=== PATIENT | male | born 1940 | race Caucasian/White ===

== ENCOUNTER 2016-11-21 14:34 | Inpatient (IN) | payer MEDICARE, BC ==
[~2016-11-21] VITALS: Ht 175.3 cm; Wt 77.1 kg
[~2016-11-21 14:34] MED LIST: ADVIL200 MG PO; ASPIRIN 81 MG E81 MG PO; BAYER CHEWABLE81 MG PO; BENADRYL25 MG PO; CYCLOBENZAPRINE10 MG PO; DEMEROL100 MG PO; DESERYL100 MG PO; DURAGESIC1 PATCH .1 TD; FLEXERIL10 MG PO; FOLATE0.4 MG PO; LEVOXYL50 MCG PO; MUCINEX600 MG PO; NASONEX NASAL S17 GM NS; OMEGA-3100 MG PO; OMNICEF300 MG PO; OXY IR30 MG PO; PEPCID20 MG PO; PLAVIX75 MG PO; SINGULAIR10 MG PO; VITAMIN B-12500 MC1 PO; VOLTAREN75 MG PO
[2016-11-21 15:04] LABS: BASOPHILS 0.2 % (0.0-2.0); EOSINOPHILS 3.3 % (0-7); HEMATOCRIT 40.7 % (42.0-54.0); HEMOGLOBIN 13.5 g/dL (13.5-17.5); IMMATURE GRANULOCYTES 0.3 % (0-5); LYMPHOCYTES 20.1 % (15-50); MCH 31.8 pg (26.0-34.0); MCHC 33.2 g/dL (31.0-37.0); MEAN PLATELET VOLUME 8.7 fL (7.4-10.4); MONOCYTES 9.4 % (2-11); NEUTROPHILS 66.7 % (40-80); RBC 4.24 10x6/uL (4.20-6.10); RDW 13.3 % (11.5-14.5); WBC 10.8 10x3/uL (4.8-10.8)
[2016-11-21 15:08] LABS: PLATELET COUNT 275 10x3/uL (130-400)
[2016-11-21 15:19] LABS: ALBUMIN 3.3 g/dL (3.4-5.0); ANION GAP 12.5 mmol/L (8-16); BILIRUBIN - TOTAL 0.53 mg/dL (0.2-1.3); CALCIUM 8.8 mg/dL (8.5-10.1); CREATININE - SERUM 1.5 mg/dL (0.6-1.3); POTASSIUM - SERUM 4.5 mmol/L (3.5-5.1)
[2016-11-21 16:47] LABS: APPEARANCE CLEAR (CLEAR); BILIRUBIN NEGATIVE (NEGATIVE); COLOR YELLOW (YELLOW); GLUCOSE NEGATIVE (NEGATIVE); KETONE NEGATIVE (NEGATIVE); LEUKOCYTE ESTERASE NEGATIVE (NEGATIVE); NITRITE NEGATIVE (NEGATIVE); PROTEIN NEGATIVE (NEGATIVE); SPECIFIC GRAVITY 1.015 (1.005-1.020); UROBILINOGEN NORMAL (NORMAL)
[2016-11-21 17:57] LABS: INR 1.04 (0.85-1.17); PROTIME 13.5 SECONDS (11.6-15.0)
[2016-11-21 18:05] LABS: AMYLASE - SERUM 46 U/L (25-115); LIPASE 71 U/L (73-393)
--- NOTE | 2016-11-21 22:03 | NUR ---
REC'D PER STRETCHER TO ROOM 2233 FROM ER DEPT A 76 Y/O W/M PER SERVICES DR. BOOGIE WITH DX. DIVERTICULITIS AND ABDOMINAL PAIN. ALLERGY=TALWIN. SALINE LOCK TO RT HAND AND LEAKING. IV REMOVED AND NEW IV STARTED TO RT ARM PER Yoly BARRY RN. PLUCK SEPARATOR OF DILAUDID SET UP.WITH SETTINGS AT 0.2MG Q10MIN /4MG Q4HL D5NS INFUSING AT 100CC'S/HR.ASSESSMENT PER ADMIT PACKET.
[2016-11-21 22:15] VITALS: BP 138/63; BMI 25.1
[2016-11-21] MEDS ORDERED: MUCINEX600 MG PO (22:30)
[2016-11-21] MEDS ORDERED: ADVAIR 250/501 DISK INH (22:32)
[2016-11-21] MEDS ORDERED: CLARITIN 10 MG10 MG PO (22:32)
--- NOTE | 2016-11-21 22:45 | NUR ---
VOIDS IN URINAL.
[2016-11-22] VITALS: BP 138/63
--- NOTE | 2016-11-22 | NUR ---
EYES CLOSED RESPIRATIONS WITH EASE AND UNLABORED.
--- NOTE | 2016-11-22 03:00 | NUR ---
VOIDS IN URINAL DENIES NEEDS.
[2016-11-22 04:00] VITALS: BP 119/57
--- NOTE | 2016-11-22 04:39 | NUR ---
EYES CLOSED RESPIRATIONS WITH EASE AND UNLABORED.
--- NOTE | 2016-11-22 07:54 | NUR ---
RECIEVED PATIENT DURING WALKING ROUNDS. PATIENT LYING IN BED WITH EVEN RESPIRATIONS. NO SIGNS OF DISTRESS NOTED. BED DOES NOT LOWER ALL THE WAY TO GROUND, WILL LOOK FOR NEW BED. UNDERSTANDS NPO DIET; NO QUESTIONS OR CONCERNS. ASSESSMENT DONE PER FLOW SHEET. CALL LIGHT WITHIN REACH. WILL CONTINUE TO MONITOR.
[2016-11-22 08:26] VITALS: BP 136/62
[2016-11-22 11:52] VITALS: BP 131/46
[2016-11-22 14:33] VITALS: BP 130/56
--- NOTE | 2016-11-22 14:42 | NUR ---
PATIENT AWAKE, ALERT AND ORIENTED X'S 4. RESPIRATIONS ARE EVEN AND UNLABORED ON ROOM AIR. NO SIGNS OF DISTRESS NOTED. FAMILY AT BEDSIDE.
[2016-11-22 16:49] VITALS: Ht 175.3 cm; Wt 77.1 kg
--- NOTE | 2016-11-22 20:00 | NUR ---
ASSESSMENT AK FLOWSHEET.IV TO RT FOREARM OF D5NS AT 75CC'S/HR. SR UP X2 CALL LIGHT WITHIN REACH.
--- NOTE | 2016-11-22 20:30 | NUR ---
C/O PAIN BACK/HEAD AND STOMACH. RATES PAIN LEVEL #5-6. BUPRENEX 0.3MG IVP GIVEN FOR PAIN CONTROL.
--- NOTE | 2016-11-22 21:00 | NUR ---
MEDS GIVEN PER MAR.
--- NOTE | 2016-11-22 22:00 | NUR ---
IV SWELLING AT SITE PAINFUL AND RED. IV REMOVED AND RESITED TO LEFT FOREARM #22G ANGIOCATH USED X1 ATTEMPT RESUMED IV FLUIDS.
[2016-11-22 22:11] VITALS: BP 140/74
--- NOTE | 2016-11-23 | NUR ---
RESTING QUIETLY AT THIS TIME.
--- NOTE | 2016-11-23 02:30 | NUR ---
REQUESTING PAIN MED FOR PAIN IN BACK AND HEAD RATES PAIN LEVEL #7-8. ACHING AND CRAMPING. BUPRENEX 0.3MG IVP GIVEN FOR PAIN CONTROL.
[2016-11-23 02:59] VITALS: BP 122/59
--- NOTE | 2016-11-23 04:57 | NUR ---
RESTING QUIETLY DENIES NEEDS.
--- NOTE | 2016-11-23 06:13 | NUR ---
C/O HEAD AND BACK PAIN BUPRENEX 0.3MG IVP GIVEN FOR PAIN CONTROL RATES PAIN LEVEL #6
--- NOTE | 2016-11-23 08:01 | NUR ---
PATIENT VERBALIZED NAUSEA, NOW RETCHING. PAGED . NO ORDERS FOR NAUSEA MEDICATION. ALSO PATIENT VERBALIZED A HEADACHE AND SERVERE CHRONIC PAIN.
[2016-11-23 08:42] VITALS: BP 171/83
--- NOTE | 2016-11-23 08:57 | NUR ---
REPORTS NAUSEA IS GONE
[2016-11-23 11:41] LABS: BASOPHILS 0.1 % (0.0-2.0); EOSINOPHILS 1.2 % (0-7); HEMATOCRIT 33.7 % (42.0-54.0); HEMOGLOBIN 11.1 g/dL (13.5-17.5); IMMATURE GRANULOCYTES 0.3 % (0-5); MCH 31.1 pg (26.0-34.0); MCHC 32.9 g/dL (31.0-37.0); MCV 94.4 fL (80.0-100.0); MEAN PLATELET VOLUME 8.5 fL (7.4-10.4); MONOCYTES 10.3 % (2-11); NEUTROPHILS 72.1 % (40-80); PLATELET COUNT 230 10x3/uL (130-400); RBC 3.57 10x6/uL (4.20-6.10); RDW 13.1 % (11.5-14.5)
[2016-11-23 11:42] LABS: WBC 7.8 10x3/uL (4.8-10.8)
[2016-11-23 11:55] LABS: ALBUMIN 2.6 g/dL (3.4-5.0); ANION GAP 9.7 mmol/L (8-16); BILIRUBIN - TOTAL 0.18 mg/dL (0.2-1.3); CALCIUM 7.8 mg/dL (8.5-10.1); CARBON DIOXIDE 28.6 mmol/L (21.0-32.0); CREATININE - SERUM 1.2 mg/dL (0.6-1.3); PROTEIN - SERUM 5.7 g/dL (6.4-8.2)
[2016-11-23 11:57] LABS: POTASSIUM - SERUM 3.3 mmol/L (3.5-5.1)
[2016-11-23 11:58] VITALS: BP 122/72
[2016-11-23 15:11] VITALS: BP 136/62
--- NOTE | 2016-11-23 19:30 | NUR ---
ASSESSMENT COMPLETED, NO ACUTE DISTRESS NOTED, C/O CHRONIC NECK AND BACK PAIN, WILL TREAT WHEN MEDICATION TIME LIMITS HAVE PASSED, DENIES OTHER NEEDS, SR'S UP, CL IN REACH, WILL MONITOR
[2016-11-23 20:30] VITALS: BP 134/69
--- NOTE | 2016-11-23 21:00 | NUR ---
MEDS GIVEN PER MAR, NO DISTRESS OR NEEDS, NOTED, SR'S UP , CL IN REACH
--- NOTE | 2016-11-23 21:57 | NUR ---
IV AB'S AND FLUIDS HUNG PER DEC, ARMBOARD PROVIDED TO ASSIST WITH NOT BENDING R ARM, PRESTON WELL, CL IN REACH
--- NOTE | 2016-11-23 22:29 | NUR ---
PRN PAIN MED GIVEN FOR C/O NECK AND BACK PAIN 05/04, PRESTON WELL, CL IN REACH
--- NOTE | 2016-11-24 03:37 | NUR ---
PRN PAIN MED GIVEN FOR C/O NECK/BACK PAIN 04/04 ALONG WITH SCHEDULED REGLAN, PRESTON WELL, CL IN REACH
[2016-11-24 05:30] VITALS: BP 111/60
--- NOTE | 2016-11-24 05:35 | NUR ---
MEDS GIVEN PER MAR, PRESTON WELL, DENIES NEEDS, CL IN REACH
--- NOTE | 2016-11-24 08:00 | NUR ---
ASSESSMENT PER FLOW SHEET.PT WITHOUT DISTRESS.CALL LIGHT IN REACH
[2016-11-24 08:39] VITALS: BP 169/79
[2016-11-24 09:32] LABS: BASOPHILS 0.3 % (0.0-2.0); EOSINOPHILS 2.3 % (0-7); HEMATOCRIT 33.6 % (42.0-54.0); HEMOGLOBIN 11.1 g/dL (13.5-17.5); IMMATURE GRANULOCYTES 0.2 % (0-5); LYMPHOCYTES 21.2 % (15-50); MCV 93.9 fL (80.0-100.0); MEAN PLATELET VOLUME 8.5 fL (7.4-10.4); MONOCYTES 9.5 % (2-11); NEUTROPHILS 66.5 % (40-80); PLATELET COUNT 219 10x3/uL (130-400); RBC 3.58 10x6/uL (4.20-6.10); RDW 13.2 % (11.5-14.5)
[2016-11-24] MEDS ORDERED: LEVAQUIN750 MG PO (09:47)
[2016-11-24] MEDS ORDERED: FLAGYL500 MG PO (09:48)
--- NOTE | 2016-11-24 09:50 | NUR ---
Patient Name: TRACY WEST Admission Status: ER Accout number: [id number] Admission Date: 11-21-2016 : 1940 Admission Diagnosis: Attending: ALEX Current LOS: 3 Anticipated DC Date: 11-24-2016 Planned Disposition: Home Primary Insurance: MEDICARE A & B Discharge Planning Comments: CM MET WITH PATIENT REGARDING D/C NEEDS AND PLANS. PATIENT STATED HE LIVES WITH HIS (STAN) AND SHE WILL PICK HIM UP TODAY AT DISCHARGE. PATIENT STATED THERE ARE 2 STEPS W/RAILS TO ENTER HOME AND 1 FLIGHT W/RAILS DOWNSTAIRS. PATIENT STATED HE IS INDEPENDENT WITH HIS CARE AND HAS A CANE, WHEELCHAIR, AND SHOWER CHAIR AT HOME IF NEEDED. PATIENTS PCP IS DR. ONTIVEROS AND PHARMACY IS [facility]. PATIENT DENIES NEEDS FOR HOME HEALTH. CM WILL CONTINUE TO FOLLOW PATIENT WITH D/C NEEDS AND PLANS. PCP DR. [facility]- [phone] STAN (SPOUSE) [phone] Radiation Oncology Therapist: Julisa Molina Is the patient Alert and Oriented? Yes 0 * How many steps to enter\exit or inside your home? 2 W/RAILS 0 * PCP DR ONTIVEROS 0 * Pharmacy [facility] 0 * Preadmission Environment Home with Family 0 * ADLs Independent 0 * Equipment Cane Shower Chair Wheelchair 0 * List name and contact numbers for known caregivers / representatives who currently or will assist patient after discharge: STAN (SPOUSE) [phone] 0 * Community resources currently utilized None 0 * Additional services required to return to the preadmission environment? Yes 0 * Can the patient safely return to the preadmission environment? Yes 0 * Has this patient been hospitalized within the prior 30 days at any hospital? No 0 Grand Total: 0
[2016-11-24 09:59] LABS: ALBUMIN 2.6 g/dL (3.4-5.0); ANION GAP 8.1 mmol/L (8-16); BILIRUBIN - TOTAL 0.3 mg/dL (0.2-1.3); CALCIUM 7.8 mg/dL (8.5-10.1); CARBON DIOXIDE 29.2 mmol/L (21.0-32.0); CREATININE - SERUM 1.3 mg/dL (0.6-1.3); POTASSIUM - SERUM 3.3 mmol/L (3.5-5.1); PROTEIN - SERUM 5.6 g/dL (6.4-8.2)
--- NOTE | 2016-11-24 10:45 | NUR ---
LEFT FLOOR VIA WHEELCHAIR FOR TRANSPORT HOME
== END 2016-11-24 10:45 | disposition home or self-care (01) | DRG 392 ==
LOC: D.ER 14:34 → D.MS 20:14
PROVIDERS: Emergency Medicine; Family Medicine Adult Medicine; ADMIT Family Medicine
DX: K57.92 Diverticulitis of intestine, part unspecified, without perforation or abscess without bleeding (principal); J44.9 Chronic obstructive pulmonary disease, unspecified; I25.10 Atherosclerotic heart disease of native coronary artery without angina pectoris; K21.9 Gastro-esophageal reflux disease without esophagitis; E03.9 Hypothyroidism, unspecified; K76.0 Fatty (change of) liver, not elsewhere classified; Z87.891 Personal history of nicotine dependence

== ENCOUNTER 2016-12-12 06:49 | Outpatient (CLI) | payer MEDICARE, BC ==
[~2016-12-12] VITALS: Ht 175.3 cm; Wt 76.4 kg
--- NOTE | ~2016-12-12 | HEMODYNAMI ---
PATIENT:TRACY WEST MEDICAL RECORD: [id number] : 42 LOCATION:DPanCAT ADMISSION DATE: 12/12/16 Generatedon:12/12/201610:31 Patient name: TRACY WEST Patient #: [id number] SSN: [id number] : 1940 Date of study: 12/12/2016 Page: Of Hemodynamic Procedure Report Patient Data Patient Demographics Procedure consent was obtained First Name: TRACY Gender: Male Last Name: JENNA : 1940 [facility] Initial: R Age: 76 year(s) Patient #: [id number] Race: Ethnicity: or SSN: [id number] Additional ID: [id number] Contact details Address: [address] [place] [address] [place] [employer] State: [place] City: [place] Zip code: [address] Past Medical History Allergies Allergen Reaction Date Comments Reported Other allergy 11/27/2015 GATITO Other allergy 12/12/2016 MARTI MEDEROS Admission Admission Data Admission Date: 12/12/2016 Admission Time: 6:49 Arrival Date: 12/12/2016 Arrival Time: 9:00 Admit Source: Other Insurance Payor: Medicare Height (in.): 69 BSA: 1.92 (m2) Height (cm.): 175.26 BMI: 24.81 (kg/m2) Weight (lbs.): 168 Weight (kg.): 76.2 Lab Results Lab Result Date: 12/12/2016 Lab Result Time: 0:00 Biochemistry Name Units Result Min Max BUN mg/dl 12 --(-*--)-- 7 18 Creatinine mg/dl 1.3 --(---*)-- 0.6 1.3 CBC Name Units Result Min Max Hemoglobin g/dl 12.2 *-(----)-- 13.5 17.5 Procedure Procedure Types Cath Procedure Diagnostic Procedure LHC LHC w/Coronaries w/Grafts PCI Procedure Coronary Stent Initial Miscellaneous Procedures Moderate Sedation up to 30 minutes Procedure Description Procedure Date Procedure Date: 12/12/2016 Procedure Start Time: 10:12 Procedure End Time: 10:29 Procedure Staff Name Function Magno Roque MD Performing Physician Kelle Lund RT Scrub Joseph Galvez RN Nurse Denae Stephenson RT Monitor Caleb Palma RT Board Certified Orthodontist Procedure Data Cath Procedure Fluoroscopy Diagnostic fluoroscopy Total fluoroscopy Time: 3.7 time: 3.7 min min Diagnostic fluoroscopy Total fluoroscopy dose: 265 dose: 265 mGy mGy Contrast Material Contrast Material Type Amount (ml) Isovue 370 86 Entry Location Entry Primary Successful Side Size Upsize Upsize Entry Closure Succes sful Closure Location (Fr) 1 (Fr) 2 (Fr) Remarks Device Remarks Femoral Right 5 Fr 6 Fr Exoseal artery Short Estimated blood loss: 5 ml Diagnostic catheters Device Type Used For End Catheter Placement Cordis 5Fr Pigtail LV Angiography Catheter (MP) Cordis 5Fr JL 4.0 Left Coronary Catheter (MP) Angiography Cordis 5Fr 3DRC Catheter Right Coronary (MP) Angiography Diagnostic Infinity 5Fr SVG Angiography AR 2 MOD catheter Procedure Complications No complications Procedure Medications Medication Administration Route Dosage Oxygen NC 2 l/min Lidocaine 2% added to field 20 Heparin Flush Bag added to field 2 bags (1000units/500ml NS) 0.9% NaCl I.V. ml/hr Versed I.V. 1 mg Fentanyl I.V. 50 mcg Versed I.V. 1 mg Fentanyl I.V. 50 mcg Versed I.V. 1 mg Heparin Bolus I.V. 4000 units Versed I.V. 1 mg Plavix P.O. 75 mg Hemodynamics Rest BSA: 1.92 (m2) HGB: 12.2 (g/dl) O2 Consumption: Estimated: 237.27 (ml/min) O2 Co nsumption indexed: Estimated:123.58 (ml/min/m) Heart Rate: 93 (bpm) Pressure Samples Time Site Value (mmHg) Purpose Heart Use Rate(bpm) 10:13 LV -2/-3,-7 Snapshot 85 Snapshots Pre Cath Intra NCS Post Cath Vital Signs Time Heart Resp SPO2 etCO2 [id number] NIBP (mmHg) Rhythm Pain Sedation Rate (ipm) (%) (mmHg) (mmHg) Status Level (bpm) 9:48:14 89 17 96 0 0 156/81(122) NSR 0 (11) 10(A) , No pain 9:52:30 92 25 100 0 0 154/84(130) NSR 0 (11) 10(A) , No pain 9:56:52 83 18 99 0 0 138/69(120) NSR 0 (11) 10(A) , No pain 10:01:10 85 18 99 0 0 137/66(105) NSR 0 (11) 10(A) , No pain 10:05:22 83 17 98 0 0 130/71(96) NSR 0 (11) 10(A) , No pain 10:09:36 83 16 98 0 0 126/69(91) NSR 0 (11) 10(A) , No pain 10:13:52 96 19 98 0 0 126/60(98) NSR 0 (11) 9(A) , No pain 10:18:04 88 16 98 0 0 132/70(111) NSR 0 (11) 9(A) , No pain 10:22:22 83 16 98 0 0 130/59(97) NSR 0 (11) 9(A) , No pain 10:26:32 86 16 98 0 0 123/65(94) NSR 0 (11) 10(A) , No pain Medications Time Medication Route Dose Verified Delivered Reason Notes Effectiveness by by 10:00:35 Oxygen NC 2 Magno Buffie used for l/min Jude Galvez RN procedure 10:00:43 Lidocaine 2% added 20ml Magno Magno for local to vial Jude Roque MD anesthetic field 10:00:50 Heparin Flush added 2 Magno Magno used for Bag to bags Jude Roque MD procedure (1000units/500ml field NS) 10:01:00 0.9% NaCl I.V. ml/hr Magno Buffie Per physician Jude Galvez RN 10:10:15 Versed I.V. 1 mg Magno Buffie for sedation Jude Galvez RN 10:10:21 Fentanyl I.V. 50 Magno Buffie for sedation mcg Jude Galvez RN 10:14:50 Versed I.V. 1 mg Magno Buffie for sedation Jude Galvez RN 10:14:54 Fentanyl I.V. 50 Magno Buffie for sedation mcg Jude Galvez RN 10:18:14 Versed I.V. 1 mg Magno Ruiz for sedation Jude Galvez RN 10:21:27 Heparin Bolus I.V. 4000 Magno Ruiz for verifi ed units Jude Galvez RN anticoagulation with dr roque 10:24:33 Versed I.V. 1 mg Magno Ruiz for sedation Jude Galvez RN 10:30:09 Plavix P.O. 75 mg Magno Ruiz for Jude Galvez RN antiplatelet therapy Procedure Log Time Note 9:32:31 Procedure type changed to Cath procedure, Diagnostic procedure, LHC, LHC w/Coronaries w/Grafts, PCI procedure, Coronary Stent Initial, Miscellaneous Procedures, Moderate Sedation up to 30 minutes 9:33:19 Caleb Palma RT(R) sent for patient. Start room use. 9:33:20 Time tracking: Regular hours 9:33:25 Plan of Care:Hemodynamics will remain stable., Cardiac rhythm will remain stable., Comfort level will be maintained., Respiratory function will remain adequate., Patient/ family verbilizes understanding of procedure., Procedure tolerated without complication., Recovers from procedure without complications.. 9:40:30 Lab Result : Creatinine 1.3 mg/dl 9:40:30 Lab Result : BUN 12 mg/dl 9:40:30 Lab Result : Hemoglobin 12.2 g/dl 9:42:25 Patient received from Outpatients to [facility] 1 Alert and oriented. Tansferred to table in Supine position. 9:42:26 Warm blankets applied, and brad hugger turned on for patient comfort. 9:42:27 Correct patient and procedure confirmed by team. 9:42:28 Signed procedure consent form obtained from patient. 9:42:29 ECG and BP/O2 sat monitors applied to patient. 9:47:09 Baseline sample Acquired. 9:47:09 Vital chart was started 9:47:14 Rhythm: sinus rhythm 9:47:16 Full Disclosure recording started 9:47:36 H&P Date Dictated: 12/10/2016 Within 30 days and on chart., H&P Addendum completed by physician on day of procedure. (MUST COMPLETE FOR ALL OUTPATIENTS). 9:47:38 Pre-procedure instructions explained to patient. 9:47:39 Pre-op teaching completed and patient verbalized understanding. 9:50:11 Family in waiting room. 9:50:13 Patient NPO since Midnight. 9:50:46 Patient allergic to Other allergyTALWIN, ARITHERMYCIN 9:50:48 Is the patient allergic to Iodine/contrast media? No. 9:50:56 Is patient on blood thinner?Yes 9:50:59 ACC The patient was administered the following blood thiners within the last 24 hours: ACCPlavix 9:51:01 Patient diabetic? No. 9:51:03 ----Pre-sedation anethsthesia assessment.---- 9:51:06 Previous problem with sedation/anesthesia? No ? 9:51:08 Snore? Yes 9:51:10 Sleep apnea? No 9:51:12 Deviated septum? No 9:51:13 Opens mouth fully? Yes 9:51:15 Sticks out tongue? Yes 9:51:27 Airway obstruction? Yes RIGHT LUNG FIBROSIS 9:51:36 Dentures? Yes OUT, UPPERS 9:51:39 Pre procedure: right dorsailis pedis pulse 1+ Palpable, but thready & weak; easily obliterated 9:51:43 Patient pain scale 0/10 ?. 9:51:51 IV patent on arrival in left wrist with 0.9% NaCl at 10ml/hr. 9:51:54 Lab results completed and on chart. 9:51:57 Right groin area was prepped with chlora-prep and draped in sterile fashion 9:51:58 Alarms reviewed by R. N. 9:51:58 Sharps counted by scrub and verified by R.N. 9:52:04 Use device set Femoral Dx 9:52:05 Acist Syringe opened to sterile field. 9:52:06 Bag Decanter opened to sterile field. 9:52:06 Medline Cath Pack opened to sterile field. 9:52:07 Terumo 5Fr [place] Sheath opened to sterile field. 9:52:08 St Suraj 260cm J .035 wire opened to sterile field. 9:52:09 Acist Hand Control opened to sterile field. 9:52:09 Acist Manifold opened to sterile field. 9:52:10 Diagnostic Infinity 5Fr Multipack catheter opened to sterile field. 9:52:10 Tegaderm 4 x 4 opened to sterile field. 9:53:47 Admit Source: Other 9:53:49 Patient Height : 69 inches 9:54:01 Patient Weight : 168 lbs 9:54:04 Arrival Date: 12/12/2016 9:00:00 AM 9:54:12 Insurance Payor : Medicare 9:58:38 Zero performed for pressure channel P1 10:00:35 Oxygen 2 l/min NC was given by Joseph Galvez RN; used for procedure; 10:00:43 Lidocaine 2% 20ml vial added to field was given by Magno Roque MD; for local anesthetic; 10:00:50 Heparin Flush Bag (1000units/500ml NS) 2 bags added to field was given by Magno Roque MD; used for procedure; 10:01:00 0.9% NaCl ml/hr I.V. was given by Joseph Galvez RN; Per physician; 10:09:50 Physician arrived 10::50 --------ALL STOP TIME OUT------ 10:09:51 Final Timeout: patient, procedure, and site verified with staff and physician. All members of the team are in agreement. 10:09:53 Right groin site verified by team. 10:09:56 Physical assessment completed. ASA score P 2 - A patient with mild systemic disease as per Magno Roque MD. 10:10:00 Sedation plan: IV Moderate Sedation Versed, Fentanyl 10:10:15 Versed 1 mg I.V. was given by Joseph Galvez RN; for sedation; 10:10:21 Fentanyl 50 mcg I.V. was given by Joseph Galvez RN; for sedation; 10:12:44 Procedure started. 10:12:47 Local anesthetic to right femoral artery with Lidocaine 2% by Magno Roque MD.INITIAL ACCESS ONLY 10:12:56 A 5 Fr sheath was inserted into the Right Femoral artery 10:13:36 A Cordis 5Fr Pigtail Catheter (MP) was advanced over the wire and used for LV Angiography. 10:13:56 LV hemodynamics recorded. 10:14:03 LV gram done using IBRAHIM 10:14:09 EF : 50 % 10:14:17 Catheter removed. 10:14:23 A Cordis 5Fr JL 4.0 Catheter (MP) was advanced over the wire and used for Left Coronary Angiography. 10:14:50 Versed 1 mg I.V. was given by Buffie Galvez RN; for sedation; 10:14:54 Fentanyl 50 mcg I.V. was given by Joseph Galvez RN; for sedation; 10:15:20 LCA angiography performed. 10:15:24 Injector settings: Ml/sec: 3, Volume: 6, 10:15:37 Catheter removed. 10:15:42 A Cordis 5Fr 3DRC Catheter () was advanced over the wire and used for Right Coronary Angiography. 10:15:57 RCA angiography performed. 10:16:34 Injector settings: Ml/sec: 3, Volume: 6, 10:16:50 HARTLEY angiography performed. 10:16:54 Catheter removed. 10:17:41 FlowMedicaisper J 300cm 0.014 guide wire opened to sterile field. 10:17:41 KallikixCompaMountain Alarm Inflation Kit opened to sterile field. 10:17:42 Terumo 6Fr [place] Sheath opened to sterile field. 10:18:03 A Diagnostic Infinity 5Fr AR 2 MOD catheter was advanced over the wire and used for SVG Angiography. 10:18:14 Versed 1 mg I.V. was given by Joseph Galvez RN; for sedation; 10:18:15 SVG to Circ angiography performed. 10:21:22 Catheter removed. 10:21:24 Proceeding to intervention. 10:21:27 Heparin Bolus 4000 units I.V. was given by Joseph Galvez RN; for anticoagulation; verified with dr roque 10:21:31 Sheath upsized to a 6 Fr Short. 10:21:43 Cordis 6FR XBLAD 3.5 guide catheter opened to sterile field. 10:21:54 6 Fr XBLAD 3.5 guide catheter was inserted over the wire 10:22:47 ER wire advanced. 10:24:33 Versed 1 mg I.V. was given by Joseph Galvez RN; for sedation; 10:25:40 Inflation Number: 1 A Medtronic Resolute 2.25 X 12 stent was prepped and advanced across the Mid LAD. The stent was deployed at 15 SANDRA for 0:10 (min:sec). 10:25:57 Inflation number: 2 The stent balloon was then re-inflated across the Mid LAD to 17 SANDRA for 0:10 (min:sec). 10:26:23 Stent catheter was removed intact over wire. 10:26:24 Wire removed. 10:26:25 Guide catheter removed. 10:26:49 Cordis 6Fr Exoseal opened to sterile field. 10:28:00 Sheath removed intact; hemostasis achieved with Exoseal to the Right Femoral artery. 10:28:03 Procedure ended.(Physican Out) 10::30 Fluoroscopy time 03.70 minutes. 10::35 Flurop Dose total: 265 10::35 Fluoroscopy dose: 265 mGy 10::44 Contrast amount:Isovue 370 86ml. 10::46 Sharps counted by scrub and verified by R.N. 10::55 Insertion/operative site no bleeding no hematoma. 10::57 Post-op/insertion site Right Femoral artery dressed using a 4 x 4 and Tegaderm. 10:29:00 Post right femoral artery:stable 10:29:02 Post Procedure Pulses reassessed and unchanged 10:29:04 Post procedure rhythm: unchanged. 10:29:07 Estimated blood loss: 5 ml 10:29:09 Post procedure instruction explained to patient.Patient verbalizes understanding. 10:29:09 Patient needs reinforcement of post procedure teaching. 10:29:11 Procedure and supply charges have been captured, reviewed, submitted and are correct. 10:29:17 Procedure Complication : No complications 10:29:18 Vital chart was stopped 10:29:19 See physician's report for complete and final results. 10:29:21 Report given to Pre/Post Procedure Room. 10:29:24 Patient transfered to Pre/Post Procedure Room with Stretcher. 10:29:26 Procedure ended. 10:29:26 Full Disclosure recording stopped 10:29:37 ACC-PCI Only Patient was given prescriptions, or instructed by Magno Roque MD to start/continue the following medications upon discharge: Plavix 10::39 End room use (Document Last) 10:30:09 Plavix 75 mg P.O. was given by Joseph Galvez RN; for antiplatelet therapy; Intervention Summary Intervention Notes Time ActionType Lesion and Equipment Action# Pressure Duration Attributes Used 10:25:40 Place stent Mid LAD Medtronic 1 15 00:10 Resolute 2.25 X 12 stent 10:25:57 Reinflate Mid LAD Medtronic 2 17 00:10 stent Resolute balloon 2.25 X 12 stent Device Usage Item Name Manufacture Quantity Catalog Hospital Part Current Minimal Lot# / Number Charge Number Stock Stock Serial# Code Acist Acist 1 30419 128039 365002 064583 20 Syringe Medical Systems Inc Bag Microtek 1 2002S 436376 93832 275873 5 Wheelz Medical Inc. Medline Cardinal 1 [id number] 561270 72738 380518 5 Cath Pack Health Terumo 5Fr Terumo 1 [id number] 410479 121233 467472 [address] Suraj 1 584103 693810 018564 612326 30 260cm J .035 wire Acist Hand Acist 1 14406 851043 094360 439487 5 Control Medical Systems Inc Acist Acist 1 13159 640095 368405 273253 5 Manifold Medical Systems Inc Diagnostic Cardinal 1 [id number] 493327 90929 526242 30 AirInSpace Health 5Fr Multipack catheter Tegaderm 4 3M 1 1626W 195505 720056 603793 5 x 4 Cordis 5Fr Cardinal 1 566380 5 Pigtail Health Catheter (MP) Cordis 5Fr Cardinal 1 886003 5 JL 4.0 Health Catheter (MP) Cordis 5Fr Cardinal 1 106883 5 3DRC Health Catheter (MP) Jimenez Jimenez 1 [id number] 230109 610231 249788 5 Whisper J Vascular 300cm 0.014 guide wire Merit Merit 1 [id number] 495560 916330 843397 15 Meetmeals Medical Inflation Kit Terumo 6Fr Terumo 1 [id number] 441463 624416 085529 40 [place] Sheath Diagnostic Cardinal 1 [id number] 131358 597749 081258 20 AirInSpace Health 5Fr AR 2 MOD catheter Cordis 6FR Cardinal 1 [id number] 407229 309992 886923 10 XBLAD 3.5 Health guide catheter Medtronic Medtronic 1 [id number] 031144 356176 5 [id number] Resolute 2.25 X 12 stent Cordis 6Fr Cardinal 1 EX600 919962 636281 625606 10 AcEmpire Signature Audit [place] Stage Time Signature Unsigned Intra-Procedure 12/12/2016 Denae Stephenson 10:31:11 AM RT(R) Signatures Monitor : Denae Stephenson RT Signature : Date : Time : [place] [address] [place] [address]
[~2016-12-12 06:49] MED LIST changes: +ADVAIR 250/501 DISK INH; +CLARITIN 10 MG10 MG PO; +FLAGYL500 MG PO; +LEVAQUIN750 MG PO
[2016-12-12] MEDS ORDERED: PLAVIX75 MG PO (07:20)
[2016-12-12 07:30] VITALS: BP 144/69; Ht 175.3 cm; Wt 76.4 kg
[2016-12-12] MEDS ORDERED: LEVOTHYROXINE75 MCG PO (07:34)
[2016-12-12 07:45] LABS: ANION GAP 7.9 mmol/L (8-16); CALCIUM 8.7 mg/dL (8.5-10.1); CARBON DIOXIDE 31.4 mmol/L (21.0-32.0); CREATININE - SERUM 1.3 mg/dL (0.6-1.3); POTASSIUM - SERUM 4.3 mmol/L (3.5-5.1)
[2016-12-12 08:00] LABS: BASOPHILS 0.4 % (0.0-2.0); HEMATOCRIT 36.9 % (42.0-54.0); HEMOGLOBIN 12.2 g/dL (13.5-17.5); IMMATURE GRANULOCYTES 0.5 % (0-5); MCH 31.1 pg (26.0-34.0); MCHC 33.1 g/dL (31.0-37.0); MCV 94.1 fL (80.0-100.0); MEAN PLATELET VOLUME 8.6 fL (7.4-10.4); MONOCYTES 10.1 % (2-11); PLATELET COUNT 264 10x3/uL (130-400); RBC 3.92 10x6/uL (4.20-6.10); RDW 13.3 % (11.5-14.5); WBC 7.7 10x3/uL (4.8-10.8)
[2016-12-12 08:05] LABS: INR 1.02 (0.85-1.17); PROTIME 13.2 SECONDS (11.6-15.0)
--- NOTE | 2016-12-12 11:19 | NUR ---
1100-RIGHT GROIN- CDI, NO HEMATOMA NOTED, SOFT TO TOUCH
--- NOTE | 2016-12-12 12:24 | NUR ---
1130-RIGHT GROIN CDI, NO CHANGES NOTED
--- NOTE | 2016-12-19 08:46 | OP ---
PATIENT NAME: TRACY WEST MEDICAL RECORD: [id number] :41 LOCATION:D.CAT ADMISSION DATE: SURGEON: LIZZY WILSON MD DATE OF OPERATION: 12/12/2016 PROCEDURES: 1. PTCA stent LAD. 2. Left heart catheterization. 3. Selective coronary angiography. 4. Vein graft angiography. 5. HARTLEY angiography. INDICATION: Angina and coronary artery disease. PROCEDURE IN DETAIL: After informed consent was obtained and after a detailed explanation of the risks, benefits as well as alternative therapies, the patient elected to proceed with angiogram and angioplasty. The right femoral area was prepped and draped in normal sterile fashion. Right femoral artery was cannulated via modified Seldinger technique with placement of 6-Azeri sheath. All catheters exchanged through this sheath. FINDINGS: The left ventriculogram was performed in standard 30-degree IBRAHIM view reveals preserved cardiac wall motion, ejection fraction 50%. SELECTIVE CORONARY ANGIOGRAPHY: 1. Left main is with no significant angiographic disease. 2. Left anterior descending in the proximal aspect leads into a large septal system. This is 90% stenosed. The circumflex is closed. This is a change from previous angiography. 3. The right coronary has moderate irregularities, but no flow-limiting stenosis. Previously placed stent is widely patent. 4. HARTLEY to the distal LAD is widely patent. Vein graft to the circumflex first obtuse marginal was widely patent. PTCA STENT OF THE PROXIMAL LAD LEADING INTO A LARGE SEPTAL SYSTEM: The stent used was a 2.25 x 12 mm Resolute. Result was 0% residual stenosis. OVERALL IMPRESSION: Successful percutaneous transluminal coronary angioplasty stent of the proximal LAD prior to the total occlusion of the LAD leading into a large septal system going from 90% initial stenosis to 0% residual. TRANSINT:[id number] Voice Confirmation ID: [id number] DOCUMENT ID: [id number] LIZZY WILSON MD at 0846 CC: [id number] DICTATION DATE: 12/12/16 1030 EMERGENCY MEDICAL DISPATCHER: 12/12/16 1811 DEP CLI 12/12/16 [place] [address]
== END 2016-12-12 14:30 | disposition home or self-care (01) ==
LOC: D.CATH 06:49
PROVIDERS: Internal Medicine Interventional Cardiology
DX: I25.119 Atherosclerotic heart disease of native coronary artery with unspecified angina pectoris (principal); Z95.5 Presence of coronary angioplasty implant and graft; Z95.1 Presence of aortocoronary bypass graft
CPT/HCPCS: 93459; C9600

== ENCOUNTER → 2017-04-17 09:15 | Outpatient (CLI) | payer MEDICARE, BC ==
[2016-12-12 07:30] VITALS: BMI 24.8
[~2017-04-17 09:15] MED LIST changes: +LEVOTHYROXINE75 MCG PO
== END | disposition home or self-care (01) ==
LOC: D.RT 09:15
DX: J45.909 Unspecified asthma, uncomplicated (principal)

== ENCOUNTER → 2017-04-22 14:41 | Outpatient (CLI) | payer MEDICARE, BC ==
[2016-12-12 07:30] VITALS: BMI 24.8
== END | disposition home or self-care (01) ==
LOC: D.CN 14:41 → D.CT 17:00
DX: S09.90XA Unspecified injury of head, initial encounter (principal); R94.31 Abnormal electrocardiogram [ECG] [EKG]; I44.7 Left bundle-branch block, unspecified; W19.XXXA Unspecified fall, initial encounter

== ENCOUNTER 2017-05-24 15:22 | Emergency (ER) | payer MEDICARE, BC ==
[2016-12-12 07:30] VITALS: BMI 24.8
[2017-05-24 16:09] LABS: BASOPHILS 0.4 % (0-2); EOSINOPHILS 1.8 % (0-7); HEMATOCRIT 40.4 % (42.0-54.0); HEMOGLOBIN 13.8 g/dL (13.5-17.5); IMMATURE GRANULOCYTES 0.4 % (0-5); LYMPHOCYTES 21.7 % (15-50); MCH 32.2 pg (26.0-34.0); MCHC 34.2 g/dL (31.0-37.0); MCV 94.2 fL (80.0-100.0); MONOCYTES 9.6 % (2-11); NEUTROPHILS 66.1 % (40-80); PLATELET COUNT 254 10x3/uL (130-400); RBC 4.29 10x6/uL (4.20-6.10); WBC 9.5 10x3/uL (4.8-10.8)
[2017-05-24 16:51] LABS: ALBUMIN 3.5 g/dL (3.4-5.0); ALKALINE PHOSPHATASE 78 U/L (46-116); ALT (SGPT) 28 U/L (10-68); BILIRUBIN - TOTAL 0.45 mg/dL (0.2-1.3); CALC OSMOLALITY 285 mosm/kg (275-300); CALCIUM 8.6 mg/dL (8.5-10.1); CARBON DIOXIDE 26.8 mmol/L (21.0-32.0); CHLORIDE - SERUM 102 mmol/L (98-107); CREATININE - SERUM 1.9 mg/dL (0.6-1.3); GLUCOSE 169 mg/dL (74-106); POTASSIUM - SERUM 4.2 mmol/L (3.5-5.1); PROTEIN - SERUM 6.9 g/dL (6.4-8.2); SODIUM 140 mmol/L (136-145); UREA NITROGEN 22 mg/dL (7-18); eGFR NON AFRICAN AMERICAN 37 mL/min (90-120)
[2017-05-24 17:01] LABS: CHOL - HDL RATIO 8.3 ratio (2.3-4.9); CHOLESTEROL, TOTAL 289 mg/dL (0-200); CKMB 2.2 U/L (0.0-3.6); CREATINE KINASE 179 UL (21-232); HDL CHOLESTEROL 35 mg/dL (32-96); LDL CHOLESTEROL 202 mg/dL (0-100); LDL-HDL RATIO 5.8 ratio (1.5-3.5); PRO BNP 464 pg/mL (0-450); TRIGLYCERIDE 260 mg/dL (30-200); TROPONIN-I < 0.017 ng/mL (0.000-0.060)
[2017-05-24 17:58] LABS: CREATINE KINASE 160 UL (21-232)
[2017-05-24 18:00] LABS: TROPONIN-I < 0.017 ng/mL (0.000-0.060)
== END 2017-05-24 21:19 | disposition home or self-care (01) ==
LOC: D.ER 15:22
PROVIDERS: Family Medicine; Physician Assistant Medical
DX: R07.9 Chest pain, unspecified (principal); R06.00 Dyspnea, unspecified; R06.2 Wheezing; F41.9 Anxiety disorder, unspecified; R00.0 Tachycardia, unspecified

== ENCOUNTER 2017-05-29 07:06 | Outpatient (CLI) | payer MEDICARE, BC ==
[~2017-05-29] VITALS: Ht 172.7 cm; Wt 77.3 kg
--- NOTE | ~2017-05-29 | OP ---
PATIENT NAME: TRACY WEST MEDICAL RECORD: [id number] :41 LOCATION:D.CAT ADMISSION DATE: SURGEON: LIZZY WILSON MD DATE OF OPERATION: 05/29/2017 PROCEDURES: 1. PTCA stent RCA. 2. Intravascular ultrasound. 3. Left heart catheterization. 4. Selective coronary angiography. 5. Left ventriculogram. 6. Vein graft angiography. 7. HARTLEY angiography. INDICATION: Angina and coronary artery disease. PROCEDURE IN DETAIL: After informed consent was obtained after detailed explanation of risks, benefits as well as alternative therapies, the patient elected to proceed with angiogram and angioplasty. The right femoral area was prepped and draped in normal sterile fashion. The right femoral artery was cannulated via modified Seldinger technique with placement of 6-Indonesian sheath. All catheters exchanged through this sheath. FINDINGS: The left ventriculogram was performed in standard 30-degree IBRAHIM view, reveals good cardiac wall motion throughout all segments. Overall ejection fraction estimated at 50%. SELECTIVE CORONARY ANGIOGRAPHY: 1. Left main has a previously placed stent with 70% in-stent restenosis. This leads only into a septal stock order lister. 2. The left anterior descending is totally occluded. 3. Left circumflex is totally occluded. 4. Vein graft to the circumflex is widely patent. 5. Vein graft to the diagonal is widely patent. 6. HARTLEY to the LAD is widely patent; however, after this, there is 90% stenosis of the LAD itself. 7. The right coronary has previously placed stents. There are multiple areas of 80% in-stent restenosis. PTCA STENT OF THE RIGHT CORONARY: The stent used was a 3.0 x 15 mm Resolute stent Ballooning was undertaken throughout the entirety of the RCA with a 3-0 balloon taken to 17 atmospheres. Result was 0% residual stenosis. OVERALL IMPRESSION: Successful percutaneous transluminal coronary angioplasty stent of the right coronary artery going from 80% initial stenosis to 0% residual stenosis. PLAN: PTCA stent of the LAD through the HARTLEY graft in the near future. TRANSINT:[id number] Voice Confirmation ID: [id number] DOCUMENT ID: [id number] OPERATIVE REPORT [id number] TRACY WEST LIZZY WILSON MD CC: [id number] DICTATION DATE: 05/29/17 1033 SUPERVISOR PAPER MACHINE: 05/29/17 1219 [facility] [address] [place] [address]
--- NOTE | ~2017-05-29 | HEMODYNAMI ---
PATIENT:TRACY WEST MEDICAL RECORD: [id number] : 42 LOCATION:D.CAT ADMISSION DATE: 05/29/17 Generatedon:05/29/201710:35 Patient name: TRACY WEST Patient #: [id number] SSN: [id number] : 1940 Date of study: 05/29/2017 Page: Of Hemodynamic Procedure Report Patient Data Patient Demographics Procedure consent was obtained First Name: TRACY Gender: Male Last Name: JENNA : 1940 [facility] Initial: R Age: 77 year(s) Patient #: [id number] Race: SSN: [id number] Additional ID: [id number] Contact details [address]: [address] [place] [address] [employer] State: [place] City: [place] Zip code: [address] Past Medical History History of disease Date Diagnosis Comments CAD Allergies Allergen Reaction Date Comments Reported Other allergy 11/27/2015 TALWIN Other allergy 12/12/2016 GATITO, ARITHERMYCIN Other allergy 05/29/2017 Gatito Admission Admission Data Admission Date: 05/29/2017 Admission Time: 7:06 Admit Source: Other Height (in.): 68 BSA: 1.91 (m2) Height (cm.): 172.72 BMI: 25.85 (kg/m2) Weight (lbs.): 170 Weight (kg.): 77.11 Lab Results Lab Result Date: 05/29/2017 Lab Result Time: 0:00 Biochemistry Name Units Result Min Max BUN mg/dl 15 --(--*-)-- 7 18 Creatinine mg/dl 1.8 --(----)-* 0.6 1.3 CBC Name Units Result Min Max Hemoglobin g/dl 12.9 -*(----)-- 13.5 17.5 Procedure Procedure Types Cath Procedure Diagnostic Procedure [facility] w/Coronaries FFR/IVUS Intra-Coronary IVUS Initial PCI Procedure Coronary Stent Initial Miscellaneous Procedures Moderate Sedation up to 15 minutes Moderate Sedation up to 45 minutes Procedure Description Procedure Date Procedure Date: 05/29/2017 Procedure Start Time: 9:57 Procedure End Time: 10:32 Procedure Staff Name Function Silvio Oh RT Monitor Magno Roque MD Performing Physician Sharon Riley RN Nurse Ioana Ashby RT Scrub Procedure Data Cath Procedure Fluoroscopy Diagnostic fluoroscopy Total fluoroscopy Time: 8 time: 8 min min Diagnostic fluoroscopy Total fluoroscopy dose: 907 dose: 907 mGy mGy Contrast Material Contrast Material Type Amount (ml) Isovue 300 103 Entry Location Entry Primary Successful Side Size Upsize Upsize Entry Closure Succes sful Closure Location (Fr) 1 (Fr) 2 (Fr) Remarks Device Remarks Femoral Right 5 Fr 6 Fr Exoseal artery Short Estimated blood loss: 10 ml Diagnostic catheters Device Type Used For End Catheter Placement Cordis 5Fr Pigtail Procedure Catheter (MP) Cordis 5Fr JL 4.0 Procedure Catheter (MP) Cordis 5Fr 3DRC Catheter Procedure (MP) Procedure Medications Medication Administration Route Dosage Oxygen NC 2 l/min Heparin Flush Bag added to field 2 bags (1000units/500ml NS) Lidocaine 2% added to field 20 Versed I.V. 1 mg Fentanyl I.V. 50 mcg Fentanyl I.V. 25 mcg Versed I.V. 1 mg Fentanyl I.V. 25 mcg Versed I.V. 0.5 mg Fentanyl I.V. 25 mcg Heparin Bolus I.V. 4000 units Versed I.V. 0.5 mg Fentanyl I.V. 25 mcg Hemodynamics Rest BSA: 1.91 (m2) HGB: 12.9 (g/dl) O2 Consumption: Estimated: 231.15 (ml/min) O2 Co nsumption indexed: Estimated:121.02 (ml/min/m) Heart Rate: 86 (bpm) Pressure Samples Time Site Value (mmHg) Purpose Heart Use Rate(bpm) 10:07 LV 113/8,11 Snapshot 84 Snapshots Pre Cath Intra NCS Post Cath Vital Signs Time Heart Resp SPO2 NIBP (mmHg) Rhythm Pain Status Sedation Rate (ipm) (%) Level (bpm) 9:20:51 84 16 98 158/84(123) NSR 5 (11) , 10(A) Very distressing 9:25:05 84 10 100 157/87(128) NSR 4 (11) , 10(A) Distressing 9:29:21 87 18 100 153/81(122) NSR 1 (11) , 10(A) Very mild 9:33:41 84 15 100 148/75(120) NSR 0 (11) , No 10(A) pain 9:37:55 86 16 100 145/76(115) NSR 0 (11) , No 10(A) pain 9:42:11 81 19 99 134/72(101) NSR 0 (11) , No 10(A) pain 9:46:27 80 18 98 130/66(108) NSR 0 (11) , No 9(A) pain 9:50:39 81 16 97 126/71(93) NSR 0 (11) , No 9(A) pain 9:54:47 85 16 96 124/69(106) NSR 0 (11) , No 9(A) pain 9:59:01 82 19 97 117/65(82) NSR 0 (11) , No 9(A) pain 10:03:13 84 18 96 120/64(90) NSR 0 (11) , No 9(A) pain 10:07:21 84 16 97 125/64(89) NSR 0 (11) , No 9(A) pain 10:11:32 88 19 98 137/70(96) NSR 0 (11) , No 9(A) pain 10:15:49 91 16 97 132/71(98) NSR 0 (11) , No 9(A) pain 10:19:58 89 16 98 134/66(94) NSR 0 (11) , No 9(A) pain 10:24:16 90 16 98 138/62(109) NSR 0 (11) , No 9(A) pain 10:28:32 94 16 98 146/76(110) NSR 0 (11) , No 9(A) pain 10:32:49 90 9 96 143/69(106) NSR 0 (11) , No 9(A) pain Medications Time Medication Route Dose Verified Delivered Reason Notes Effectiveness by by 9:21:11 Oxygen NC 2 Magno Sharon Per physician l/min Jude Riley RN 9:21:20 Heparin Flush added 2 Magno Kiran used for Bag to bags Jude Roque MD procedure (1000units/500ml field NS) 9:21:28 Lidocaine 2% added 20ml Magno Kiran used for to vial Jude Roque MD procedure field 9:22:30 Fentanyl I.V. 50 Magno Sharon for back pain mcg Jude Riley RN 9:35:16 Versed I.V. 1 mg Magno Sharon for sedation Jude Riley RN 9:36:57 Fentanyl I.V. 25 Magno Sharon for sedation mcg Jude Riley RN 9:38:36 Versed I.V. 1 mg Magno Sharon for sedation Jude Riley RN 9:38:44 Fentanyl I.V. 25 Magno Sharon for sedation mcg Jude Riley RN 9:42:14 Versed I.V. 0.5 Magno Sharon for sedation mg Jude Riley RN 9:42:22 Fentanyl I.V. 25 Magno Sharon for sedation mcg Jude Riley RN 10:06:14 Versed I.V. 0.5 Magno Sharon for sedation mg Jude Riley RN 10:06:32 Fentanyl I.V. 25 Magno Sharon for sedation mcg Jude Riley RN 10:13:47 Heparin Bolus I.V. 4000 Magno Sharon for dose units Jude Riley RN anticoagulation verified with dr roque Procedure Log Time Note 8:50:47 Informed consent obtained and on chart 8:51:00 Diagnostic Cath Status : Elective 8:58:16 Lab Result : Hemoglobin 12.9 g/dl 8:58:16 Lab Result : Creatinine 1.8 mg/dl 8:58:16 Lab Result : BUN 15 mg/dl 9:06:46 Silvio Oh RT(R) (CV) sent for patient. Start room use. 9:06:48 Time tracking: Regular hours 9:06:53 Plan of Care:Hemodynamics will remain stable., Cardiac rhythm will remain stable., Comfort level will be maintained., Respiratory function will remain adequate., Patient/ family verbilizes understanding of procedure., Procedure tolerated without complication., Recovers from procedure without complications.. 9:19:36 Patient received from Pre/Post Procedure Room to CCL 2 Alert and oriented. Tansferred to table in Supine position. 9:19:37 Warm blankets applied, and brad hugger turned on for patient comfort. 9:19:38 Correct patient and procedure confirmed by team. 9:19:39 ECG and BP/O2 sat monitors applied to patient. 9:19:40 Vital chart was started 9:19:40 Baseline sample Acquired. 9:20:24 Rhythm: sinus rhythm 9:20:26 Full Disclosure recording started 9:21:11 Oxygen 2 l/min NC was administered by Sharon Riley RN; Per physician; 9:21:20 Heparin Flush Bag (1000units/500ml NS) 2 bags added to field was administered by Magno Roque MD; used for procedure; 9:21:28 Lidocaine 2% 20ml vial added to field was administered by Magno Roque MD; used for procedure; 9:22:08 H&P Date Dictated: 05/25/2017 Within 30 days and on chart., H&P Addendum completed by physician on day of procedure. (MUST COMPLETE FOR ALL OUTPATIENTS). 9:22:10 Pre-procedure instructions explained to patient. 9:22:11 Pre-op teaching completed and patient verbalized understanding. 9:22:15 Family in patients room. 9:22:18 Patient NPO since Midnight. 9:22:30 Fentanyl 50 mcg I.V. was administered by Sharon Riley RN; for back pain; 9:22:45 Patient allergic to Other allergy Gatito 9:22:48 Is the patient allergic to Iodine/contrast media? No. 9:23:18 Is patient on blood thinner?Yes 9:23:24 Patient diabetic? No. 9:23:28 ----Pre-sedation anethsthesia assessment.---- 9:24:06 Previous problem with sedation/anesthesia? No ? 9:24:08 Snore? Yes 9:24:10 Sleep apnea? No 9:24:11 Deviated septum? No 9:24:12 Opens mouth fully? Yes 9:24:14 Sticks out tongue? Yes 9:25:45 Airway obstruction? Yes PULMONARY FIBROSIS 9:26:02 Dentures? Yes OUT 9:26:07 Pre procedure: right dorsailis pedis pulse 1+ Palpable, but thready & weak; easily obliterated 9:26:25 Patient pain scale 4/10 BACK PAIN. 9:26:58 IV patent on arrival in left antecubital with 0.9% NaCl at [facility]. 9:27:09 Lab results completed and on chart. 9:27:15 Right groin area was prepped with chlora-prep and draped in sterile fashion 9:27:16 Alarms reviewed by R. N. 9:27:17 Sharps counted by scrub and verified by R.N. 9:27:22 Use device set Femoral Dx 9:27:24 Bag Decanter opened to sterile field. 9:27:24 Acist Syringe opened to sterile field. 9:27:25 Terumo 5Fr [place] Sheath opened to sterile field. 9:27:25 Medline Cath Pack opened to sterile field. 9:27:26 St Suraj 260cm J .035 wire opened to sterile field. 9:27:27 Acist Hand Control opened to sterile field. 9:27:28 Acist Manifold opened to sterile field. 9:27:30 Diagnostic Infinity 5Fr Multipack catheter opened to sterile field. 9:27:31 Tegaderm 4 x 4 opened to sterile field. 9::58 Admit Source: Other 9:28:21 Patient Height : 172.72 cm 9:28:26 Patient Weight : 77.11 kg 9:34:18 Physician arrived 9:34:19 --------ALL STOP TIME OUT------ 9:34:23 Final Timeout: patient, procedure, and site verified with staff and physician. All members of the team are in agreement. 9:34:26 Right groin site verified by team. 9:34:29 Physical assessment completed. ASA score P 2 - A patient with mild systemic disease as per Magno Roque MD. 9:34:34 Sedation plan: IV Moderate Sedation Versed, Fentanyl 9:35:16 Versed 1 mg I.V. was administered by Sharon Riley RN; for sedation; 9:36:40 Zero performed for pressure channel P1 9:36:57 Fentanyl 25 mcg I.V. was administered by Sharon Riley RN; for sedation; 9:38:36 Versed 1 mg I.V. was administered by Sharon Riley RN; for sedation; 9:38:44 Fentanyl 25 mcg I.V. was administered by Sharon Riley RN; for sedation; 9:42:14 Versed 0.5 mg I.V. was administered by Sharon Riley RN; for sedation; 9:42:22 Fentanyl 25 mcg I.V. was administered by Sharon Riley RN; for sedation; 9:52:46 Baseline sample Acquired. 9:57:41 Procedure started. 9:57:45 Local anesthetic to right femoral artery with Lidocaine 2% by Magno Roque MD.INITIAL ACCESS ONLY 10:06:14 Versed 0.5 mg I.V. was administered by Sharon Riley RN; for sedation; 10:06:25 A 5 Fr sheath was inserted into the Right Femoral artery 10:06:32 Fentanyl 25 mcg I.V. was administered by Sharon Riley RN; for sedation; 10:06:39 A Cordis 5Fr Pigtail Catheter (MP) was advanced over the wire and used for Procedure. 10:07:15 LV hemodynamics recorded. 10:07:17 LV gram done using IBRAHIM 10:07:37 EF : 50 % 10:07:40 Catheter removed. 10:07:55 A Cordis 5Fr JL 4.0 Catheter (MP) was advanced over the wire and used for Procedure. 10:08:30 LCA angiography performed. 10:09:05 Catheter removed. 10:09:23 A Cordis 5Fr 3DRC Catheter (MP) was advanced over the wire and used for Procedure. 10:09:41 HARTLEY to LAD angiography performed. 10:10:03 RCA angiography performed. 10:10:54 Catheter removed. 10:10:56 Medtronic Launcher 5Fr AR 1.0 guide catheter opened to sterile field. 10:12:20 SVG to OM angiography performed. 10:12:25 Catheter removed. 10:13:16 Terumo 6Fr [place]staff Sheath opened to sterile field. 10:13:17 Medtronic Launcher 6Fr AR 1.0 SH guide catheter opened to sterile field. 10:13:18 Jimenez Whisper J 300cm 0.014 guide wire opened to sterile field. 10:13:20 TISSUELAB BasixCompak Inflation Kit opened to sterile field. 10:13:23 Proceeding to intervention. 10:13:37 Sheath upsized to a 6 Fr Short. 10:13:47 Heparin Bolus 4000 units I.V. was administered by Sharon [place] RN; for anticoagulation; dose verified with dr roque 10:14:05 Procedure type changed to Cath procedure, Diagnostic procedure, LHC, [facility] w/Coronaries, FFR/IVUS, Intra-Coronary IVUS Initial, PCI procedure, Coronary Stent Initial, Miscellaneous Procedures, Moderate Sedation up to 15 minutes, Moderate Sedation up to 45 minutes 10:14:19 [place] Yocha Dehe Eagleye IVUS Catheter opened to sterile field. 10:14:46 6 Fr AR 1 guide catheter was inserted over the wire 10:14:53 WHISPER wire advanced. 10:15:02 FFR/IVUS 10:17:51 IVUS catheter advanced over wire. 10:17:54 IVUS pass to RCA lesion performed. 10:17:56 IVUS catheter removed over wire. 10:18:06 80% 10:22:15 Inflation number: 1 A Mozec Rx 3.0 x 41 balloon was prepped and advanced across the Dist RCA, then inflated to 13 SANDRA for 0:10 (min:sec). 10:22:29 Balloon removed over the wire. 10:24:35 Inflation Number: 2 A Moncho OTW 3.0 x 15 stent was prepped and advanced across the Dist RCA. The stent was deployed at 13 SANDRA for 0:10 (min:sec). 10:25:39 Stent catheter was removed intact over wire. 10:25:40 Wire removed. 10:25:41 Guide catheter removed. 10:25:49 Cordis 6Fr Exoseal opened to sterile field. 10:26:01 Sheath removed intact; hemostasis achieved with Exoseal to the Right Femoral artery. 10:26:05 Procedure ended.(Physican Out) 10:26:20 Fluoroscopy time 08.00 minutes. 10:26:29 Fluoroscopy dose: 907 mGy 10:26:29 Flurop Dose total: 907 10:26:36 Contrast amount:Isovue 300 103ml. 10:26:39 Sharps counted by scrub and verified by R.N. 10:31:22 Insertion/operative site no bleeding no hematoma. 10:31:25 Post-op/insertion site Right Femoral artery dressed using a 4 x 4 and Tegaderm. 10:31:31 Post right femoral artery:stable 10:31:35 Post Procedure Pulses reassessed and unchanged 10:31:38 Post-procedure physical assessment completed. ASA score P 2 - A patient with mild systemic disease as per Magno Roque MD. 10:31:42 Post procedure rhythm: unchanged. 10:31:45 Estimated blood loss: 10 ml 10:31:46 Post procedure instruction explained to patient.Patient verbalizes understanding. 10:31:49 Patient needs reinforcement of post procedure teaching. 10:32:19 Procedure and supply charges have been captured, reviewed, submitted and are correct. 10:32:21 See physician's report for complete and final results. 10:32:21 Vital chart was stopped 10:32:24 Report given to Pre/Post Procedure Room. 10:32:30 Patient transfered to Pre/Post Procedure Room with Stretcher. 10:32:33 Full Disclosure recording stopped 10:32:33 Procedure ended. 10:32:47 End room use (Document Last) Intervention Summary Intervention Notes Time ActionType Lesion and Equipment Action# Pressure Duration Attributes Used 10:22:15 Inflate Dist RCA Mozec Rx 1 13 00:10 balloon 3.0 x 41 balloon 10:24:35 Place stent Dist RCA Kayenta OTW 2 13 00:10 3.0 x 15 stent Device Usage Item Name Manufacture Quantity Catalog Hospital Part Current Minimal Lot# / Number Charge Number Stock Stock Serial# Code Acist Acist 1 [id number] 678127 494226 429743 20 Syringe Medical Systems Inc Bag Microtek 1 2002S 976917 71782 392332 5 DecInquirly Medical Inc. Medline Cardinal 1 [id number] 374287 66362 020322 5 Cath Pack Health Terumo 5Fr Terumo 1 [id number] 705311 852262 097088 [address] St Suraj 1 377145 169828 052243 210164 30 260cm J .035 wire Acist Hand Acist 1 83027 484483 565975 813084 5 Control Medical Systems Inc Acist Acist 1 92761 605547 307698 774710 5 Manifold Medical Systems Inc Diagnostic Cardinal 1 CT2565 904659 11397 963869 30 Seven Generations Energyity Sonru.com 5Fr Multipack catheter Tegaderm 4 3M 1 1626W 191667 536236 821486 5 x 4 Cordis 5Fr Cardinal 1 526981 5 Pigtail Health Catheter (MP) Cordis 5Fr Cardinal 1 757231 5 JL 4.0 Health Catheter (MP) Cordis 5Fr Cardinal 1 078250 5 3DRC Health Catheter (MP) Medtronic Medtronic 1 [id number] 993173 239673 593329 1 Launcher 5Fr AR 1.0 guide catheter Terumo 6Fr Terumo 1 MEH934 478877 589738 858273 40 Flagstaff Sheath Medtronic Medtronic 1 [id number] 109958 86605 306684 1 Launcher 6Fr AR 1.0 SH guide catheter Jimenez Jimenez 1 [id number] 480213 180986 241579 5 Whisper J Vascular 300cm 0.014 guide wire [facility] 1 TV4583 731466 039059 642746 15 Taggs Medical Inflation Kit [place] 1 27933M 103140 565253 982665 8 Yocha Dehe Eagleye IVUS Catheter Mozec Rx Cardinal 1 [id number] 181246 22491 998726 5 3.0 x 41 Health balloon Moncho OTW Medtronic 1 [id number] 358377 799278 730969 5 [id number] 3.0 x 15 stent Cordis 6Fr Cardinal 1 EX600 582657 571686 970973 10 [facility] Health Signature Audit [place] Stage Time Signature Unsigned Intra-Procedure 05/29/2017 Silvio Oh 10:35:38 AM RT(R) (CV) Signatures Monitor : Silvio Oh RT Signature : Date : Time : [place] [id number] [place] [address]
[2017-05-29] MEDS ORDERED: PROAIR HFA8.5 GM INH (07:33)
[2017-05-29 07:37] VITALS: BP 151/79; Ht 172.7 cm; Wt 77.3 kg
[2017-05-29 07:50] LABS: BASOPHILS 0.6 % (0-2); EOSINOPHILS 3.8 % (0-7); HEMATOCRIT 38.4 % (42.0-54.0); HEMOGLOBIN 12.9 g/dL (13.5-17.5); IMMATURE GRANULOCYTES 0.6 % (0-5); LYMPHOCYTES 36.2 % (15-50); MCHC 33.6 g/dL (31.0-37.0); MCV 95.3 fL (80.0-100.0); MEAN PLATELET VOLUME 8.9 fL (7.4-10.4); MONOCYTES 10.9 % (2-11); NEUTROPHILS 47.9 % (40-80); PLATELET COUNT 263 10x3/uL (130-400); RBC 4.03 10x6/uL (4.20-6.10); RDW 13.9 % (11.5-14.5); WBC 7.8 10x3/uL (4.8-10.8)
[2017-05-29 07:57] LABS: ANION GAP 10.9 mmol/L (8-16); CALCIUM 8.4 mg/dL (8.5-10.1); CARBON DIOXIDE 28.5 mmol/L (21.0-32.0); CREATININE - SERUM 1.8 mg/dL (0.6-1.3); POTASSIUM - SERUM 4.4 mmol/L (3.5-5.1)
--- NOTE | 2017-05-29 10:50 | NUR ---
1045 RECEIVED PT TO ROOM FROM [employer] [facility], SEE ADMIT NOTE. PT IS DROWSY, DENIES ANY C/O. RR EVEN AND UNLABORED ON O2 AT 2 LPM VIA NC. GROIN SITE IS CDI, AREA IS SOFT AND NONTENDER. PEDAL PULSES PALPABLE. FAMILY AT BEDSIDE, CALL LIGHT IS IN REACH.
--- NOTE | 2017-05-29 11:09 | NUR ---
1100 RIGHT GROIN IS STABLE WITH NO BLEEING OR HEMATOMA NOTED. PEDAL PULSES PALPABLE. AT BEDSIDE. PO FLUIDS SERVED. PT DENIES ANY C/O.
--- NOTE | 2017-05-29 11:25 | NUR ---
1125 PT RESTING WITH EYES CLOSED, RR EVEN AND UNLABORED. RIGHT GROIN DRESSING IS CDI, AREA SOFT AND NONTENDER, PEDAL PULSES PALPABLE. AT BEDSIDE.
--- NOTE | 2017-05-29 11:42 | NUR ---
1140 PT DENIES ANY C/O. DRESSING CDI, PEDAL PULSES PALPABLE. VSS. RR EVEN AND UNLABORED, AT BEDSIDE.
--- NOTE | 2017-05-29 12:00 | NUR ---
1200 PT DENIES ANY C/O. PRESTON PO FLUIDS, DRESSING CDI, AT BEDSIDE. VSS.
--- NOTE | 2017-05-29 13:04 | NUR ---
1300 PT PRESTON SANDWICH WITH NO C/O NAUSEA. HAS VOIDED QS USING URINAL. DRESSING RIGHT GROIN IS CDI, AREA SOFT AND NONTENDER. PEDAL PULSES PALPABLE. AT BEDSIDE. DENIES NEEDS AT THIS TIME.
--- NOTE | 2017-05-29 14:02 | NUR ---
1400 DRESSING RIGHT GROIN REMAINS CDI, AREA SOFT AND NONTENDER. HOB ELEVATED 45 DEGREES. PT DENIES ANY C/O AT THIS TIME. AT BEDSIDE.
--- NOTE | 2017-05-29 14:22 | NUR ---
1420 IV DC'D WITH CATH INTACT. REVIEWED DC INSTRUCTIONS WITH PT AND WHO VERBALIZE UNDERSTANDING. PLAVIX PRESCRIPTION, STENT CARD, EXOSEAL CARD AND BOOKLET TO PT. PT INSTRUCTED TO TAKE NORMAL PLAVIX DOSE TONIGHT AND RESUME ALL MEDS AND VERBALIZES UNDERSTANDING. PT DRESSING FOR DC TO HOME. AT BEDSIDE.
--- NOTE | 2017-05-29 14:37 | NUR ---
1430 PT HAS DRESSED FOR DC TO HOME. GROIN DRESSING REMAINS STABLE. PT DENIES ANY C/O. PT ESCORTED TO PRIVATE AUTO VIA WC BY NURSE WITH DRIVING HIM HOME.
== END 2017-05-29 14:30 | disposition home or self-care (01) ==
LOC: D.CATH 07:06
PROVIDERS: Internal Medicine Interventional Cardiology
DX: I25.119 Atherosclerotic heart disease of native coronary artery with unspecified angina pectoris (principal); I10 Essential (primary) hypertension; K21.9 Gastro-esophageal reflux disease without esophagitis; Z95.1 Presence of aortocoronary bypass graft; Z01.812 Encounter for preprocedural laboratory examination
CPT/HCPCS: 93459; 92978; C9600

== ENCOUNTER 2017-06-02 07:24 | Outpatient (CLI) | payer MEDICARE, BC ==
[~2017-06-02] VITALS: Ht 172.7 cm; Wt 77.3 kg
--- NOTE | ~2017-06-02 | OP ---
PATIENT NAME: TRACY WEST MEDICAL RECORD: [id number] :42 LOCATION:D.CAT ADMISSION DATE: SURGEON: LIZZY WILSON MD DATE OF OPERATION: 06/02/2017 PROCEDURES: 1. PTCA stent LAD through the patent HARTLEY graft. 2. Selective coronary and HARTLEY angiography. DESCRIPTION OF PROCEDURE: After informed consent was obtained and after detailed explanation of risks, benefits as well as alternative therapies, the patient elected to proceed with angiogram and angioplasty. The right femoral area was prepped and draped in normal sterile fashion. The right femoral artery was cannulated via modified Seldinger technique with placement of 6-Persian sheath. All catheters were exchanged through this sheath. FINDINGS: The left anterior descending has a 90% stenosis after the HARTLEY graft. This was addressed with a 2.25 x 8 and a 2.25 x 15, both Moncho stents. The result was 0% residual stenosis. OVERALL IMPRESSION: Successful percutaneous transluminal coronary angioplasty stent of the left anterior descending going from 90% initial stenosis to 0% residual stenosis. TRANSINT:[id number] Voice Confirmation ID: [id number] DOCUMENT ID: [id number] LIZZY WILSON MD CC: [id number] DICTATION DATE: 06/02/17 1046 SUPPORT WORKER: 06/02/17 2019 [facility] CLI 06/02/[address] [address]
--- NOTE | ~2017-06-02 | HEMODYNAMI ---
PATIENT:TRACY WEST MEDICAL RECORD: [id number] : 42 LOCATION:D.CAT ADMISSION DATE: 06/02/17 Generatedon:06/02/201710:53 Patient name: TRACY WEST Patient #: [id number] SSN: [id number] : 1940 Date of study: 06/02/2017 Page: Of Hemodynamic Procedure Report Patient Data Patient Demographics Procedure consent was obtained First Name: TRACY Gender: Male Last Name: JENNA : 1940 [facility] Initial: R Age: 77 year(s) Patient #: [id number] Race: SSN: [id number] Additional ID: [id number] Contact details [address]: [address] [place] [address] [employer] State: [place] City: [place] Zip code: [address] Past Medical History History of disease Date Diagnosis Comments CAD Allergies Allergen Reaction Date Comments Reported Other allergy 11/27/2015 TALWIN Other allergy 12/12/2016 TALKOKO, ARITHERMYCIN Other allergy 05/29/2017 Gatito Other allergy 06/02/2017 GATITO Admission Admission Data Admission Date: 06/02/2017 Admission Time: 7:24 Lab Results Lab Result Date: 06/02/2017 Lab Result Time: 0:00 Biochemistry Name Units Result Min Max BUN mg/dl 17 --(---*)-- 7 18 Creatinine mg/dl 1.7 --(----)-* 0.6 1.3 CBC Name Units Result Min Max Hemoglobin g/dl 13.2 -*(----)-- 13.5 17.5 Procedure Procedure Types Cath Procedure PCI Procedure SVG-BMS/KIM Initial Procedure Description Procedure Date Procedure Date: 06/02/2017 Procedure Start Time: 10:32 Procedure End Time: 10:46 Procedure Staff Name Function Magno Roque MD Performing Physician Gabriel Lujan RT Scrub Sharon Riley RN Nurse Caleb Palma RT Monitor Kishore Kaminski RN Global Logistics Manager Procedure Data Cath Procedure Fluoroscopy Diagnostic fluoroscopy Total fluoroscopy Time: 5.5 time: 5.5 min min Diagnostic fluoroscopy Total fluoroscopy dose: 240 dose: 240 mGy mGy Contrast Material Contrast Material Type Amount (ml) Isovue 300 76 Entry Location Entry Primary Successful Side Size Upsize Upsize Entry Closure Succes sful Closure Location (Fr) 1 (Fr) 2 (Fr) Remarks Device Remarks Femoral Left 6 Fr Exoseal artery Short Procedure Complications No complications Procedure Medications Medication Administration Route Dosage Oxygen NRB 2 l/min Heparin Flush Bag added to field 2 bags (1000units/500ml NS) Lidocaine 2% added to field 20 Versed I.V. 1 mg Fentanyl I.V. 50 mcg Versed I.V. 1 mg Fentanyl I.V. 50 mcg Versed I.V. 0.5 mg Fentanyl I.V. 50 mcg Heparin Bolus I.V. 4000 units Hemodynamics Rest HGB: 13.2 (g/dl) Heart Rate: 87 (bpm) Snapshots Pre Cath Intra NCS Post Cath Vital Signs Time Heart Resp SPO2 NIBP (mmHg) Rhythm Pain Sedation Rate (ipm) (%) Status Level (bpm) 10:09:27 87 14 98 156/82(120) NSR 0 (11) 10(A) , No pain 10:13:39 85 18 100 155/88(122) NSR 0 (11) 10(A) , No pain 10:17:57 85 16 100 154/84(116) NSR 0 (11) 10(A) , No pain 10:22:15 83 16 100 139/76(115) NSR 0 (11) 10(A) , No pain 10:26:29 85 16 99 129/76(102) NSR 0 (11) 10(A) , No pain 10:30:35 84 16 96 126/75(113) NSR 0 (11) 10(A) , No pain 10:34:45 89 16 98 120/69(100) NSR 0 (11) 9(A) , No pain 10:38:53 92 16 98 127/70(97) NSR 0 (11) 9(A) , No pain 10:42:59 91 16 99 147/87(116) NSR 0 (11) 9(A) , No pain 10:45:57 93 16 99 139/83(113) NSR 0 (11) 9(A) , No pain Medications Time Medication Route Dose Verified Delivered Reason Notes Effectiveness by by 10:08:29 Oxygen NRB 2 Magno Palaciosca Per physician l/min Jude Riley RN 10:08:35 Heparin Flush added 2 Magno Kiran used for Bag to bags Jude Roque MD procedure (1000units/500ml field NS) 10:08:42 Lidocaine 2% added 20ml Magno Kiran used for to vial Jude Roque MD procedure field 10:27:00 Versed I.V. 1 mg Magno Sharon for sedation Jude Riley RN 10:27:15 Fentanyl I.V. 50 Magno Sharon for sedation mcg Jude Riley RN 10:29:00 Versed I.V. 1 mg Magno Sharon for sedation Jude Riley RN 10:29:15 Fentanyl I.V. 50 aMgno Sharon for sedation mcg Jude Riley RN 10:31:41 Versed I.V. 0.5 Magno Sharon for sedation mg Jude Riley RN 10:31:45 Fentanyl I.V. 50 Magno Sharon for sedation mcg Jude Riley RN 10:31:52 Heparin Bolus I.V. 4000 Magno Sharon for dose units Jude Riley RN anticoagulation verified [facility] roque Procedure Log Time Note 9:57:51 ACC Patient presents with Stable Angina CCS Anginal Class 2--Slight limitation of ordinary activity. 9:57:53 Diagnostic Cath status Elective 10:00:22 Kishore Kaminski RN sent for patient. Start room use. 10:08:21 Vital chart was started 10:08:29 Oxygen 2 l/min NRB was administered by Sharon Riley RN; Per physician; 10:08:35 Heparin Flush Bag (1000units/500ml NS) 2 bags added to field was administered by Magno Roque MD; used for procedure; 10:08:42 Lidocaine 2% 20ml vial added to field was administered by Magno Roque MD; used for procedure; 10:12:29 Time tracking: Regular hours 10:12:33 Plan of Care:Hemodynamics will remain stable., Cardiac rhythm will remain stable., Comfort level will be maintained., Respiratory function will remain adequate., Patient/ family verbilizes understanding of procedure., Procedure tolerated without complication., Recovers from procedure without complications.. 10:12:40 Patient received from Pre/Post Procedure Room to CCL 2 Alert and oriented. Tansferred to table in Supine position. 10:12:41 Warm blankets applied, and brad hugger turned on for patient comfort. 10:12:41 Correct patient and procedure confirmed by team. 10:12:43 Signed procedure consent form obtained from patient. 10:12:44 ECG and BP/O2 sat monitors applied to patient. 10:12:45 Baseline sample Acquired. 10:13:07 Full Disclosure recording started 10:13:18 H&P Date Dictated: 06/02/2017 Within 30 days and on chart.. 10:13:19 Pre-procedure instructions explained to patient. 10:13:19 Pre-op teaching completed and patient verbalized understanding. 10:13:20 Family in waiting room. 10:13:22 Patient NPO since Midnight. 10:13:37 Patient allergic to Other allergyTALWIN 10:13:39 Is the patient allergic to Iodine/contrast media? No. 10:13:45 Is patient on blood thinner?Yes 10:13:48 ACC The patient was administered the following blood thiners within the last 24 hours: ACCPlavix 10:13:57 Patient diabetic? No. 10:14:00 If diabetic: On Metformin? No 10:14:01 ----Pre-sedation anethsthesia assessment.---- 10:14:03 Previous problem with sedation/anesthesia? No ? 10:14:04 Snore? Yes 10:14:05 Sleep apnea? No 10:14:06 Deviated septum? No 10:14:08 Opens mouth fully? Yes 10:14:09 Sticks out tongue? Yes 10:14:13 Airway obstruction? Yes COPD 10:14:17 Dentures? Yes OUT 10:14:21 Pre procedure: right dorsailis pedis pulse 1+ Palpable, but thready & weak; easily obliterated 10:14:24 Patient pain scale 0/10 ?. 10:21:21 IV patent on arrival in left wrist with 0.9% NaCl at 10ml/hr. 10::43 Lab Result : BUN 17 mg/dl 10:21:43 Lab Result : Hemoglobin 13.2 g/dl 10:: Lab Result : Creatinine 1.7 mg/dl 10::48 Lab results completed and on chart. 10::54 Left groin area was prepped with chlora-prep and draped in sterile fashion 10::55 Alarms reviewed by R. N. 10:: Sharps counted by scrub and verified by R.N. : --------ALL STOP TIME OUT------ :: Final Timeout: patient, procedure, and site verified with staff and physician. All members of the team are in agreement. 10:27:00 Versed 1 mg I.V. was administered by Sharon Riley RN; for sedation; 10::02 Left groin site verified by team. 10:27:05 Physical assessment completed. ASA score P 2 - A patient with mild systemic disease as per Magno Roque MD. 10:27:08 Sedation plan: IV Moderate Sedation Versed, Fentanyl 10::15 Fentanyl 50 mcg I.V. was administered by Sharon Riley RN; for sedation; 10:29:00 Versed 1 mg I.V. was administered by Sharon Riley RN; for sedation; 10:29:15 Fentanyl 50 mcg I.V. was administered by Sharon Riley RN; for sedation; 10:31:38 Use device set Femoral PCI 10:31:38 Acist Syringe opened to sterile field. 10:31:39 Acist Hand Control opened to sterile field. 10::39 Bag Decanter opened to sterile field. 10:31:40 Medline Cath Pack opened to sterile field. 10:31:40 Terumo 6Fr [place] Sheath opened to sterile field. 10:31:40 St Suraj 260cm J .035 wire opened to sterile field. 10:31:41 Versed 0.5 mg I.V. was administered by Sharon Riley RN; for sedation; 10:31:41 Merit BasixCompak Inflation Kit opened to sterile field. 10:31:43 Acist Manifold opened to sterile field. 10:31:43 Tegaderm 4 x 4 opened to sterile field. 10:31:45 Fentanyl 50 mcg I.V. was administered by Sharon Riley RN; for sedation; 10:31:49 Medtronic Launcher 6Fr RAVINDER 90 guide catheter opened to sterile field. 10:31:52 Heparin Bolus 4000 units I.V. was administered by Sharon Riley RN; for anticoagulation; dose verified wtih dr roque 10:31:54 Jimenez Whisper J 300cm 0.014 guide wire opened to sterile field. 10:32:07 Procedure started. 10:32:24 Local anesthetic to left femerol artery with Lidocaine 2% by Magno Roque MD.INITIAL ACCESS ONLY 10:32:31 A 6 Fr Short sheath was inserted into the Left Femoral artery 10:32:36 ACC Pre-intervention XU Flow is 3. 10:33:08 Zero performed for pressure channel P1 10:34:06 Study PCI Site: HARTLEY Graft mLAD has 90% stenosis. 10:34:30 6 Fr RAVINDER 90 guide catheter was inserted over the wire 10:34:33 WHISPER wire advanced. 10:35:59 Inflation number: [address] [employer] [place] 2.0 X 15 balloon was prepped and advanced across the HARTLEY -> Mid LAD, then inflated to 11 SANDRA for 0:11 (min:sec). 10:36:10 Balloon removed over the wire. 10:38:19 Inflation Number: 2 A Moncho OTW 2.25 x 18 stent was prepped and advanced across the HARTLEY -> Mid LAD. The stent was deployed at 11 SANDRA for 0:10 (min:sec). 10:38:21 Stent catheter was removed intact over wire. 10:39:37 Cordis 6Fr Exoseal opened to sterile field. 10:40:34 Inflation Number: 3 A Moncho OTW 2.25 x 15 stent was prepped and advanced across the HARTLEY -> Mid LAD. The stent was deployed at 11 SANDRA for 0:10 (min:sec). 10:40:45 Inflation number: 4 The stent balloon was then re-inflated across the HARTLEY -> Mid LAD to 15 SANDRA for 0:09 (min:sec). 10:42:21 Stent catheter was removed intact over wire. 10:42:22 Wire removed. 10:42:22 Guide catheter removed. 10:42:48 Sheath removed intact; hemostasis achieved with Exoseal to the Left Femoral artery. 10:42:52 Procedure ended.(Physican Out) 10:43:05 Fluoroscopy time 05.50 minutes. 10:43:09 Flurop Dose total: 240 10:43:09 Fluoroscopy dose: 240 mGy 10:43:13 Contrast amount:Isovue 300 76ml. 10:43:14 Sharps counted by scrub and verified by R.N. 10:43:15 Insertion/operative site no bleeding no hematoma. 10:43:18 Post-op/insertion site Left Femoral artery dressed using a 4 x 4 and Tegaderm. 10:43:22 Post left femerol artery:stable 10:43:24 Post Procedure Pulses reassessed and unchanged 10:43:27 Post procedure rhythm: sinus rhythm 10:43:34 Post procedure instruction explained to patient.Patient verbalizes understanding. 10:44:48 Procedure type changed to Cath procedure, PCI procedure, SVG-BMS/KIM Initial 10:45:46 Procedure and supply charges have been captured, reviewed, submitted and are correct. 10:45:50 Procedure Complication : No complications 10:45:52 Vital chart was stopped 10:45:53 See physician's report for complete and final results. 10:45:57 Report given to Pre/Post Procedure Room. 10:46:02 Patient transfered to Pre/Post Procedure Room with Stretcher. 10:46:04 Procedure ended. 10:46:04 Full Disclosure recording stopped 10:46:09 End room use (Document Last) Intervention Summary Intervention Notes Time ActionType Lesion and Equipment Action# Pressure Duration Attributes Used 10:35:59 Inflate HARTLEY -> Mid Troutman 1 11 00:[address] 2.0 X 15 balloon 10:38:19 Place stent HARTLEY -> Mid Moncho OTW 2 11 00:10 LAD 2.25 x 18 stent 10:40:34 Place stent HARTLEY -> Mid Moncho OTW 3 11 00:10 LAD 2.25 x 15 stent 10:40:45 Reinflate HARTLEY -> Mid Moncho OTW 4 15 00:09 stent LAD 2.25 x 15 balloon stent Device Usage Item Name Manufacture Quantity Catalog Number Hospital Part Current Mini mal Lot# / Charge Number Stock Stock Serial# Code Acist Acist 1 [id number] 997778 667741 [id number] 20 [employer] Ltd. Acist Hand Acist 1 30224 806303 872834 889127 5 Control Medical Systems Inc Bag Microtek 1 2002S 056789 02763 273274 5 Decanter Medical Inc. Medline Cardinal 1 [id number] 508510 56059 546589 5 Cath Pack Health Terumo 6Fr Terumo 1 [id number] 348171 669304 141427 [address] Suraj 1 [id number] 385259 688624 190637 30 260cm J .035 wire Merit Merit 1 [id number] 909288 811317 217571 15 27 bards Medical Inflation Kit Acist Acist 1 28399 885735 630008 531182 5 GreenTec[employer] Inc Tegaderm 4 3M 1 1626W 672322 367043 128720 5 x 4 Medtronic Medtronic 1 [id number] 639971 58127 571736 1 Launcher 6Fr RAVINDER 90 guide catheter Jimenez Jimenez 1 [id number] 761702 124800 571622 5 Whisper J Vascular 300cm 0.014 guide wire Troutman Sci Troutman 1 [id number] 727163 853658 292285 1 [id number] Bacterioscan 2.0 X 15 balloon Bumpass OTW Medtronic 1 [id number] 252816 47937 656890 5 [id number] 2.25 x 18 stent Cordis 6Fr Cardinal 1 [id number] 270769 387733 829477 10 [employer] Health Moncho OTW Medtronic 1 [id number] 406617 71966 102986 5 [id number] 2.25 x 15 stent Signature Audit [place] Stage Time Signature Unsigned Intra-Procedure 06/02/2017 Caleb Palma 10:53:43 AM RT(R) Signatures Monitor : Caleb Palma RT Signature : Date : Time : [place] [id number] [place] [address]
[~2017-06-02 07:24] MED LIST changes: +PROAIR HFA8.5 GM INH
[2017-06-02 08:05] VITALS: BP 168/80; Ht 172.7 cm; Wt 77.3 kg
[2017-06-02 08:20] LABS: BASOPHILS 0.6 % (0-2); EOSINOPHILS 2.8 % (0-7); HEMATOCRIT 38.5 % (42.0-54.0); HEMOGLOBIN 13.2 g/dL (13.5-17.5); IMMATURE GRANULOCYTES 0.6 % (0-5); LYMPHOCYTES 30.3 % (15-50); MCH 32.6 pg (26.0-34.0); MCHC 34.3 g/dL (31.0-37.0); MCV 95.1 fL (80.0-100.0); MEAN PLATELET VOLUME 8.7 fL (7.4-10.4); MONOCYTES 11.8 % (2-11); NEUTROPHILS 53.9 % (40-80); PLATELET COUNT 257 10x3/uL (130-400); RBC 4.05 10x6/uL (4.20-6.10); RDW 13.7 % (11.5-14.5); WBC 7.1 10x3/uL (4.8-10.8)
[2017-06-02 08:52] LABS: ANION GAP 11.1 mmol/L (8-16); CALCIUM 8.5 mg/dL (8.5-10.1); CARBON DIOXIDE 30.8 mmol/L (21.0-32.0); CREATININE - SERUM 1.7 mg/dL (0.6-1.3); POTASSIUM - SERUM 3.9 mmol/L (3.5-5.1)
--- NOTE | 2017-06-02 11:13 | NUR ---
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 PT VERY DROWSY, AWAKENS TO VERBAL STIMULI. DENIES ANY C/O. DRESSING TO LEFT GROIN IS CDI, AREA IS SOFT AND NONTENDER. PEDAL PULSES PALPABLE. AT BEDSIDE. RR EVEN AND UNLABORED. CALL LIGHT IN REACH, INSTRUCTED PT TO CALL FOR NEEDS.
--- NOTE | 2017-06-02 11:21 | NUR ---
1120- GROIN DRESSING REMAINS CDI, AREA IS SOFT AND NONTENDER. PEDAL PULSES PALPABLE. PO FLUIDS SERVED. PT DENIES ANY C/O. AT BEDSIDE.
--- NOTE | 2017-06-02 11:44 | NUR ---
1140 PRESTON PO FLUIDS WITH NO C/O NAUSEA. DRESSING TO RIGHT GROIN IS CDI, AREA IS SOFT AND NONTENDER. PEDAL PULSES PALPABLE. AT BEDSIDE.
--- NOTE | 2017-06-02 12:30 | NUR ---
1215 PT VOIDED 400 CC CLEAR YELOW URINE USING URINAL. DRESSING TO LEFT GROIN IS CDI, AREA IS SOFT AND NONTENDER. PEDAL PULSES PALPABLE. PRESTON PO FLUIDS WITH NO C/O. AT BEDSIDE, CALL LIGHT IN REACH.
--- NOTE | 2017-06-02 13:15 | NUR ---
1315 DRESSING TO LEFT GROIN IS CDI, AREA IS SOFT AND NONTENDER. PT DENIES ANY C/O. AT BEDSIDE. CALL LIGHT IN REACH.
--- NOTE | 2017-06-02 14:01 | NUR ---
1400 GROIN STABLE WITH NO BLEEDING OR HEMATOMA NOTED. VSS. PT RESTING WITH EYES CLOSED. CALL LIGHT IN REACH, AT BEDSIDE.
--- NOTE | 2017-06-02 15:32 | NUR ---
1445 HOB ELEVATED TO 45 DEGRESS, PT DENIES ANY C/O. DRESSING TO LEFT GROIN IS CDI, AREA SOFT AND NONTENDER. AT BEDSIDE. CALL LIGHT IN REACH.
--- NOTE | 2017-06-02 15:33 | NUR ---
1515 IV DC'D WITH CATH INTACT. REVIEWED DC INSTRUCTIONS WITH PT WHO VERBALIZES UNDERSTANDING. PT DRESSING FOR DC TO HOME. 1530 GROIN REMAINS STABLE AFTER AMBULATION. PT ESCORTED TO PRIVATE AUTO VIA WC BY NURSE WITH DRIVING HIM HOME.
== END 2017-06-02 15:30 | disposition home or self-care (01) ==
LOC: D.CATH 07:24
PROVIDERS: Internal Medicine Interventional Cardiology
DX: I25.119 Atherosclerotic heart disease of native coronary artery with unspecified angina pectoris (principal); Z01.812 Encounter for preprocedural laboratory examination

== ENCOUNTER 2017-07-14 12:57 | Emergency (ER) | payer MEDICARE, BC ==
[2017-06-02 08:05] VITALS: BMI 25.9
== END 2017-07-14 16:40 | disposition home or self-care (01) ==
LOC: D.ER 12:57
DX: K56.7 Ileus, unspecified (principal); M54.5 Low back pain; M62.838 Other muscle spasm; I25.10 Atherosclerotic heart disease of native coronary artery without angina pectoris

== ENCOUNTER → 2017-12-22 10:06 | Outpatient (CLI) | payer MEDICARE, BC ==
[2017-06-02 08:05] VITALS: BMI 25.9
[~2017-12-22 10:06] MED LIST changes: +MUCINEX DM ER1 EAC1 PO; +OXYCONTIN15 MG PO; +TENORMIN50 MG PO
== END | disposition home or self-care (01) ==
LOC: D.RT 10:00
DX: J45.909 Unspecified asthma, uncomplicated (principal)

== ENCOUNTER 2018-01-08 08:18 | Outpatient (CLI) | payer MEDICARE, BC ==
[~2018-01-08] VITALS: Ht 172.7 cm; Wt 84.1 kg
--- NOTE | ~2018-01-08 | OP ---
PATIENT NAME: TRACY WEST MEDICAL RECORD: [id number] :42 LOCATION:D.CAT ADMISSION DATE: SURGEON: LIZZY WILSON MD DATE OF OPERATION: 01/08/2018 PROCEDURES: 1. PTCA stent RCA. 2. Left heart catheterization. 3. Selective coronary angiography. 4. Left ventriculogram. 5. Vein graft angiography. 6. HARTLEY angiography. INDICATION: Angina and coronary artery disease. PROCEDURE IN DETAIL: After informed consent was obtained and after detailed explanation of risks, benefits as well as alternative therapies, the patient elected to proceed with angiogram and angioplasty. The right femoral area was prepped and draped in normal sterile fashion. The right femoral artery was cannulated via modified Seldinger technique with placement of 6-Macedonian sheath. All catheters exchanged through this sheath. FINDINGS: The left ventriculogram was performed in standard 30-degree IBRAHIM view, reveals mild global hypokinesis throughout all segments. Overall ejection fraction 40%. SELECTIVE CORONARY ANGIOGRAPHY: 1. Left main has a previously placed stent with up to 70% in-stent restenosis; however, this only feeds the septal branch. 2. Left anterior descending is totally occluded. 3. HARTLEY to the LAD is patent. There is previously placed stent in the distal LAD with 50% in-stent restenosis. 4. The left circumflex is totally occluded. 5. Vein graft to the ramus intermedius is widely patent. The ramus intermedius itself was widely patent as well. 6. Vein graft to the circumflex first obtuse marginal is widely patent. Distal obtuse marginal small, diffusely diseased, but widely patent. 7. Right coronary artery has previously placed stent. There is long area of 70% to 80% stenosis before and after the previously placed stent. PTCA STENT OF THE RCA: Stents used were 3.0 x 38, 3.0 x 38, and 2.5 x 12 all Moncho stents. Result was 0% residual stenosis. OVERALL IMPRESSION: Successful percutaneous transluminal coronary angioplasty stent of the RCA going from long areas of 70% to 80% initial stenosis to 0% residual stenosis. TRANSINT:[id number] Voice Confirmation ID: [id number] DOCUMENT ID: [id number] OPERATIVE REPORT [id number] TRACY WEST LIZZY WILSON MD at 2884 CC: [id number] DICTATION DATE: 01/08/18 1158 LOADMASTER: 01/08/18 1214 DEP CLI 01/08/18 [place] [id number] [place] [id number]
--- NOTE | ~2018-01-08 | HEMODYNAMI ---
PATIENT:TRACY WEST MEDICAL RECORD: [id number] : 42 LOCATION:D.CAT ADMISSION DATE: 01/08/18 Generatedon:01/08/201811:58 Patient name: TRACY WEST Patient #: [id number] SSN: [id number] : 1940 Date of study: 01/08/2018 Page: Of Hemodynamic Procedure Report Patient Data Patient Demographics Procedure consent was obtained First Name: TRACY Gender: Male Last Name: JENNA : 1940 [facility] Initial: R Age: 77 year(s) Patient #: [id number] Race: SSN: [id number] Additional ID: [id number] Contact details Address: [address] [place] [address] [place] State: [place] City: [place] Zip code: [address] Past Medical History History of disease Date Diagnosis Comments CAD Allergies Allergen Reaction Date Comments Reported Other allergy 11/27/2015 TALWIN Other allergy 12/12/2016 TALKOKO, ARITHERMYCIN Other allergy 05/29/2017 Gatito Other allergy 06/02/2017 GATITO Admission Admission Data Admission Date: 01/08/2018 Admission Time: 8:18 Procedure Procedure Types Cath Procedure Diagnostic Procedure LHC LHC w/Coronaries w/Grafts Sedation Charges Moderate Sedation up to 30 minutes PCI Procedure Coronary Stent Coronary Stent Initial Procedure Description Procedure Date Procedure Date: 01/08/2018 Procedure Start Time: 11:28 Procedure End Time: 11:57 Procedure Staff Name Function Magno Roque MD Performing Physician Kishore Kaminski RN Nurse Kelle Lund RT Monitor Gabriel Lujan RT Scrub Procedure Data Cath Procedure Fluoroscopy Diagnostic fluoroscopy Total fluoroscopy Time: 7.3 time: 7.3 min min Diagnostic fluoroscopy Total fluoroscopy dose: 429 dose: 429 mGy mGy Contrast Material Contrast Material Type Amount (ml) Isovue 300 177 Entry Location Entry Primary Successful Side Size Upsize Upsize Entry Closure Succes sful Closure Location (Fr) 1 (Fr) 2 (Fr) Remarks Device Remarks Femoral Right 5 Fr 6 Fr Exoseal artery Short Estimated blood loss: 10 ml Diagnostic catheters Device Type Used For End Catheter Placement MULTIPACK Pigtail 5 Fr LV Angiography catheter MULTIPACK JL 4.0 5Fr Left Coronary catheter Angiography MULTIPACK 3DRC 5Fr Internal mammary catheter arteriography MULTIPACK 3DRC 5Fr Right Coronary catheter Angiography DIAGNOSTIC AR 2 MOD 5 Fr SVG Angiography catheter ([id number]) Procedure Complications No complications Procedure Medications Medication Administration Route Dosage Oxygen NC 2 l/min Heparin Flush Bag added to field 2 bags (1000units/500ml NS) 0.9% NaCl I.V. 100 ml/hr Fentanyl I.V. 50 mcg Versed I.V. 1 mg Fentanyl I.V. 50 mcg Versed I.V. 1 mg Fentanyl I.V. 50 mcg Versed I.V. 1 mg Fentanyl I.V. 50 mcg Versed I.V. 1 mg Heparin Bolus I.V. 4000 units Fentanyl I.V. 50 mcg Fentanyl I.V. 50 mcg Nitroglycerin IC/IA I.C. 200 mcg Nitroglycerin IC/IA I.C. 200 mcg Fentanyl I.V. 50 mcg Fentanyl I.V. 50 mcg Hemodynamics Rest Heart Rate: 69 (bpm) Snapshots Pre Cath Intra NCS Post Cath Vital Signs Time Heart Resp SPO2 etCO2 NIBP (mmHg) Rhythm Pain Sedation Rate (ipm) (%) (mmHg) Status Level (bpm) 10:52:01 69 16 98 0 141/76(119) NSR 0 (11) 10(A) , No pain 10:56:23 69 17 100 30.5 141/71(115) NSR 0 (11) 10(A) , No pain 11:00:41 66 16 99 32 133/72(106) NSR 0 (11) 10(A) , No pain 11:05:01 65 16 97 30.5 118/63(104) NSR 0 (11) 10(A) , No pain 11:09:19 67 16 97 36.5 136/66(109) NSR 0 (11) 10(A) , No pain 11:13:35 67 16 98 42.5 135/69(107) NSR 0 (11) 10(A) , No pain 11:17:57 68 15 97 22.3 133/66(103) NSR 0 (11) 10(A) , No pain 11:22:16 70 16 98 25.3 127/70(106) NSR 0 (11) 10(A) , No pain 11:26:40 70 16 98 20.8 137/55(98) NSR 0 (11) 10(A) , No pain 11:30:48 69 16 95 36.5 118/73(96) NSR 0 (11) 10(A) , No pain 11:35:04 68 14 97 39.4 119/67(94) NSR 0 (11) 10(A) , No pain 11:39:20 71 14 98 24.5 135/66(102) NSR 0 (11) 10(A) , No pain 11:43:34 67 16 98 31.2 123/68(99) NSR 0 (11) 10(A) , No pain 11:47:46 74 14 98 29 125/71(97) NSR 0 (11) 10(A) , No pain 11:51:56 71 16 97 36.5 121/66(88) NSR 0 (11) 10(A) , No pain 11:56:02 76 15 95 38 104/69(85) NSR 0 (11) 10(A) , No pain Medications Time Medication Route Dose Verified Delivered Reason Notes Effectiveness by by 10:54:16 Oxygen NC 2 Magno Novak Per physician l/min Jude Kaminski RN 10:54:25 Heparin Flush added 2 Magno Garciay used for Bag to bags Jude Kaminski lead sprinkler (1000units/500ml field NS) 10:54:35 0.9% NaCl I.V. 100 Magno Novak Per physician ml/hr Jude Kaminski RN 11:20:15 Fentanyl I.V. 50 Magno Novak for sedation mcg Jude Kaminski RN 11:20:21 Versed I.V. 1 mg Magno Novak for sedation Jude Kaminski RN 11:23:37 Fentanyl I.V. 50 Magno Garciay for sedation mcg Jude Kaminski RN 11:23:40 Versed I.V. 1 mg Magno Novak for sedation Jude Kaminski RN 11:27:21 Fentanyl I.V. 50 Magno Garciay for sedation mcg Jude Kaminski RN 11:27:36 Versed I.V. 1 mg Magno Novak for sedation Jude Kaminski RN 11:36:41 Fentanyl I.V. 50 Magno Novak for sedation mcg Jude Kaminski RN 11:36:46 Versed I.V. 1 mg Magno Novak for sedation Jude Kaminski RN 11:36:56 Heparin Bolus I.V. 4000 Magno Kishore for units Jude Kaminski RN anticoagulation 11:39:46 Fentanyl I.V. 50 Magno Novak for sedation mcg Jude Kaminski RN 11:42:28 Fentanyl I.V. 50 Magno Novak for sedation mcg Jude Kaminski RN 11:48:01 Nitroglycerin I.C. 200 Magno Kiran for IC/IA mcg Jude Roque MD vasodilation 11:49:19 Nitroglycerin I.C. 200 Magno Kiran for IC/IA mcg Jude Roque MD vasodilation 11:51:54 Fentanyl I.V. 50 Magno Kiran for sedation sue Roque MD 11:52:42 Fentanyl I.V. 50 Magno Kiran for sedation mcg Jude Roque MD Procedure Log Time Note 10:30:03 Gabriel Lujan RT(R) sent for patient. Start room use. 10:32:04 Time tracking: Regular hours 10:32:07 Plan of Care:Hemodynamics will remain stable., Cardiac rhythm will remain stable., Comfort level will be maintained., Respiratory function will remain adequate., Patient/ family verbilizes understanding of procedure., Procedure tolerated without complication., Recovers from procedure without complications.. 10:43:19 Patient received from Pre/Post Procedure Room to CCL 3 Alert and oriented. Tansferred to table in Supine position. 10:43:22 Warm blankets applied, and brad hugger turned on for patient comfort. 10:43:22 Correct patient and procedure confirmed by team. 10:43:23 Signed procedure consent form obtained from patient. 10:43:24 ECG and BP/O2 sat monitors applied to patient. 10:43:25 Full Disclosure recording started 10:50:43 Vital chart was started 10:51:43 Rhythm: sinus rhythm 10:51:57 Patient in LBBB 10:52:06 H&P Date Dictated: 01/05/2018 Within 30 days and on chart., H&P Addendum completed by physician on day of procedure. (MUST COMPLETE FOR ALL OUTPATIENTS). 10:52:08 Pre-procedure instructions explained to patient. 10:52:08 Pre-op teaching completed and patient verbalized understanding. 10:52:09 Family in waiting room. 10:52:11 Patient NPO since Midnight. 10:52:47 Is the patient allergic to Iodine/contrast media? No. 10:53:02 Is patient on blood thinner?Yes 10:53:05 ACC The patient was administered the following blood thiners within the last 24 hours: ACCAspirin, ACCPlavix 10:53:07 Patient diabetic? No. 10:53:10 Previous problem with sedation/anesthesia? No ? 10:53:11 Snore? Yes 10:53:12 Sleep apnea? No 10:53:12 Deviated septum? No 10:53:13 Opens mouth fully? Yes 10:53:13 Sticks out tongue? Yes 10:53:15 Airway obstruction? No ? 10:53:16 Dentures? Yes Out 10:53:19 Pre procedure: right dorsailis pedis pulse 2+ Normal; easily identifiable; not easily obliterated 10:53:23 Patient pain scale 0/10 ?. 10:53:26 IV patent on arrival in left hand with 0.9% NaCl at [facility]. 10:53:29 Lab results completed and on chart. 10:53:32 Right groin area was prepped with chlora-prep and draped in sterile fashion 10:53:33 Alarms reviewed by R. N. 10:53:34 Sharps counted by scrub and verified by R.N. 10:53:38 Use device set Femoral Dx 10:53:39 ACIST Syringe (10339) opened to sterile field. 10:53:39 Bag Decanter (2002S) opened to sterile field. 10:53:40 Medline Cath Pack ([id number]) opened to sterile field. 10:53:40 SHEATH 5FR [place] (VKH371) opened to sterile field. 10:53:41 DIAGNOSTIC WIRE .035 260cm J wire (987201) opened to sterile field. 10:53:43 ACIST Hand Control (31574) opened to sterile field. 10:53:43 ACIST Manifold (99324) opened to sterile field. 10:53:44 DIAGNOSTIC Multipack 5Fr catheter set ([id number]) opened to sterile field. 10:53:45 Tegaderm 4 x 4 (1626W) opened to sterile field. 10:53:46 PERCUTANEOUS ENTRY 19GA needle opened to sterile field. 10:54:16 Oxygen 2 l/min NC was administered by Kishore Kaminski RN; Per physician; 10:54:25 Heparin Flush Bag (1000units/500ml NS) 2 bags added to field was administered by Kishore Kaminski RN; used for procedure; 10:54:35 0.9% NaCl 100 ml/hr I.V. was administered by Kishore Kaminski RN; Per physician; 10:56:29 Baseline sample Acquired. 11:01:51 Zero performed for pressure channel P1 11:19:49 Final Timeout: patient, procedure, and site verified with staff and physician. All members of the team are in agreement. 11:19:52 Right groin site verified by team. 11:19:55 Physical assessment completed. ASA score P 2 - A patient with mild systemic disease as per Magno Roque MD. 11:19:58 Sedation plan: IV Moderate Sedation Medication:Versed, Fentanyl 11:20:15 Fentanyl 50 mcg I.V. was administered by Kishore Kaminski RN; for sedation; 11:20:21 Versed 1 mg I.V. was administered by Kishore Kaminski RN; for sedation; 11:23:37 Fentanyl 50 mcg I.V. was administered by Kishore Kaminski RN; for sedation; 11:23:40 Versed 1 mg I.V. was administered by Kishore Kaminski RN; for sedation; 11:27:21 Fentanyl 50 mcg I.V. was administered by Kishore Kaminski RN; for sedation; 11:27:36 Versed 1 mg I.V. was administered by Kishore Kaminski RN; for sedation; 11:28:34 Procedure started. 11:28:38 Local anesthetic to right femoral artery with Lidocaine 2% by Magno Roque MD.INITIAL ACCESS ONLY 11:29:36 A 5 Fr sheath was inserted into the Right Femoral artery 11:30:38 A MULTIPACK Pigtail 5 Fr catheter was advanced over the wire and used for LV Angiography. 11:30:40 LV gram done using IBRAHIM 11:30:45 EF : 40 % 11:30:48 Injector settings: Ml/sec: 10, Volume: 20, 11:30:49 Catheter removed. 11:30:56 A MULTIPACK JL 4.0 5Fr catheter was advanced over the wire and used for Left Coronary Angiography. 11:31:28 Catheter removed. 11:31:42 A MULTIPACK 3DRC 5Fr catheter was advanced over the wire and used for Internal mammary arteriography. 11:31:48 Use device set [facility] PCI 11:31:55 INFLATOR Merit BasixCompak (VJ9279) opened to sterile field. 11:31:56 SHEATH 6FR [place] (JLM750) opened to sterile field. 11:33:15 A MULTIPACK 3DRC 5Fr catheter was advanced over the wire and used for Right Coronary Angiography. 11:33:38 Catheter removed. 11:34:00 A DIAGNOSTIC AR 2 MOD 5 Fr catheter ([id number]) was advanced over the wire and used for SVG Angiography. 11:34:13 CHOICE PT Extra Support J 300cm guide wire ([id number]) opened to sterile field. 11:35:44 Catheter removed. 11:36:41 Fentanyl 50 mcg I.V. was administered by Kishore Kaminski RN; for sedation; 11:36:46 Versed 1 mg I.V. was administered by Kishore Kaminski RN; for sedation; 11:36:56 Heparin Bolus 4000 units I.V. was administered by Kishore Kaminski RN; for anticoagulation; 11:37:39 Sheath upsized to a 6 Fr Short. 11:37:51 6 Fr AR 2.0 SH guide catheter was inserted over the wire 11:39:03 Choice PT ES wire advanced. 11:39:46 Fentanyl 50 mcg I.V. was administered by Kishore Kaminski RN; for sedation; 11:40:12 Inflation number: 1 A EUPHORA 3.0 x 30 Balloon ([id number]) was prepped and advanced across the Mid RCA, then inflated to 13 SANDRA for 0:08 (min:sec). 11:40:26 Balloon removed over the wire. 11:42:28 Fentanyl 50 mcg I.V. was administered by Kishore Kaminski RN; for sedation; 11:42:30 Inflation Number: 2 A ANTONIO OTW 3.0 x 38 stent ([id number]) was prepped and advanced across the Mid RCA. The stent was deployed at 13 SANDRA for 0:06 (min:sec). 11:43:20 Stent catheter was removed intact over wire. 11:45:18 Inflation Number: 3 A ANTONIO OTW 3.0 x 38 stent ([id number]) was prepped and advanced across the Mid RCA. The stent was deployed at 13 SANDRA for 0:05 (min:sec). 11:48:01 Nitroglycerin IC/IA 200 mcg I.C. was administered by Magno Roque MD; for vasodilation; 11:49:19 Nitroglycerin IC/IA 200 mcg I.C. was administered by Magno Roque MD; for vasodilation; 11:50:30 Stent catheter was removed intact over wire. 11:51:54 Fentanyl 50 mcg I.V. was administered by Magno Roque MD; for sedation; 11:51:56 Inflation Number: 1 A ANTONIO OTW 2.5 x 12 stent ([id number]) was prepped and advanced across the Dist RCA. The stent was deployed at 13 SANDRA for 0:09 (min:sec). 11:52:42 Fentanyl 50 mcg I.V. was administered by Magno Roque MD; for sedation; 11:52:44 Stent catheter was removed intact over wire. 11:52:47 Wire removed. 11:52:49 Guide catheter removed. 11:53:00 EXOSEAL 6Fr (EX600) opened to sterile field. 11:53:09 Sheath removed intact; hemostasis achieved with Exoseal to the Right Femoral artery. 11:53:11 Procedure ended.(Physican Out) 11:54:20 Fluoroscopy time 07.30 minutes. 11:54:25 Flurop Dose total: 429 11:54:25 Fluoroscopy dose: 429 mGy 11:54:29 Contrast amount:Isovue 300 177ml. 11:54:30 Sharps counted by scrub and verified by R.N. 11:54:33 Insertion/operative site no bleeding no hematoma. 11:54:35 Post-op/insertion site Right Femoral artery dressed using a 4 x 4 and Tegaderm. 11:54:38 Post right femoral artery:stable, clean and dry 11:54:40 Post Procedure Pulses reassessed and unchanged 11:54:43 Post-procedure physical assessment completed. ASA score P 2 - A patient with mild systemic disease as per Magno Roque MD. 11:54:45 Post procedure rhythm: unchanged. 11:54:47 Estimated blood loss: 10 ml 11:54:49 Post procedure instruction explained to patient.Patient verbalizes understanding. 11:54:50 Patient needs reinforcement of post procedure teaching. 11:55:10 Procedure type changed to Cath procedure, Diagnostic procedure, LHC, LHC w/Coronaries w/Grafts, Sedation Charges, Moderate Sedation up to 30 minutes, PCI procedure, Coronary Stent, Coronary Stent Initial 11:55:33 Procedure Complication : No complications 11:55:35 See physician's report for complete and final results. 11:56:21 GUIDE 6FR AR 2.0 SH catheter ([id number]) opened to sterile field. 11:57:12 Procedure and supply charges have been captured, reviewed, submitted and are correct. 11:57:38 Vital chart was stopped 11:57:41 Report given to Pre/Post Procedure Room. 11:57:44 Patient transfered to Pre/Post Procedure Room with Stretcher. 11:57:51 Procedure ended. 11:57:51 Full Disclosure recording stopped 11:57:54 End room use (Document Last) Intervention Summary Intervention Notes Time ActionType Lesion and Equipment Action# Pressure Duration Attributes Used 11:40:12 Inflate Mid RCA EUPHORA 3.0 x 1 13 00:08 balloon 30 Balloon ([id number]) 11:42:30 Place stent Mid RCA ANTONIO OTW 3.0 2 13 00:06 x 38 stent ([id number]) 11:45:18 Place stent Mid RCA ANTONIO OTW 3.0 3 13 00:05 x 38 stent ([id number]) 11:51:56 Place stent Dist RCA ANTONIO OTW 2.5 1 13 00:10 x 12 stent ([id number]) Device Usage Item Name Manufacture Quantity Catalog Number [facility] Part [facility] Lot# / Charge Number Stock Stock Serial# Code ACIST Syringe Acist 1 20531 891291 692613 608003 20 (55203) Medical Systems Inc Bag Decanter Microtek 1 [id number] 40643 815506 5 () Medical Inc. Medline Cath Cardinal 1 [id number] 080408 61383 176462 5 Pack Health ([id number]) SHEATH 5FR Terumo 1 OMV826 148211 932433 316238 40 [place] (HWR161) DIAGNOSTIC St Suraj 1 199746 986180 968537 242154 30 WIRE .035 260cm J wire (065499) ACIST Hand Acist 1 73061 497854 634623 368743 5 Control Medical (13455) Systems Inc ACIST Acist 1 62538 939167 140788 523236 5 Manifold Medical (51844) Systems Inc DIAGNOSTIC Cardinal 1 MN9660 967328 40659 371720 30 Multipack 5Fr Health catheter set (ZH6701) Tegaderm 4 x 3M 1 1626W 123263 102114 650954 5 4 (1626W) PERCUTANEOUS [facility] 1 G51787 815529 703112 5 ENTRY 19GA needle MULTIPACK Cardinal 1 439665 5 Pigtail 5 Fr Health catheter MULTIPACK JL Cardinal 1 148679 5 4.0 5Fr Health catheter MULTIPACK Cardinal 1 820738 5 3DRC 5Fr Health catheter INFLATOR [facility] 1 BP1606 447189 486119 156772 15 [employer] Medical BasixCompak (XF7420) SHEATH 6FR Terumo 1 SFZ076 726861 783604 681312 40 [place] (XFI213) DIAGNOSTIC AR Cardinal 1 [id number] 118304 835232 705583 20 2 MOD 5 Fr Health catheter (353221E) CHOICE PT [place] 1 [id number] 205094 20190426 401877 5 Extra Support Scientific J 300cm guide wire (3941016K7) EUPHORA 3.0 x Medtronic 1 [id number] 146667 100726 396235 5 [id number] 30 Balloon ([id number]) ANTONIO OTW 3.0 Medtronic 2 [id number] 498767 7825559 741962 5 [id number] x 38 stent [id number] ([id number]) ANTONIO OTW 2.5 Medtronic 1 [id number] 884523 35834 090792 5 [id number] x 12 stent ([id number]) EXOSEAL 6Fr Cardinal 1 EX600 129697 970214 397328 10 (EX600) Health GUIDE 6FR AR Medtronic 1 [id number] 675385 39615 281154 1 2.0 SH catheter ([id number]) Signature Audit [place] Stage Time Signature Unsigned Intra-Procedure 01/08/2018 Kelle 11:58:04 AM Counts RT(R) Signatures Monitor : Kelle Signature : Counts RT Date : Time : [address] [place] [address]
[~2018-01-08 08:18] MED LIST changes: -MUCINEX DM ER1 EAC1 PO; -OXYCONTIN15 MG PO; -TENORMIN50 MG PO
[2018-01-08 09:13] VITALS: BP 146/75; Ht 172.7 cm; Wt 84.1 kg
[2018-01-08 09:30] LABS: BASOPHILS 0.5 % (0-2); EOSINOPHILS 3.3 % (0-7); HEMATOCRIT 37.7 % (42.0-54.0); HEMOGLOBIN 12.7 g/dL (13.5-17.5); IMMATURE GRANULOCYTES 0.4 % (0-5); LYMPHOCYTES 30.2 % (15-50); MCH 32.2 pg (26.0-34.0); MCHC 33.7 g/dL (31.0-37.0); MCV 95.4 fL (80.0-100.0); MEAN PLATELET VOLUME 9.1 fL (7.4-10.4); MONOCYTES 10.7 % (2-11); NEUTROPHILS 54.9 % (40-80); PLATELET COUNT 259 10x3/uL (130-400); RBC 3.95 10x6/uL (4.20-6.10); RDW 13.7 % (11.5-14.5); WBC 8.5 10x3/uL (4.8-10.8)
[2018-01-08 09:38] LABS: ANION GAP 10.3 mmol/L (8-16); CALCIUM 8.4 mg/dL (8.5-10.1); CARBON DIOXIDE 26.2 mmol/L (21.0-32.0); CREATININE - SERUM 1.6 mg/dL (0.6-1.3); POTASSIUM - SERUM 4.5 mmol/L (3.5-5.1)
== END 2018-01-08 16:00 | disposition home or self-care (01) ==
LOC: D.CATH 08:18
PROVIDERS: Internal Medicine Interventional Cardiology
DX: I25.119 Atherosclerotic heart disease of native coronary artery with unspecified angina pectoris (principal); T82.855A Stenosis of coronary artery stent, initial encounter; Z01.812 Encounter for preprocedural laboratory examination
CPT/HCPCS: 93459; C9600

== ENCOUNTER 2018-03-09 08:44 | Outpatient (CLI) | payer MEDICARE, BC ==
[~2018-03-09] VITALS: Ht 172.7 cm; Wt 78.0 kg
--- NOTE | ~2018-03-09 | HEMODYNAMI ---
PATIENT:TRACY WEST MEDICAL RECORD: [id number] : 42 LOCATION:[facility] ADMISSION DATE: 03/09/18 Generatedon:03/09/201812:32 Patient name: TRACY WEST Patient #: [id number] SSN: [id number] : 1940 Date of study: 03/09/2018 Page: Of Hemodynamic Procedure Report Patient Data Patient Demographics Procedure consent was obtained First Name: TRACY Gender: Male Last Name: JENNA : 1940 [facility] Initial: R Age: 77 year(s) Patient #: [id number] Race: SSN: [id number] Additional ID: [id number] Contact details Address: [address] [place] [address] [place] State: [place] City: [place] Zip code: [address] Past Medical History History of disease Date Diagnosis Comments CAD Allergies Allergen Reaction Date Comments Reported Other allergy 11/27/2015 TALWIN Other allergy 12/12/2016 TALWIN, ARITHERMYCIN Other allergy 05/29/2017 Talwin Other allergy 06/02/2017 TALWIN Other allergy 03/09/2018 GATITO Admission Admission Data Admission Date: 03/09/2018 Admission Time: 8:44 Lab Results Lab Result Date: 03/09/2018 Lab Result Time: 0:00 Biochemistry Name Units Result Min Max BUN mg/dl 22 --(----)-* 7 18 Creatinine mg/dl 1.7 --(----)-* 0.6 1.3 CBC Name Units Result Min Max Hemoglobin g/dl 15.1 --(-*--)-- 13.5 17.5 Procedure Procedure Types Cath Procedure Diagnostic Procedure LHC LHC w/Coronaries w/Grafts FFR/IVUS Intra-Coronary IVUS Initial Sedation Charges Moderate Sedation up to 15 minutes PCI Procedure Coronary Stent Coronary Stent Initial Procedure Description Procedure Date Procedure Date: 03/09/2018 Procedure Start Time: 12:13 Procedure End Time: 12:31 Procedure Staff Name Function Magno Roque MD Performing Physician Adela Cooper RT Monitor Jose Luis Gomez RT Scrub Luis Sharp RN Nurse Procedure Data Cath Procedure Fluoroscopy Diagnostic fluoroscopy Total fluoroscopy Time: 4.9 time: 4.9 min min Diagnostic fluoroscopy Total fluoroscopy dose: 533 dose: 533 mGy mGy Contrast Material Contrast Material Type Amount (ml) Isovue 370 114 Entry Location Entry Primary Successful Side Size Upsize Upsize Entry Closure Succes sful Closure Location (Fr) 1 (Fr) 2 (Fr) Remarks Device Remarks Femoral Right 5 Fr 6 Fr Exoseal artery Short Estimated blood loss: 10 ml Diagnostic catheters Device Type Used For End Catheter Placement MULTIPACK Pigtail 5 Fr Procedure catheter MULTIPACK JL 4.0 5Fr Procedure catheter MULTIPACK 3DRC 5Fr Procedure catheter DIAGNOSTIC AR 2 MOD 5 Fr Procedure catheter ([id number]) Procedure Complications No complications Procedure Medications Medication Administration Route Dosage 0.9% NaCl I.V. 100 ml/hr Oxygen etCO2 Nasal cannula 2 l/min Heparin Flush Bag added to field 2 bags (1000units/500ml NS) Lidocaine 2% added to field 20 Versed I.V. 1 mg Fentanyl I.V. 50 mcg Fentanyl I.V. 50 mcg Versed I.V. 1 mg Heparin Bolus I.V. 4000 units Hemodynamics Rest HGB: 15.1 (g/dl) Heart Rate: 60 (bpm) Snapshots Pre Cath Intra NCS Post Cath Vital Signs Time Heart Resp SPO2 etCO2 NIBP (mmHg) Rhythm Pain Sedation Rate (ipm) (%) (mmHg) Status Level (bpm) 11:53:40 63 18 99 0 159/73(127) NSR 0 (11) 10(A) , No pain 11:58:21 58 19 100 34.4 141/71(113) NSR 0 (11) 10(A) , No pain 12:02:59 56 12 100 31.4 126/63(95) NSR 0 (11) 10(A) , No pain 12:08:09 60 16 100 32.9 130/61(103) NSR 0 (11) 10(A) , No pain 12:12:47 57 16 100 30.7 113/63(92) NSR 0 (11) 10(A) , No pain 12:17:26 61 15 99 2.2 112/59(85) NSR 0 (11) 10(A) , No pain 12:22:04 64 14 100 29.2 119/60(91) NSR 0 (11) 10(A) , No pain 12:26:41 62 14 99 29.9 107/52(82) NSR 0 (11) 10(A) , No pain 12:31:19 65 16 99 32.9 107/56(85) NSR 0 (11) 10(A) , No pain Medications Time Medication Route Dose Verified Delivered Reason Notes Effectiveness by by 11:58:13 0.9% NaCl I.V. 100 Luis Luis Per physician ml/hr Aron Sharp RN RN 11:58:25 Oxygen etCO2 2 Luis Luis Per physician Nasal l/min Aron Sharp cannula RN RN 11:58:36 Heparin Flush added 2 Luis Luis used for Bag to bags Aron Sharp procedure (1000units/500ml RN RN NS) 11:58:48 Lidocaine 2% added 20ml Luis Luis for local to vial Aron Sharp anesthetic field RN RN 12:11:28 Versed I.V. 1 mg Luis Luis for sedation Aron Sharp RN RN 12:11:37 Fentanyl I.V. 50 Luis Luis for sedation mcg Aron Sharp RN RN 12:13:44 Fentanyl I.V. 50 Luis Luis for sedation mcg Aron Sharp RN RN 12:13:52 Versed I.V. 1 mg Luis Luis for sedation Aron Sharp RN RN 12:22:59 Heparin Bolus I.V. 4000 Luis Luis for units Aron Sharp anticoagulation RN [email or web address] developer Log Time Note 11:42:48 Signed procedure consent form obtained from patient. 11:42:49 Time tracking: Regular hours (M-F 7:00 - 5:00) 11:42:53 Plan of Care:Hemodynamics will remain stable., Cardiac rhythm will remain stable., Comfort level will be maintained., Respiratory function will remain adequate., Patient/ family verbilizes understanding of procedure., Procedure tolerated without complication., Recovers from procedure without complications.. 11:42:57 Luis Sharp RN sent for patient. Start room use. 11:45:00 Patient allergic to Other allergyTALWIN 11:45:31 Lab Result : Creatinine 1.7 mg/dl 11:45:31 Lab Result : BUN 22 mg/dl 11:45:31 Lab Result : Hemoglobin 15.1 g/dl 11:48:52 Patient received from Pre/Post Procedure Room to CCL 1 Alert and oriented. Tansferred to table in Supine position. 11:48:54 Warm blankets applied, and brad hugger turned on for patient comfort. 11:48:55 Correct patient and procedure confirmed by team. 11:48:56 ECG and BP/O2 sat monitors applied to patient. 11:52:37 Vital chart was started 11:52:40 Rhythm: sinus rhythm 11:52:42 Full Disclosure recording started 11:52:54 H&P Date Dictated: 03/08/2018 Within 30 days and on chart., H&P Addendum completed by physician on day of procedure. (MUST COMPLETE FOR ALL OUTPATIENTS). 11:52:55 Pre-procedure instructions explained to patient. 11:52:56 Pre-op teaching completed and patient verbalized understanding. 11:52:58 Family in waiting room. 11:53:02 Patient NPO since Midnight. 11:53:05 Is the patient allergic to Iodine/contrast media? No. 11:53:07 Is patient on blood thinner?Yes 11:53:09 ACC The patient was administered the following blood thiners within the last 24 hours: ACCPlavix 11:53:11 Patient diabetic? No. 11:53:14 Previous problem with sedation/anesthesia? No ? 11:53:15 Snore? No 11:53:16 Sleep apnea? No 11:53:17 Deviated septum? No 11:53:18 Opens mouth fully? Yes 11:53:18 Sticks out tongue? Yes 11:53:33 Airway obstruction? Yes PULMONARY FIBROSIS 11:53:39 Dentures? Yes OUT 11:53:41 Pre procedure: right dorsailis pedis pulse 2+ Normal; easily identifiable; not easily obliterated 11:53:43 Patient pain scale 0/10 ?. 11:53:48 IV patent on arrival in left forearm with 0.9% NaCl at KVO. 11:53:51 Lab results completed and on chart. 11:54:00 Right groin area was prepped with chlora-prep and draped in sterile fashion 11:54:01 Alarms reviewed by Tammie Thao. 11:54:01 Sharps counted by scrub and verified by R.N. 11:55:49 Use device set Femoral Dx 11:55:51 ACIST Syringe (47370) opened to sterile field. 11:55:51 Bag Decanter (2002S) opened to sterile field. 11:55:52 Medline Cath Pack ([id number]) opened to sterile field. 11:55:52 DIAGNOSTIC WIRE .035 260cm J wire (595665) opened to sterile field. 11:55:54 ACIST Hand Control (60822) opened to sterile field. 11:55:54 ACIST Manifold (39288) opened to sterile field. 11:55:55 DIAGNOSTIC Multipack 5Fr catheter set (TH6054) opened to sterile field. 11:55:56 Tegaderm 4 x 4 (1626W) opened to sterile field. 11:55:56 PERCUTANEOUS ENTRY 19GA needle opened to sterile field. 11:55:58 SHEATH Prelude 5Fr 0.035 (QNV-7H-64-035) opened to sterile field. 11:57:26 Baseline sample Acquired. 11:58:13 0.9% NaCl 100 ml/hr I.V. was administered by Luis Sharp RN; Per physician; 11:58:25 Oxygen 2 l/min etCO2 Nasal cannula was administered by Luis Sharp RN; Per physician; 11:58:36 Heparin Flush Bag (1000units/500ml NS) 2 bags added to field was administered by Luis Sharp RN; used for procedure; 11:58:48 Lidocaine 2% 20ml vial added to field was administered by Luis Sharp RN; for local anesthetic; 12:01:07 Physician paged 12:06:39 Zero performed for pressure channel P1 12:08:49 Zero performed for pressure channel P1 12::44 --------ALL STOP TIME OUT------ 12::44 Final Timeout: patient, procedure, and site verified with staff and physician. All members of the team are in agreement. 12:10:47 Right groin site verified by team. 12:10:51 Physical assessment completed. ASA score P 2 - A patient with mild systemic disease as per Magno Roque MD. 12:10:55 Sedation plan: IV Moderate Sedation Medication:Versed, Fentanyl 12:11:28 Versed 1 mg I.V. was administered by Luis Sharp RN; for sedation; 12:11:37 Fentanyl 50 mcg I.V. was administered by Luis Sharp RN; for sedation; 12:12:56 Procedure started. 12:13:01 Local anesthetic to right femoral artery with Lidocaine 2% by Magno Roque MD.INITIAL ACCESS ONLY 12:13:40 A 5 Fr sheath was inserted into the Right Femoral artery 12:13:44 Fentanyl 50 mcg I.V. was administered by Luis Sharp RN; for sedation; 12:13:52 Versed 1 mg I.V. was administered by Luis Sharp RN; for sedation; 12:13:52 A MULTIPACK Pigtail 5 Fr catheter was advanced over the wire and used for Procedure. 12:14:14 Injector settings: Ml/sec: 10, Volume: 20, 12:14:20 LV gram done using IBRAHIM 12:14:47 EF : 50 % 12:14:49 Catheter removed. 12:15:04 A MULTIPACK JL 4.0 5Fr catheter was advanced over the wire and used for Procedure. 12:15:33 LCA angiography performed. 12:15:52 Catheter removed. 12:16:22 A MULTIPACK 3DRC 5Fr catheter was advanced over the wire and used for Procedure. 12:16:54 HARTLEY to LAD angiography performed. 12:17:35 RCA angiography performed. 12:18:30 Catheter removed. 12:18:36 A DIAGNOSTIC AR 2 MOD 5 Fr catheter ([id number]) was advanced over the wire and used for Procedure. 12:18:40 SHEATH 6FR Wallace (ZVA297) opened to sterile field. 12:18:41 INFLATOR Merit BasixCompak (VV5227) opened to sterile field. 12:18:42 CHOICE PT Extra Support 182cm wire ([id number]) opened to sterile field. 12:20:12 SVG to Circ angiography performed. 12:20:15 SVG to Diag angiography performed. 12:20:18 Catheter removed. 12:20:28 Sheath upsized to a 6 Fr Short. 12:21:47 GUIDE 6FR 3DRC SH catheter ([id number]) opened to sterile field. 12:22:05 6 Fr 3DRC SH guide catheter was inserted over the wire 12:22:07 Kent [place] IVUS Catheter (49545E) opened to sterile field. 12:22:40 CHOICE ES wire advanced. 12:22:43 Wire advanced across lesion. 12::59 Heparin Bolus 4000 units I.V. was administered by Luis Sharp RN; for anticoagulation; 12:24:54 IVUS catheter advanced over wire. 12:24:56 IVUS pass to RCA lesion performed. 12:24:58 IVUS catheter removed over wire. 12:26:28 Place stent Inflation Number: 1 A ANTONIO RX 3.5 x 22 stent ([id number]) was prepped and advanced across the Prox RCA. The stent was deployed at 19 SANDRA for 0:10 (min:sec). 12:27:11 EXOSEAL 6Fr (EX600) opened to sterile field. 12:27:23 Stent catheter was removed intact over wire. 12:27:23 Balloon removed over the wire. 12:27:24 Guide catheter removed. 12:27:32 Sheath removed intact; hemostasis achieved with Exoseal to the Right Femoral artery. 12:28:26 Procedure ended.(Physican Out) 12:30:18 Fluoroscopy time 04.90 minutes. 12:30:21 Flurop Dose total: 533 12:30:21 Fluoroscopy dose: 533 mGy 12:30:25 Contrast amount:Isovue 370 114ml. 12:30:27 Sharps counted by scrub and verified by R.N. 12:30:30 Post-op/insertion site Right Femoral artery dressed using a 4 x 4 and Tegaderm. 12:30:33 Post right femoral artery:stable, soft, clean and dry 12:30:38 Post-procedure physical assessment completed. ASA score P 2 - A patient with mild systemic disease as per Magno Roque MD. 12:30:42 Post procedure rhythm: unchanged. 12:30:46 Estimated blood loss: 10 ml 12:30:47 Post procedure instruction explained to patient.Patient verbalizes understanding. 12:30:48 Patient needs reinforcement of post procedure teaching. 12:31:37 Procedure type changed to Cath procedure, Diagnostic procedure, LHC, LHC w/Coronaries w/Grafts, FFR/IVUS, Intra-Coronary IVUS Initial, Sedation Charges, Moderate Sedation up to 15 minutes, PCI procedure, Coronary Stent, Coronary Stent Initial 12:31:38 Procedure and supply charges have been captured, reviewed, submitted and are correct. 12:31:43 Procedure Complication : No complications 12:31:46 Vital chart was stopped 12::46 See physician's report for complete and final results. 12:31:48 Report given to Pre/Post Procedure Room. 12:31:50 Patient transfered to Pre/Post Procedure Room with Bed. 12:31:53 Procedure ended. 12:31:53 Full Disclosure recording stopped 12:31:56 End room use (Document Last) Intervention Summary Intervention Notes Time ActionType Lesion and Equipment Used Action# Pressure Duration Attributes 12:26:28 Place stent Prox RCA ANTONIO RX 3.5 x 1 19 00:10 22 stent ([id number]) Device Usage Item Name Manufacture Quantity Catalog Number Hospital Part Current Minimal Lot# / Charge Number Stock Stock Serial# Code ACIST Syringe Acist 1 56952 000645 178659 271927 20 (40449) Medical [employer] Inc Bag Decanter Microtek 1 2001S 595525 59531 838048 5 (2001S) Medical Inc. Medline Cath Cardinal 1 [id number] 094469 35977 162803 5 Food Genius Health ([id number]) DIAGNOSTIC WIRE St Suraj 1 452862 946304 324002 079045 30 .035 260cm J wire (912301) ACIST Hand Acist 1 84239 098741 077756 924968 5 Control (22110) [employer] Inc ACIST Manifold Acist 1 43061 640677 871782 705781 5 (54015) Medical Systems Inc DIAGNOSTIC Cardinal 1 [id number] 922236 93953 748377 30 Multipack 5Fr Health catheter set (YV3098) Tegaderm 4 x 4 3M 1 1626W 889905 091954 338110 5 (1626W) PERCUTANEOUS Cook Medical 1 W61803 284363 545651 5 ENTRY 19GA needle SHEATH Prelude Merit 1 GAM-3D-09-035 961628 301156 618866 5 5Fr 0.035 Medical (TAX-0B-76-035) MULTIPACK Cardinal 1 788561 5 Pigtail 5 Fr Health catheter MULTIPACK JL Cardinal 1 332442 5 4.0 5Fr Health catheter MULTIPACK 3DRC Cardinal 1 002992 5 5Fr catheter Health DIAGNOSTIC AR 2 Cardinal 1 [id number] 796649 033455 585115 20 MOD 5 Fr Health catheter ([id number]) SHEATH 6FR Terumo 1 LTJ449 000623 596932 860251 40 Wallace (IFV061) INFLATOR Merit Merit 1 MM1212 669493 402949 141527 15 [facility] Medical (BF5057) CHOICE PT Extra Sterling 1 [id number] 971919 025114 360542 5 Support 182cm Scientific wire ([id number]) GUIDE 6FR 3DRC Medtronic 1 [id number] 086980 860326 115269 1 SH catheter ([id number]) Kent Kent 1 [id number] 288990 911944 237882 8 [place] IVUS Catheter (65428M) ANTONIO RX 3.5 x Medtronic 1 [id number] 680341 9568099 937823 5 [id number] 22 stent ([id number]) EXOSEAL 6Fr Cardinal 1 EX600 760162 798091 403854 10 (EX600) Health Signature Audit [place] Stage Time Signature Unsigned Intra-Procedure 03/09/2018 Adela Cooper 12:32:28 PM RT(R) Signatures Monitor : Adela Cooper Signature : RT Date : Time : [place] [id number] [place] [address]
--- NOTE | ~2018-03-09 | HEMODYNAMI ---
PATIENT:TRACY WEST MEDICAL RECORD: [id number] : 42 [facility] [id number] ADMISSION DATE: 03/09/18 Generatedon:03/10/201812:25 Patient name: TRACY WEST Patient #: [id number] SSN: [id number] : 1940 Date of study: 03/10/2018 Page: Of Hemodynamic Procedure Report Patient Data Patient Demographics Procedure consent was obtained First Name: TRACY Gender: Male Last Name: JENNA : 1940 [facility] Initial: R Age: 77 year(s) Patient #: [id number] Race: SSN: [id number] Additional ID: [id number] Contact details Address: [address] [place] [address] [employer] State: [place] City: [place] Zip code: [address] Past Medical History History of disease Date Diagnosis Comments CAD Allergies Allergen Reaction Date Comments Reported Other allergy 11/27/2015 TALWIN Other allergy 12/12/2016 TALWIN, ARITHERMYCIN Other allergy 05/29/2017 Talwin Other allergy 06/02/2017 TALWIN Other allergy 03/09/2018 GATITO Admission Admission Data Admission Date: 03/09/2018 Admission Time: 8:44 Room #: D.2123 Lab Results Lab Result Date: 03/09/2018 Lab Result Time: 0:00 Biochemistry Name Units Result Min Max BUN mg/dl 22 --(----)-* 7 18 Creatinine mg/dl 1.7 --(----)-* 0.6 1.3 CBC Name Units Result Min Max Hemoglobin g/dl 15.1 --(-*--)-- 13.5 17.5 Procedure Procedure Types Cath Procedure PCI Procedure AMI/SVG/SAMPLE WEAVER PTCA or Stent SVG-BMS/KIM Initial PTCA PTCA Initial Procedure Description Procedure Date Procedure Date: 03/10/2018 Procedure Start Time: 12:09 Procedure End Time: 12:25 Procedure Staff Name Function Magno Roque MD Performing Physician Kelle Lund RT Monitor Joseph Galvez RN Nurse Jose Luis Gomez RT Scrub Procedure Data Cath Procedure Fluoroscopy Diagnostic fluoroscopy Total fluoroscopy Time: 3.5 time: 3.5 min min Diagnostic fluoroscopy Total fluoroscopy dose: 204 dose: 204 mGy mGy Contrast Material Contrast Material Type Amount (ml) Isovue 370 51 Entry Location Entry Primary Successful Side Size Upsize Upsize Entry Closure Succes sful Closure Location (Fr) 1 (Fr) 2 (Fr) Remarks Device Remarks Femoral Left 6 Fr Exoseal artery Short Estimated blood loss: 10 ml Procedure Complications No complications Procedure Medications Medication Administration Route Dosage Oxygen NC 2 l/min Lidocaine 2% added to field 20 Heparin Flush Bag added to field 2 bags (1000units/500ml NS) 0.9% NaCl I.V. 100 ml/hr Versed I.V. 1 mg Fentanyl I.V. 50 mcg Heparin Bolus I.V. 4000 units Versed I.V. 1 mg Fentanyl I.V. 50 mcg Versed I.V. 1 mg Fentanyl I.V. 50 mcg Hemodynamics Rest HGB: 15.1 (g/dl) Heart Rate: 64 (bpm) Snapshots Pre Cath Intra NCS Post Cath Vital Signs Time Heart Resp SPO2 etCO2 NIBP (mmHg) Rhythm Pain Sedation Rate (ipm) (%) (mmHg) Status Level (bpm) 11:53:18 64 18 97 34.4 146/69(120) NSR 0 (11) 10(A) , No pain 11:58:03 60 17 94 32.2 127/63(92) NSR 0 (11) 10(A) , No pain 12:03:23 60 17 97 17.2 113/56(85) NSR 0 (11) 10(A) , No pain 12:11:32 62 15 96 16.4 107/52(76) NSR 0 (11) 9(A) , No pain 12:16:15 65 15 97 17.2 109/49(75) NSR 0 (11) 9(A) , No pain 12:20:55 64 16 98 28.4 111/55(97) NSR 0 (11) 9(A) , No pain 12:24:32 64 15 97 35.2 109/55(72) NSR 0 (11) 10(A) , No pain Medications Time Medication Route Dose Verified Delivered Reason Notes Effectiveness by by 11:53:26 Oxygen NC 2 Magno Buffie used for l/min Jude Galvez RN procedure 11:53:33 Lidocaine 2% added 20ml Magno Magno for local to vial Jude Roque MD anesthetic field 11:53:39 Heparin Flush added 2 Magno Magno used for Bag to bags Jude Roque MD procedure (1000units/500ml field NS) 11:53:48 0.9% NaCl I.V. 100 Magno Buffie Per physician ml/hr Jude Galvez RN 12:09:45 Versed I.V. 1 mg Magno Buffie for sedation Jude Galvez RN 12:09:50 Fentanyl I.V. 50 Magno Buffie for sedation mcg Jude Galvez RN 12:11:48 Heparin Bolus I.V. 4000 Magno Buffie for verifi ed units Jude Galvez RN anticoagulation with dr roque 12:11:54 Versed I.V. 1 mg Magno Buffie for sedation Jude Galvez RN 12:11:58 Fentanyl I.V. 50 Magno Buffie for sedation mcg Jude Galvez RN 12:18:51 Versed I.V. 1 mg Magno Buffie for sedation Jude Galvez RN 12:18:55 Fentanyl I.V. 50 Magno Buffie for sedation mcg Jude Galvez RN Procedure Log Time Note 11:30:03 Time tracking: Regular hours (M-F 7:00 - 5:00) 11:30:06 Plan of Care:Hemodynamics will remain stable., Cardiac rhythm will remain stable., Comfort level will be maintained., Respiratory function will remain adequate., Patient/ family verbilizes understanding of procedure., Procedure tolerated without complication., Recovers from procedure without complications.. 11:35:35 Kelle Counts RT(R) sent for patient. Start room use. 11:45:49 Patient received from Med II to CCL 1 Alert and oriented. Tansferred to table in Supine position. 11:45:50 Warm blankets applied, and brad hugger turned on for patient comfort. 11:45:51 Correct patient and procedure confirmed by team. 11:45:52 Signed procedure consent form obtained from patient. 11:45:53 ECG and BP/O2 sat monitors applied to patient. 11:45:54 Pre-procedure instructions explained to patient. 11:45:55 Pre-op teaching completed and patient verbalized understanding. 11:45:56 Family in patients room. 11:45:58 Patient NPO since Midnight. 11:52:22 Vital chart was started 11:52:25 Rhythm: sinus rhythm 11:52:26 Full Disclosure recording started 11:53:20 Baseline sample Acquired. 11:53:26 Oxygen 2 l/min NC was administered by Joseph Galvez RN; used for procedure; 11:53:31 H&P Date Dictated: 03/08/2018 Within 30 days and on chart., H&P Addendum completed by physician on day of procedure. (MUST COMPLETE FOR ALL OUTPATIENTS). 11:53:33 Lidocaine 2% 20ml vial added to field was administered by Magno Roque MD; for local anesthetic; 11:53:39 Heparin Flush Bag (1000units/500ml NS) 2 bags added to field was administered by Magon Roque MD; used for procedure; 11:53:39 Is the patient allergic to Iodine/contrast media? No. 11:53:40 Is patient on blood thinner?Yes 11:53:43 ACC The patient was administered the following blood thiners within the last 24 hours: ACCPlavix 11:53:45 Patient diabetic? No. 11:53:48 0.9% NaCl 100 ml/hr I.V. was administered by Joseph Galvez RN; Per physician; 11:54:00 Previous problem with sedation/anesthesia? No ? 11:54:01 Snore? No 11:54:02 Sleep apnea? No 11:54:03 Deviated septum? No 11:54:04 Opens mouth fully? Yes 11:54:04 Sticks out tongue? Yes 11:54:10 Airway obstruction? Yes COPD 11:54:14 Dentures? Yes Out 11:54:17 Pre procedure: left dorsailis pedis pulse 2+ Normal; easily identifiable; not easily obliterated 11:54:20 Patient pain scale 0/10 ?. 11:54:28 IV patent on arrival in left forearm with 0.9% NaCl at [facility]. 11:54:30 Lab results completed and on chart. 11:54:35 Left groin area was prepped with chlora-prep and draped in sterile fashion 11:54:35 Alarms reviewed by R. N. 11:54:36 Sharps counted by scrub and verified by R.N. 11:54:41 Use device set CATH PACK 11:54:54 Tegaderm 4 x 4 (1626W) opened to sterile field. 11:54:54 PERCUTANEOUS ENTRY 19GA needle opened to sterile field. 11:54:55 DIAGNOSTIC WIRE .035 260cm J wire ([id number]) opened to sterile field. 11:54:55 Bag Decanter (2002S) opened to sterile field. 11:54:56 Medline Cath Pack ([id number]) opened to sterile field. 11:54:57 ACIST Manifold (18264) opened to sterile field. 11:54:58 ACIST Syringe (01287) opened to sterile field. 11:54:59 ACIST Hand Control (64350) opened to sterile field. 11:55:07 Use device set TAUTH PCI 11:55:19 SHEATH 6Fr Prelude ([id number]) opened to sterile field. 11:55:23 INFLATOR Merit BasixCompak (ZH4097) opened to sterile field. 12:07:25 Final Timeout: patient, procedure, and site verified with staff and physician. All members of the team are in agreement. 12:07:29 Left groin site verified by team. 12:07:32 Physical assessment completed. ASA score P 2 - A patient with mild systemic disease as per Magno Roque MD. 12:07:34 Sedation plan: IV Moderate Sedation Medication:Versed, Fentanyl 12:09:32 Procedure started. 12:09:38 Local anesthetic to left femerol artery with Lidocaine 2% by Magno Roque MD.INITIAL ACCESS ONLY 12:09:45 Versed 1 mg I.V. was administered by Joseph Galvez RN; for sedation; 12:09:50 Fentanyl 50 mcg I.V. was administered by Joseph Galvez RN; for sedation; 12:10:04 A 6 Fr Short sheath was inserted into the Left Femoral artery 12:10:21 GUIDE 6FR RAVINDER 90 catheter ([id number]) opened to sterile field. 12:10:26 WHISPER 300cm guide wire ([id number]) opened to sterile field. 12:10:41 6 Fr RAVINDER 90 guide catheter was inserted over the wire 12:11:48 Heparin Bolus 4000 units I.V. was administered by Joseph Galvez RN; for anticoagulation; verified with dr roque 12:11:54 Versed 1 mg I.V. was administered by Joseph Galvez RN; for sedation; 12:11:58 Fentanyl 50 mcg I.V. was administered by Joseph Galvez RN; for sedation; 12:12:24 Whisper wire advanced. 12:14:48 Place stent Inflation Number: 1 A ANTONIO OTW 2.5 x 15 stent ([id number]) was prepped and advanced across the HARTLEY -> Mid LAD. The stent was deployed at 17 SANDRA for 0:04 (min:sec). 12:15:11 Stent catheter was removed intact over wire. 12:15:11 Wire removed. 12:15:12 Guide catheter removed. 12:15:35 CHOICE PT Extra Support 182cm wire ([id number]) opened to sterile field. 12:15:48 GUIDE 6FR XBLAD 3.5 catheter ([id number]) opened to sterile field. 12:16:12 6 Fr XBLAD 3.5 guide catheter was inserted over the wire 12:16:24 CHOICE PT ES wire advanced. 12:17:46 Inflate balloon Inflation number: 1 A EUPHORA 3.0 x 15 Balloon ([id number]) was prepped and advanced across the LMCA, then inflated to 11 SANDRA for 0:07 (min:sec). 12:18:08 Inflation number: 2 The EUPHORA 3.0 x 15 Balloon ([id number]) was reinflated across the LMCA, to 11 SANDRA for 0:17 (min:sec). 12:18:28 Inflation number: 3 The EUPHORA 3.0 x 15 Balloon ([id number]) was reinflated across the LMCA, to 11 SANDRA for 0:10 (min:sec). 12:18:38 Inflation number: 4 The EUPHORA 3.0 x 15 Balloon ([id number]) was reinflated across the LMCA, to 11 SANDRA for 0:08 (min:sec). 12:18:51 Versed 1 mg I.V. was administered by Joseph Galvez RN; for sedation; 12:18:54 Balloon removed over the wire. 12:18:55 Fentanyl 50 mcg I.V. was administered by Joseph Galvze RN; for sedation; 12:18:56 Wire removed. 12:18:56 Guide catheter removed. 12:19:03 Sheath removed intact; hemostasis achieved with Exoseal to the Left Femoral artery. 12:19:05 Procedure ended.(Physican Out) 12:19:37 Fluoroscopy time 03.50 minutes. 12:19:41 Flurop Dose total: 204 12:19:41 Fluoroscopy dose: 204 mGy 12:19:45 Contrast amount:Isovue 370 51ml. 12:19:46 Sharps counted by scrub and verified by R.N. 12:19:48 Insertion/operative site no bleeding no hematoma. 12:19:52 Post-op/insertion site Left Femoral artery dressed using a 4 x 4 and Tegaderm. 12:19:58 Post left femerol artery:stable, clean and dry 12:20:27 Post Procedure Pulses reassessed and unchanged 12:20:36 Post-procedure physical assessment completed. ASA score P 2 - A patient with mild systemic disease as per Magno Roque MD. 12:20:38 Post procedure rhythm: unchanged. 12:20:49 Estimated blood loss: 10 ml 12:20:50 Post procedure instruction explained to patient.Patient verbalizes understanding. 12:21:04 Procedure type changed to Cath procedure, PCI procedure, AMI/SVG/SAMPLE WEAVER PTCA or Stent, SVG-BMS/KIM Initial, PTCA, PTCA Initial 12:21:26 Procedure Complication : No complications 12:21:28 See physician's report for complete and final results. 12:21:34 EXOSEAL 6Fr (EX600) opened to sterile field. 12:22:59 Procedure and supply charges have been captured, reviewed, submitted and are correct. 12:25:18 Vital chart was stopped 12:25:21 Report given to PCU. 12:25:26 Patient transfered to PCU with Bed. 12::33 Procedure ended. 12:25:33 Full Disclosure recording stopped 12:25:36 End room use (Document Last) Intervention Summary Intervention Notes Time ActionType Lesion and Equipment Action# Pressure Duration Attributes Used 12:14:48 Place stent HARTLEY -> Mid ANTONIO OTW 2.5 1 17 00:04 LAD x 15 stent ([id number]) 12:17:46 Inflate LMCA EUPHORA 3.0 x 1 11 00:07 balloon 15 Balloon ([id number]) 12:18:08 Reinflate LMCA EUPHORA 3.0 x 2 11 00:17 balloon 15 Balloon ([id number]) 12:18:28 Reinflate LMCA EUPHORA 3.0 x 3 11 00:10 balloon 15 Balloon ([id number]) 12:18:38 Reinflate LMCA EUPHORA 3.0 x 4 11 00:09 balloon 15 Balloon ([id number]) Device Usage Item Name Manufacture Quantity Catalog Number Hospital Part Current Min imal Lot# / Charge Number Stock Stock Serial# Code Tegaderm 4 x 3M 1 1626W [id number] 176428 930400 5 4 (1626W) PERCUTANEOUS Cook Medical 1 [id number] 656293 335229 5 ENTRY 19GA needle DIAGNOSTIC [address] Suraj 1 975777 572500 137526 266247 30 WIRE .035 260cm J wire (735313) Bag Decanter Microtek 1 2001S 309102 60432 457871 5 () Medical Inc. Medline Cath Cardinal 1 [id number] 387281 58307 266659 5 [facility] ([id number]) ACIST Acist 1 69749 927052 590376 705745 5 Manifold Medical (34194) Systems Inc ACIST Syringe Acist 1 08556 673991 281190 594520 20 (12370) Medical Systems Inc ACIST Hand Acist 1 92927 511766 633964 417060 5 Control Medical (41339) Systems Inc SHEATH 6Fr Merit 1 [id number] 606545 171047 708807 5 Prelude Medical ([id number]) INFLATOR Merit 1 NV6093 654993 640406 496693 15 [facility] Medical BasixCompak (UO7906) GUIDE 6FR RAVINDER Medtronic 1 [id number] 436592 00064 350257 1 90 catheter (RG2IQUO) WHISPER 300cm Jimenez 1 [id number] 873414 020818 210108 5 guide wire Vascular ([id number]) ANTONIO OTW 2.5 Medtronic 1 [id number] 084119 41882 220643 5 [id number] x 15 stent ([id number]) CHOICE PT Honaker 1 [id number] 787404 602754 829675 5 Extra Support Scientific 182cm wire ([id number]) GUIDE 6FR Cardinal 1 [id number] 871969 837162 193938 10 XBLAD 3.5 Health catheter ([id number]) EUPHORA 3.0 x Medtronic 1 [id number] 846880 631769 236991 5 [id number] 15 Balloon ([id number]) EXOSEAL 6Fr Cardinal 1 EX600 961256 822561 125344 10 (EX600) Health Signature Audit [place] Stage Time Signature Unsigned Intra-Procedure 03/10/2018 Kelle 12:25:46 PM Counts RT(R) Signatures Monitor : Kelle Signature : Counts RT Date : Time : [address] [address]
--- NOTE | ~2018-03-09 | DS ---
PATIENT:TRACY WEST :42 MEDICAL RECORD: [id number] DISCHARGE SUMMARY ADMISSION DATE: 03/09/18 DISCHARGE DATE: 03/10/18 DISCHARGE DIAGNOSES: 1. Angina. 2. Coronary artery disease. 3. PTCA stent LAD through the HARTLEY and PTCA stent RCA this admission. 4. Hypertension. 5. Hyperlipidemia. HISTORY: Mr. West presents with anginal symptomatology, found to have disease of the RCA and LAD, underwent successful PTCA stent of both territories. Discharged home to continue aspirin and Plavix. Will follow up with [facility] in 1 month. TRANSINT:[id number] Voice Confirmation ID: [id number] DOCUMENT ID: [id number] LIZZY WILSON MD at 1444 CC: [id number] DICTATION DATE: 03/10/18 122 SANDWICH WRAPPER: 03/11/18 1153 DEP CLI 03/10/18 [place] [address] [place] [address]
--- NOTE | ~2018-03-09 | OP ---
PATIENT NAME: TRACY WEST MEDICAL RECORD: [id number] :42 LOCATION:D.CAT ADMISSION DATE: SURGEON: LIZZY WILSON MD DATE OF OPERATION: 03/10/2018 PROCEDURES: 1. PTCA stent LAD through the HARTLEY graft. 2. PTCA left main. 3. Selective coronary angiography. INDICATION: Angina and coronary artery disease. PROCEDURE IN DETAIL: After informed consent was obtained and after a detailed explanation of the risks, benefits as well as alternative therapies, the patient elected to proceed with angiogram and angioplasty. The left femoral area was prepped and draped in normal sterile fashion. Left femoral artery was cannulated via modified Seldinger technique with placement of 6-Finnish sheath. All catheters exchanged through this sheath. FINDINGS: The left anterior descending has 80% in-stent restenosis after the patent HARTLEY graft. This was addressed with a 2.5 x 15 mm Culver taken to 15 atmospheres. Result was 0% residual stenosis. We turned our attention to the left main, feeding into the first septal logistics associate. He has had a previously placed stent with in-stent restenosis of at least 70%. This was ballooned with a 3.0 balloon. OVERALL IMPRESSION: Successful percutaneous transluminal coronary angioplasty stent of the left anterior descending through the patent HARTLEY graft going from 80% initial stenosis to 0% residual. TRANSINT:[id number] Voice Confirmation ID: [id number] DOCUMENT ID: [id number] LIZZY WILSON MD at 1444 CC: [id number] DICTATION DATE: 03/10/18 1224 HUMAN RESOURCES TEMP: 03/10/18 1604 [facility] CLI 03/10/18 [place] [id number]
--- NOTE | ~2018-03-09 | OP ---
PATIENT NAME: TRACY WEST MEDICAL RECORD: [id number] :42 LOCATION:D. D.2123 ADMISSION DATE: SURGEON: LIZZY WILSON MD DATE OF OPERATION: 03/09/2018 PROCEDURES: 1. PTCA stent RCA. 2. Left heart catheterization. 3. Selective coronary angiography. 4. Vein graft angiography. 5. HARTLEY angiography. 6. Intravascular ultrasound. INDICATION: Angina and coronary artery disease. PROCEDURE IN DETAIL: After informed consent was obtained and after a detailed description of the risks, benefits as well as alternative therapies, the patient elected to proceed with angiogram and angioplasty. The right femoral area is prepped and draped in normal sterile fashion. Right femoral artery was cannulated via modified Seldinger technique with placement of 6-Maori sheath. All catheters exchanged through this sheath. FINDINGS: The left ventriculogram was performed in standard 30-degree IBRAHIM view, reveals good cardiac wall motion throughout all segments. Overall ejection fraction is 50% to 55%. SELECTIVE CORONARY ANGIOGRAPHY: 1. Left main has a previously placed stent with 70% in-stent restenosis, this only feeds the first septal porcelain technician of the LAD. 2. The left anterior descending is totally occluded. 3. Left circumflex is totally occluded. 4. The right coronary has previously placed stents. Intravascular ultrasound reveals that there is 72% stenosis in the proximal aspect prior to the stent and throughout the stented area. 5. HARTLEY to the LAD is widely patent; however, the distal LAD after the HARTLEY has 80% stenosis. 6. Vein graft to the first obtuse marginal is widely patent. Distal first obtuse marginal is widely patent. 7. Vein graft to the diagonal is widely patent. Distal diagonal is widely patent. PTCA STENT OF THE RCA: The stent used was a 3.5 x 22 mm Moncho. Result was 0% residual stenosis. OVERALL IMPRESSION: Successful percutaneous transluminal coronary angioplasty stent of the right coronary artery going from 73% initial stenosis to 0% residual stenosis. PLAN: PTCA stent of the LAD through the HARTLEY in the near future. TRANSINT:[id number] Voice Confirmation ID: [id number] DOCUMENT ID: [id number] OPERATIVE REPORT [id number] TRACY WEST LIZZY WILSON MD at 1842 CC: [id number] DICTATION DATE: 03/09/18 1232 OXYGEN FURNACE OPERATOR: 03/09/[address] [facility] [address] [place]
[2018-03-09] MEDS ORDERED: TENORMIN50 MG PO (09:44)
[2018-03-09] MEDS ORDERED: MUCINEX DM ER1 EAC1 PO (09:45)
[2018-03-09] MEDS ORDERED: OXYCONTIN15 MG PO (09:46)
[2018-03-09 09:53] VITALS: BP 163/52; BMI 26.6
[2018-03-09 10:00] LABS: BASOPHILS 0.8 % (0-2); EOSINOPHILS 2.3 % (0-7); HEMOGLOBIN 15.1 g/dL (13.5-17.5); IMMATURE GRANULOCYTES 0.2 % (0-5); LYMPHOCYTES 30.4 % (15-50); MCH 31.7 pg (26.0-34.0); MCHC 34.3 g/dL (31.0-37.0); MCV 92.4 fL (80.0-100.0); MEAN PLATELET VOLUME 8.7 fL (7.4-10.4); MONOCYTES 8.3 % (2-11); RBC 4.76 10x6/uL (4.20-6.10); RDW 12.8 % (11.5-14.5); WBC 8.7 10x3/uL (4.8-10.8)
[2018-03-09 10:06] LABS: PLATELET COUNT 365 10x3/uL (130-400)
[2018-03-09 10:11] LABS: ANION GAP 12.4 mmol/L (8-16); CALCIUM 9.5 mg/dL (8.5-10.1); CARBON DIOXIDE 29.1 mmol/L (21.0-32.0); CREATININE - SERUM 1.7 mg/dL (0.6-1.3); POTASSIUM - SERUM 4.5 mmol/L (3.5-5.1)
[2018-03-09 16:35] VITALS: BP 157/55; Ht 172.7 cm; Wt 78.0 kg
[2018-03-09 20:00] VITALS: BP 107/27
[2018-03-10] VITALS: BP 97/28
[2018-03-10 04:00] VITALS: BP 125/53
[2018-03-10 07:59] VITALS: BP 115/46
[2018-03-10 12:08] VITALS: BP 124/42
[2018-03-10 13:15] VITALS: BP 102/46
[2018-03-10 13:28] VITALS: BP 106/51
== END 2018-03-10 17:29 | disposition home or self-care (01) ==
LOC: D.CATH 08:44 → D.M2 15:47 → D.CATH 03-10 17:29
PROVIDERS: Internal Medicine Interventional Cardiology
DX: I25.119 Atherosclerotic heart disease of native coronary artery with unspecified angina pectoris (principal); E78.5 Hyperlipidemia, unspecified; I10 Essential (primary) hypertension; Z01.812 Encounter for preprocedural laboratory examination; R06.09 Other forms of dyspnea
CPT/HCPCS: 93459; 92978; 92920; C9600; C9604

== ENCOUNTER 2019-07-01 11:03 | Outpatient (CLI) | payer MEDICARE, BC ==
[~2019-07-01 11:03] MED LIST changes: +ALBUTEROL SULF8.5 GM INH; +FAMOTIDINE10 MG PO; +MUCINEX DM ER1 EAC1 PO; +OXYCONTIN15 MG PO; -PEPCID20 MG PO; -PROAIR HFA8.5 GM INH; +TENORMIN50 MG PO
[2019-07-01] MEDS ORDERED: ROXICODONE15 MG PO (16:08)
[2019-07-01] MEDS ORDERED: KEFLEX500 MG PO (16:09)
[2019-07-01 16:34] VITALS: BMI 26.6
== END 2019-07-01 13:20 | disposition home or self-care (01) ==
LOC: D.OPS 11:03
PROVIDERS: ATTEND Internal Medicine Interventional Cardiology
DX: I25.110 Atherosclerotic heart disease of native coronary artery with unstable angina pectoris (principal)

== ENCOUNTER 2019-07-01 11:03 | Inpatient (IN) | payer MEDICARE, BC ==
[2019-07-01] VITALS (16 sets, daily range): BP systolic 108–178; BP diastolic 55–81; Ht 172.7 cm; Wt 79.5 kg
[~2019-07-01] VITALS: Ht 172.7 cm; Wt 79.5 kg
--- NOTE | ~2019-07-01 | HEMODYNAMI ---
PATIENT:TRACY WEST MEDICAL RECORD: [id number] : 42 LOCATION:[address] [facility]# [id number] ADMISSION DATE: 07/01/19 Generatedon:07/01/201915:51 Patient name: TRACY WSET Patient #: [id number] SSN: [id number] : 1940 Date of study: 07/01/2019 Page: Of Hemodynamic Procedure Report Patient Data Patient Demographics Procedure consent was obtained First Name: TRACY Gender: Male Last Name: JENNA : 1940 Middle Initial: R Age: 79 year(s) Patient #: [id number] Race: SSN: [id number] Additional ID: [id number] Contact details [address]: [address] [place] [address] [place] State: [place] City: [place] Zip code: [address] Past Medical History History of disease Date Diagnosis Comments CAD Allergies Allergen Reaction Date Comments Reported Other allergy 11/27/2015 TALWIN Other allergy 12/12/2016 TALWIN, ARITHERMYCIN Other allergy 05/29/2017 Talwin Other allergy 06/02/2017 TALWIN Other allergy 03/09/2018 TALWIN Admission Admission Data Admission Date: 07/01/2019 Admission Time: 13:20 Room #: .2132 Procedure Procedure Types Cath Procedure Diagnostic Procedure [facility] w/Coronaries w/Grafts Sedation Charges Moderate Sedation up to 30 minutes PCI Procedure Coronary Stent Coronary Stent Initial Coronary Atherectomy Atherectomy w/Stent Coronary Initial Procedure Description Procedure Date Procedure Date: 07/01/2019 Procedure Start Time: 15:19 Procedure End Time: 15:45 Procedure Staff Name Function Magno Roque MD Performing Physician Denae Stephenson RT Monitor Jose Luis Gomez RT Scrub Luis Sharp RN Nurse Procedure Data Cath Procedure Fluoroscopy Diagnostic fluoroscopy Total fluoroscopy Time: 7.3 time: 7.3 min min Diagnostic fluoroscopy Total fluoroscopy dose: 770 dose: 770 mGy mGy Contrast Material Contrast Material Type Amount (ml) Isovue 300 121 Entry Location Entry Primary Successful Side Size Upsize Upsize Entry Closure Succes sful Closure Location (Fr) 1 (Fr) 2 (Fr) Remarks Device Remarks Femoral Right 5 Fr 6 Fr Exoseal artery Short Estimated blood loss: 5 ml Diagnostic catheters Device Type Used For End Catheter Placement MULTIPACK Pigtail 5 Fr LV Angiography catheter MULTIPACK JL 4.0 5Fr Left Coronary catheter Angiography MULTIPACK 3DRC 5Fr Multi-vessel catheter Angiography DIAGNOSTIC AR2 MOD 5 Fr SVG Angiography catheter ([id number]) Procedure Complications No complications Procedure Medications Medication Administration Route Dosage 0.9% NaCl I.V. 100 ml/hr Oxygen etCO2 Nasal cannula 2 l/min Heparin Flush Bag added to field 2 bags (1000units/500ml NS) Lidocaine 2% added to field 20 Versed I.V. 1 mg Fentanyl I.V. 50 mcg Versed I.V. 1 mg Fentanyl I.V. 50 mcg Versed I.V. 1 mg Heparin Bolus I.V. 5000 units Versed I.V. 1 mg Hemodynamics Rest Heart Rate: 92 (bpm) Pressure Samples Time Site Value (mmHg) Purpose Heart Use Rate(bpm) 15:20 LV 118/9,24 Snapshot 86 Snapshots Pre Cath Intra NCS Post Cath Vital Signs Time Heart Resp SPO2 etCO2 NIBP (mmHg) Rhythm Pain Sedation Rate (ipm) (%) (mmHg) Status Level (bpm) 15:08:50 88 18 100 35.2 151/83(117) NSR 0 (11) 10(A) , No pain 15:13:08 83 17 97 27.7 136/76(102) NSR 0 (11) 10(A) , No pain 15:17:26 81 14 96 20.2 119/65(87) NSR 0 (11) 10(A) , No pain 15:21:37 87 17 95 14.9 110/66(93) NSR 0 (11) 10(A) , No pain 15:25:42 83 14 95 37.5 114/64(89) NSR 0 (11) 10(A) , No pain 15:29:52 83 17 95 20.2 107/59(84) NSR 0 (11) 10(A) , No pain 15:33:58 84 19 96 32.9 116/66(85) NSR 0 (11) 10(A) , No pain 15:38:04 85 19 96 33.7 115/68(92) NSR 0 (11) 10(A) , No pain 15:42:09 83 19 96 19.4 132/74(108) NSR 0 (11) 10(A) , No pain 15:48:26 85 15 94 34.4 124/68(101) NSR 0 (11) 10(A) , No pain Medications Time Medication Route Dose Verified Delivered Reason Notes Effectiveness by by 15:08:13 0.9% NaCl I.V. 100 Luis Luis Per physician ml/hr Aron Sharp RN RN 15:08:22 Oxygen etCO2 2 Luis Luis for low 02 sats Nasal l/min Aron Sharp cannula RN RN 15:08:32 Heparin Flush added 2 Luis Luis used for Bag to bags Aron Sharp procedure (1000units/500ml RN RN NS) 15:08:42 Lidocaine 2% added 20ml Luis Luis for local to vial Aron Sharp anesthetic field RN RN 15:14:23 Versed I.V. 1 mg Luis Luis for sedation Aron Sharp RN RN 15:14:32 Fentanyl I.V. 50 Luis Luis for sedation mcg Aron Sharp RN RN 15:18:44 Versed I.V. 1 mg Luis Luis for sedation Aron Sharp RN RN 15:18:50 Fentanyl I.V. 50 Luis Luis for sedation mcg Aron Sharp RN RN 15:20:13 Versed I.V. 1 mg Luis Luis for sedation Aron Sharp RN RN 15:27:10 Heparin Bolus I.V. 5000 Luis Luis for units Aron Sharp anticoagulation RN RN 15:38:14 Versed I.V. 1 mg Luis Luis for sedation Aron Sharp RN tomato grader Log Time Note 14:40:20 Luis Sharp RN sent for patient. Start room use. 14:55:59 Informed consent obtained and on chart 14:56:04 Diagnostic Cath Status : Elective 14:56:21 Time tracking: Regular hours (M-F 7:00 - 5:00) 14:56:25 Plan of Care:Hemodynamics will remain stable., Cardiac rhythm will remain stable., Comfort level will be maintained., Respiratory function will remain adequate., Patient/ family verbilizes understanding of procedure., Procedure tolerated without complication., Recovers from procedure without complications.. 14:56:41 ACC Patient presents with Unstable Angina CCS Anginal Class 4--Inability to carry out any physical activity w/o angina. Angina may occur at rest. 14:56:54 Patient received from ED to CCL 2 Alert and oriented. Tansferred to table in Supine position. 14:56:55 Warm blankets applied, and brad hugger turned on for patient comfort. 14:56:55 Correct patient and procedure confirmed by team. 14:56:56 ECG and BP/O2 sat monitors applied to patient. 15:04:18 Baseline sample Acquired. 15:04:18 Vital chart was started 15:04:22 Full Disclosure recording started 15:04:27 H&P Date Dictated: 07/01/2019 New H&P dictated by physician.. 15:04:28 Pre-procedure instructions explained to patient. 15:04:29 Pre-op teaching completed and patient verbalized understanding. 15:04:32 Family in waiting room. 15:04:34 Patient NPO since Midnight. 15:04:36 Is the patient allergic to Iodine/contrast media? No. 15:04:37 Was the patient premedicated? No 15:04:38 Is patient on blood thinner?Yes 15:04:41 ACC The patient was administered the following blood thiners within the last 24 hours: ACCPlavix 15:04:43 Patient diabetic? No. 15:04:47 Previous problem with sedation/anesthesia? No ? 15:05:25 Snore? Yes 15:05:26 Sleep apnea? No 15:05:27 Deviated septum? No 15:05:29 Opens mouth fully? Yes 15:05:30 Sticks out tongue? Yes 15:05:42 Airway obstruction? Yes pulmonary fibrosis 15:05:47 Dentures? Yes out 15:05:51 Pre procedure: right dorsailis pedis pulse 1+ Palpable, but thready & weak; easily obliterated 15:05:54 Pre procedure: left dorsailis pedis pulse 1+ Palpable, but thready & weak; easily obliterated 15:05:56 Patient pain scale 0/10 ?. 15:06:02 IV patent on arrival in right antecubital with 0.9% NaCl at KVO. 15:06:05 Lab results completed and on chart. 15:06:10 Right groin area was prepped with chlora-prep and draped in sterile fashion 15:06:11 Alarms reviewed by R. N. 15:06:11 Sharps counted by scrub and verified by R.N. 15:08:13 0.9% NaCl 100 ml/hr I.V. was administered by Luis Sharp RN; Per physician; 15:08:22 Oxygen 2 l/min etCO2 Nasal cannula was administered by Luis Sharp RN; for low 02 sats; 15:08:32 Heparin Flush Bag (1000units/500ml NS) 2 bags added to field was administered by Luis Sharp RN; used for procedure; 15:08:42 Lidocaine 2% 20ml vial added to field was administered by Luis Sharp RN; for local anesthetic; 15:09:38 3a) 45-59 Moderately reduced kidney function. 15:09:57 Maximum allowable contrast dose (3.7 X eGFR X 0.75)129 ml. 15:10:23 Physician arrived 15::23 --------ALL STOP TIME OUT------ 15:10:24 Final Timeout: patient, procedure, and site verified with staff and physician. All members of the team are in agreement. 15:10:25 Right groin site verified by team. 15:10:29 Fire Safety Assessment: A--An alcohol-based skin anteseptic being used preoperatively., C--Open oxygen or nitrous oxide is being used., D--An ESU, laser, or fiber-optic light is being used. 15:10:32 Physical assessment completed. ASA score P 2 - A patient with mild systemic disease as per Magno Roque MD. 15:10:38 Sedation plan: IV Moderate Sedation Medication:Versed, Fentanyl 15:11:15 Use device set Femoral Dx 15:11:18 ACIST Syringe (38645) opened to sterile field. 15:11:18 Bag Decanter () opened to sterile field. 15:11:19 Medline Cath Pack ([id number]) opened to sterile field. 15:11:20 ACIST Hand Control (59352) opened to sterile field. 15:11:20 ACIST Manifold (01208) opened to sterile field. 15:11:21 DIAGNOSTIC Multipack 5Fr catheter set (CF2753) opened to sterile field. 15:11:21 Tegaderm 4 x 4 (1626W) opened to sterile field. 15:11:22 EMERALD Guide Wire (324-108) opened to sterile field. 15:11:23 SHEATH 5FR [place] (XRL455) opened to sterile field. 15:14:23 Versed 1 mg I.V. was administered by Luis Sharp RN; for sedation; 15:14:32 Fentanyl 50 mcg I.V. was administered by Luis Sharp RN; for sedation; 15:18:13 Procedure started. 15:18:44 Versed 1 mg I.V. was administered by Luis Sharp RN; for sedation; 15:18:50 Fentanyl 50 mcg I.V. was administered by Luis Sharp RN; for sedation; 15:19:08 Local anesthetic to right femoral artery with Lidocaine 2% by Magno Roque MD.INITIAL ACCESS ONLY 15:19:17 A 5 Fr sheath was inserted into the Right Femoral artery 15:19:49 A MULTIPACK Pigtail 5 Fr catheter was advanced over the wire and used for LV Angiography. 15:20:13 Versed 1 mg I.V. was administered by Luis Sharp RN; for sedation; 15:20:38 LV hemodynamics recorded. 15:20:39 LV gram done using IBRAHIM 15:20:42 Injector settings: Ml/sec: 5, Volume: 15, 15:20:49 EF : 40 % 15:20:56 Catheter removed. 15:21:00 A MULTIPACK JL 4.0 5Fr catheter was advanced over the wire and used for Left Coronary Angiography. 15:21:34 LCA angiography performed. 15:21:37 Injector settings: Ml/sec: 3, Volume: 6, 15:21:43 Catheter removed. 15:21:56 A MULTIPACK 3DRC 5Fr catheter was advanced over the wire and used for Multi-vessel Angiography. 15:22:27 HARTLEY angiography performed. 15:23:14 RCA angiography performed. 15:23:18 Injector settings: Ml/sec: 3, Volume: 6, 15:23:26 Catheter removed. 15:23:34 A DIAGNOSTIC AR2 MOD 5 Fr catheter ([id number]) was advanced over the wire and used for SVG Angiography. 15:24:07 CHOICE PT Extra Support 182cm wire ([id number]) opened to sterile field. 15:24:08 INFLATOR Merit BasixCompak (XK8465) opened to sterile field. 15:24:09 SHEATH 6FR [place] (RNX063) opened to sterile field. 15:24:41 SVG to Circ angiography performed. 15::45 SVG to Diag angiography performed. 15:25:08 Catheter removed. 15:25:09 Proceeding to intervention. 15:27:10 Heparin Bolus 5000 units I.V. was administered by Luis Sharp RN; for anticoagulation; 15:27:14 GUIDE 6FR RAVINDER 90 catheter ([id number]) opened to sterile field. 15::22 Sheath upsized to a 6 Fr Short. 15::40 ACC Pre-intervention XU Flow is 3. 15:27:40 Pre PCI Site: HARTLEY Graft mLAD has 95% stenosis. 15:27:47 6 Fr ravinder 90 guide catheter was inserted over the wire 15::55 choicept wire advanced. 15:28:49 Place stent Inflation Number: 1 A ANTONIO RX 2.5 x 12 stent ([id number]) was prepped and advanced across the HARTLEY -> Mid LAD 95. The stent was deployed at 17 SANDRA for 0:10 (min:sec) 0. 15:29:03 Inflation number: 2 The stent balloon was then re-inflated across the HARTLEY -> Mid LAD 0 to 17 SANDRA for 0:10 (min:sec) . 15:30:16 Stent catheter was removed intact over wire. 15:30:27 Place stent Inflation Number: 3 A ANTONIO RX 2.0 x 22 stent ([id number]) was prepped and advanced across the HARTLEY -> Mid LAD . The stent was deployed at 19 SANDRA for 0:10 (min:sec) . 15:31:16 Stent catheter was removed intact over wire. 15:31:19 Wire removed. 15:31:19 Guide catheter removed. 15:31:20 Post PCI Site: HARTLEY Graft mLAD has 0% stenosis. 15:31:29 GUIDE 6FR AR 2.0 SH catheter ([id number]) opened to sterile field. 15:31:58 Pre PCI Site: [place] mRCA has 90% stenosis. 15:31:59 ACC Pre-intervention XU Flow is 3. 15:32:07 6 Fr ar 2 sh guide catheter was inserted over the wire 15:33:17 choice pt wire advanced. 15:34:18 Inflation number: 1 The stent balloon was then re-inflated across the Mid RCA 90 to 21 SANDRA for 0:10 (min:sec) 0. 15:34:23 Stent catheter was removed intact over wire. 15:34:36 LASER ELCA 0.9 Rx atherectomy catheter (581481) opened to sterile field. 15:35:29 Laser pass to mRCA with Fluence of 80 and Rate of 40. 15:36:31 ACT drawn and resulted at 277 seconds. (normal therapeutic range 180-240 seconds). 15:38:14 Versed 1 mg I.V. was administered by Luis Sharp RN; for sedation; 15:39:37 Laser catheter removed. 15:41:05 Place stent Inflation Number: 1 A ANTONIO RX 2.5 x 38 stent ([id number]) was prepped and advanced across the Dist RCA 90. The stent was deployed at 19 SANDRA for 0:10 (min:sec) 0. 15:41:11 Inflation number: 2 The stent balloon was then re-inflated across the Dist RCA 0 to 23 SANDRA for 0:10 (min:sec) . 15:41:52 Stent catheter was removed intact over wire. 15:41:53 Wire removed. 15:41:53 Guide catheter removed. 15:42:23 EXOSEAL 6Fr (EX600) opened to sterile field. 15:42:33 Sheath removed intact; hemostasis achieved with Exoseal to the Right Femoral artery. 15:42:54 ACC Post-intervention XU Flow is 3. 15:43:11 Procedure ended.(Physican Out) 15:43:29 Fluoroscopy time 07.30 minutes. 15:43:32 Flurop Dose total: 770 15:43:32 Fluoroscopy dose: 770 mGy 15:43:38 Dose Area Product 72951 mGy/cm. 15:43:43 Contrast amount:Isovue 300 121ml. 15:43:45 Sharps counted by scrub and verified by R.N. 15:43:47 Insertion/operative site no bleeding no hematoma. 15:43:50 Post-op/insertion site Right Femoral artery dressed using a 4 x 4 and Tegaderm. 15:43:53 Post procedure rhythm: unchanged. 15:43:56 Estimated blood loss: 5 ml 15:43:58 Post procedure instruction explained to patient.Patient verbalizes understanding. 15:43:58 Patient needs reinforcement of post procedure teaching. 15:45:26 Procedure type changed to Cath procedure, Diagnostic procedure, LHC, LHC w/Coronaries w/Grafts, Sedation Charges, Moderate Sedation up to 30 minutes, PCI procedure, Coronary Stent, Coronary Stent Initial, Coronary Atherectomy, Atherectomy w/Stent Coronary Initial 15:45:28 Procedure and supply charges have been captured, reviewed, submitted and are correct. 15:45:35 Procedure Complication : No complications 15:45:40 Vital chart was stopped 15:45:41 See physician's report for complete and final results. 15:45:48 Report given to Med II. 15:45:50 Patient transfered to Med II with Stretcher. 15:45:53 Procedure ended. 15:45:53 Full Disclosure recording stopped 15:46:00 ACC-PCI Only Patient was given prescriptions, or instructed by Magno Roque MD to start/continue the following medications upon discharge: Plavix 15:46:02 End room use (Document Last) 15:48:21 FEMSTOP Gold (U85322) opened to sterile field. 15:51:22 Femstop placed over the right femoral artery at 150 mmHg. Hemostasis achieved. Intervention Summary Intervention Notes Time ActionType Lesion and Equipment Used Action# Pressure Duration Attributes 15:28:49 Place stent HARTLEY -> Mid ANTONIO RX 2.5 x 1 17 00:10 LAD 12 stent ([id number]) 15:29:03 Reinflate HARTLEY -> Mid ANTONIO RX 2.5 x 2 17 00:10 stent LAD 12 stent balloon ([id number]) 15:30:27 Place stent HARTLEY -> Mid ANTONIO RX 2.0 x 3 19 00:10 LAD 22 stent ([id number]) 15:34:18 Reinflate Mid RCA ANTONIO RX 2.0 x 1 21 00:10 stent 22 stent balloon ([id number]) 15:41:05 Place stent Dist RCA ANTONIO RX 2.5 x 1 19 00:10 38 stent ([id number]) 15:41:11 Reinflate Dist RCA ANTONIO RX 2.5 x 2 23 00:10 stent 38 stent balloon ([id number]) Device Usage Item Name Manufacture Quantity Catalog Number Hospital Part Current M inimal Lot# / Charge Number Stock Stock Serial# Code ACIST Syringe Acist 1 55899 750136 119595 585191 2 0 (39076) Medical Systems Inc Bag Decanter Microtek 1 108159 17690 667080 5 () Medical Inc. Medline Cath Medline 1 [id number] 210941 41154 514315 5 Pack ([id number]) ACIST Hand Acist 1 39443 251083 171972 637122 5 Control Medical (07723) Systems Inc ACIST Manifold Acist 1 60885 202371 823296 214419 5 (69360) Medical Systems Inc DIAGNOSTIC Cardinal 1 HQ4292 974301 53420 078895 3 0 Multipack 5Fr Health catheter set (SG0676) Tegaderm 4 x 4 3M 1 1626W 880206 340400 908086 5 (1626W) EMERALD Guide Cardinal 1 502-455 968628 614750 441472 5 Wire (502-455) Health SHEATH 5FR Terumo 1 LJT041 966194 729040 368725 5 [place] (IYT676) MULTIPACK Cardinal 1 324662 5 Pigtail 5 Fr Health catheter MULTIPACK JL Cardinal 1 036980 5 4.0 5Fr Health catheter MULTIPACK 3DRC Cardinal 1 423442 5 5Fr catheter Health DIAGNOSTIC AR2 Cardinal 1 509188P 253271 904506 301166 2 0 MOD 5 Fr Health catheter (673543J) CHOICE PT Langeloth 1 [id number] 994379 994668 112987 5 Extra Support Scientific 182cm wire (5264052O5) INFLATOR Merit Merit 1 DQ6945 536970 887496 233485 1 5 [place] (FE2761) SHEATH 6FR Terumo 1 ZNQ166 601695 868485 146787 4 0 [place] (FUS887) GUIDE 6FR RAVINDER Medtronic 1 GG5IAPN 450947 61132 952956 1 90 catheter (DK6PBJY) ANTONIO RX 2.5 x Medtronic 1 [id number] 873792 4311027 094158 5 [id number] 12 stent ([id number]) ANTONIO RX 2.0 x Medtronic 1 [id number] 236755 9137116 560923 5 [id number] 22 stent ([id number]) GUIDE 6FR AR Medtronic 1 [id number] 130240 80676 148301 1 2.0 SH catheter ([id number]) LASER ELCA 0.9 Reji 1 110-004 518520 508165 231567 5 Rx atherectomy Healthcare catheter (146809) (342148) ANTONIO RX 2.5 x Medtronic 1 [id number] 805942 6812093 683732 5 [id number] 38 stent ([id number]) EXOSEAL 6Fr Cardinal 1 EX600 091793 166360 450384 1 0 (EX600) Health FEMSTOP Gold St Suraj 1 [id number] 326674 815973 474890 5 ([id number]) Signature Audit [place] Stage Time Signature Unsigned Intra-Procedure 07/01/2019 Denae Stephenson 3:51:50 PM RT(R) Signatures Performing Physician : Signature : Magno Roque MD Date : Time : Monitor : Denae Stephenson RT Signature : Date : Time : Nurse : Luis Sharp Signature : RN Date : Time : [facility] [address] [place] [address]
[2019-07-01 11:29] LABS: BASOPHILS 0.3 % (0-2); EOSINOPHILS 1.5 % (0-7); HEMATOCRIT 42.5 % (42.0-54.0); HEMOGLOBIN 15.4 g/dL (13.5-17.5); IMMATURE GRANULOCYTES 0.3 % (0-5); LYMPHOCYTES 15.7 % (15-50); MCH 32.6 pg (26.0-34.0); MCHC 36.2 g/dL (31.0-37.0); MCV 89.9 fL (80.0-100.0); MEAN PLATELET VOLUME 9.1 fL (7.4-10.4); MONOCYTES 9.6 % (2-11); NEUTROPHILS 72.6 % (40-80); RBC 4.73 10x6/uL (4.20-6.10); RDW 13.3 % (11.5-14.5); WBC 10.9 10x3/uL (4.8-10.8)
[2019-07-01 11:30] LABS: PLATELET COUNT 249 10x3/uL (130-400)
[2019-07-01 11:41] LABS: APTT 32.9 SECONDS (22.8-39.4); INR 1.08 (0.85-1.17); PROTIME 13.5 SECONDS (11.6-15.0)
[2019-07-01 11:42] LABS: ALBUMIN 3.6 g/dL (3.4-5.0); ALKALINE PHOSPHATASE 69 U/L (46-116); ALT (SGPT) 25 U/L (10-68); CALC OSMOLALITY 279 mosm/kg (275-300); CALCIUM 8.8 mg/dL (8.5-10.1); CHLORIDE - SERUM 102 mmol/L (98-107); CREATININE - SERUM 1.6 mg/dL (0.6-1.3); GLUCOSE 116 mg/dL (74-106); POTASSIUM - SERUM 4.1 mmol/L (3.5-5.1); PROTEIN - SERUM 7.6 g/dL (6.4-8.2); SODIUM 139 mmol/L (136-145); UREA NITROGEN 16 mg/dL (7-18); eGFR NON AFRICAN AMERICAN 45 mL/min (90-120)
[2019-07-01 11:51] LABS: CKMB 1.3 U/L (0.0-3.6); CREATINE KINASE 94 UL (21-232); MAGNESIUM - SERUM 2.2 mg/dL (1.8-2.4)
[2019-07-01 11:52] LABS: TROPONIN-I < 0.017 ng/mL (0.000-0.060)
--- NOTE | 2019-07-01 14:20 | NUR ---
NURSING HOME ASSISTANT CALLED TO PREP PT
--- NOTE | 2019-07-01 14:45 | NUR ---
TRANSPORTED TO MORTGAGE LOAN COORDINATOR. COND TION STABLE
--- NOTE | 2019-07-01 15:45 | HP ---
PATIENT: TRACY WEST MEDICAL RECORD: [id number] ACCOUNT: [id number] LOCATION:[address] : 42 ADMISSION DATE: 07/01/19 PCP: PARKER ONTIVEROS MD HISTORY AND PHYSICAL EXAMINATION DIAGNOSES: 1. Unstable angina. 2. Coronary artery disease. 3. Previous coronary bypass graft surgery. 4. Multivessel percutaneous transluminal coronary angioplasty stent. 5. Chronic obstructive pulmonary disease. 6. Smoking history. 7. Hypertension. HISTORY OF PRESENT ILLNESS: This is a gentleman who presents with unstable anginal symptomatology. He has been having episodes of chest pain, it increased. He is now at class IV. He has a history of coronary artery disease, multivessel PTCA stent, the last being in February of 2018. PHYSICAL EXAMINATION: CONSTITUTIONAL/GENERAL APPEARANCE: Well nourished, well developed, appears stated age. EYES: Lids and conjunctivae noninjected. No discharge. No pallor. ENT: Lips within normal limit. No cyanosis. No pallor. NECK: Carotid arteries, bilateral normal upstroke. No bruits. No thrills. No jugular venous pressure or distention. CERVICAL LYMPH NODES: Nontender. Nonenlarged. THYROID: Not enlarged. No nodules. CARDIOVASCULAR: Precordial exam, nondisplaced. No heaves or pericardial thrills. Rate and rhythm, regular. Heart sounds, normal S1, normal S2. No S3, no gallop, no rub. Systolic murmur, not heard. Diastolic murmur, not heard. RESPIRATORY: Respiratory effort, unlabored. Normal curvature. No thoracic deformity. No chest wall tenderness. Percussion, resonant. Auscultation, clear. No wheezes, no rales, no rhonchi. ABDOMEN: Soft, nondistended, nontender. No abdominal pain, no vomiting and normal appetite. MUSCULOSKELETAL: No joint tenderness, normal gait, normal tone. SKIN: Warm and dry. OVERALL IMPRESSION: Class IV unstable angina in a patient with coronary artery disease, multivessel percutaneous transluminal coronary angioplasty stent, bypass surgery, and continued chest pain, most likely has hemodynamically significant coronary artery disease. Despite medical management in the ER, he just continues to have episodic chest pain. We will proceed with coronary angiography. TRANSINT:[id number] Voice Confirmation ID: [id number] DOCUMENT ID: [id number] HISTORY AND PHYSICAL [id number] TRACY WEST, LIZZY JONES at 1545 CC: [id number] DICTATION DATE: 07/01/19 1322 WORD PROCESSING OPERATOR: 07/01/19 1346 ADM IN [facility] [address] [place] [id number]
--- NOTE | 2019-07-01 15:51 | NUR ---
SPOKE WITH CELESTINO FROM HYDRO PNEUMATIC TESTER. HE STATES DR. WILSON WENT IN RIGHT FEMORAL AND CLOSED 6 FRNECH EXOCIL. PT HAD INSTANT RESTENOSIS IN THE LAD AND RCA. X2 STENTS WERE PLACED IN THE LAD AND THE RCA WAS LASERED AND ADDITIONAL STENT WAS PLACED. PT RECEIVED 5000 UNITS OF HEPARIN, 4MG VERSED, 100MCG OF FENTANYL. PT WILL DC TOMORROW.
[2019-07-01] MEDS ORDERED: ROXICODONE15 MG PO (16:08)
[2019-07-01] MEDS ORDERED: KEFLEX500 MG PO (16:09)
--- NOTE | 2019-07-01 16:12 | NUR ---
PT ARRIVED FROM CERTIFIED SHORTHAND REPORTER VIA BED. ALERT AND ORIENTED. O2 AT 2L VIA NC. VS STABLE. RIGHT GROIN HAS FEM STOP AND HAS NO BLEEDING AND SHOWS NO S/S OF HEMATOMA. PP CHECKED. ASSISTED PT WITH URINAL. PT'S AT BEDSIDE. MED REC AND ADMISSION HX COMPLETED. RN TO DO ADMISSION ASSESSMENT. PT LAYING FLAT. BED LOW. CL IN REACH.
--- NOTE | 2019-07-01 16:35 | NUR ---
PT AND PT'S FMAILY MEMBER WANTING TO KNOW IF DR. WILSON WAS GOING TO COME SEE THEM. PAGED DR. WILSON.
--- NOTE | 2019-07-01 16:44 | NUR ---
SPOKE WITH DR. WILSON AND HE STATES TO RESUME PT'S HOME MEDS AND THAT PT OR HIS FAMILY MEMBER WAS NOT IN THE ROOM WHEN HE WENT TO SPEAK WITH HIM. HE STATED FOR ME TO PHONE TRANSFER HIM TO PT'S ROOM. TRANSFERED HIM TO PT'S ROOM.
--- NOTE | 2019-07-01 16:50 | NUR ---
DR. WILSON STATED THAT PT DOES NOT HAVE TO WAIT FOR HIM TO NMAKE AM ROUNDS BEFORE BEING DC'D. HE STATES HE ALREADY PUT DC ORDER IN COMPUTER.
--- NOTE | 2019-07-01 17:28 | NUR ---
RELEASED AIR FROM FEM STOP. SLIGHT BLEEDING NOTED. WILL RECHECK IN 15 MINUTES.
--- NOTE | 2019-07-01 17:54 | NUR ---
RELEASED REST OF AIR FROM FEM STOP. NO BLEEDING NOTED. REMOVED FEM STOP. PLACED 4X4 AND TEGADERM ON GROIN INSERTION SITE. WILL CONTINUE TO MONITOR. PP CHECKED. GROIN SOFT TO PALPATION AND SHOWS NO S/S OF HEMATOMA.
--- NOTE | 2019-07-01 18:30 | NUR ---
RIGHT GROIN SOFT, SHOWS NO S/S OF HEMATOMA. DRESSING C/D/I. PP CHECKED. WILL CONTINUE TO MONITOR. PT HAS NO FURTHER NEEDS AT THIS TIME.
--- NOTE | 2019-07-02 00:42 | NUR ---
INITIAL ROUNDS COMPLETED AT 1910 HRS. PT DENIED ANY DISCOMFORT. R GROIN CLEAN, DRY AND INTACT WITHOUT SWELLING, BRUISING OR BLEEDING. ASSESSMENT COMPLETED AT 2030 HRS. VSS. IV TO RAC WITH NS AT 100CC/HR. IV PATENT. ALERT AND ORIENTED TO PERSON,PLACE AND TIME. RUBALCAVA. SR PER CM HR 81. NO CHANGE TO R GROIN NOTED. BEDREST UP AT 2039 HRS. HOB RAISED 30 DEGREES. NO CHANGES NOTED. IV CHANGED TO SL. PT VOIDED 300CC OF YELLOW URINE. PM MEDS GIVEN. PT CURRENTLY RESTING WITH EYES CLOSED. RESP EVEN AND REGULAR. NO CHANGES TO R GROIN NOTED. PALPABLE PEDAL PULSES. SR UP X2, CALL LIGHT WITHIN REACH.
--- NOTE | 2019-07-02 02:16 | NUR ---
PT RESTING WITH EYES CLOSED. RESP EVEN AND REGULAR. SR UP X2, CALL LIGHT WITHIN REACH.
--- NOTE | 2019-07-02 04:01 | NUR ---
PT AWAKE; DENIES ANY DISCOMFORT. NO CHANGES TO R GROIN NOTED. PALPABLE PERIPHERAL PULSES. SR UP X2,CALL LIGHT WITHIN REACH.
[2019-07-02 04:21] VITALS: BP 119/56
--- NOTE | 2019-07-02 06:09 | NUR ---
VSS THROUGHOUT NIGHT. SR PER CM. PT STATED OXY CONTROLLED CHRONIC BACK PAIN. NO CHANGES TO R GROIN NOTED. PALPABLE PERIPHERAL PULSES. NEEDS MET; WILL CONTINUE TO MONITOR.
[2019-07-02 06:17] LABS: BASOPHILS 0.5 % (0-2); EOSINOPHILS 3.2 % (0-7); HEMATOCRIT 37.6 % (42.0-54.0); IMMATURE GRANULOCYTES 0.2 % (0-5); LYMPHOCYTES 23.5 % (15-50); MCH 31.6 pg (26.0-34.0); MCHC 34.6 g/dL (31.0-37.0); MCV 91.5 fL (80.0-100.0); MEAN PLATELET VOLUME 9.1 fL (7.4-10.4); MONOCYTES 10.7 % (2-11); NEUTROPHILS 61.9 % (40-80); PLATELET COUNT 222 10x3/uL (130-400); RBC 4.11 10x6/uL (4.20-6.10); RDW 13.6 % (11.5-14.5); WBC 8.7 10x3/uL (4.8-10.8)
[2019-07-02 06:27] LABS: ALBUMIN 2.9 g/dL (3.4-5.0); BILIRUBIN - TOTAL 0.53 mg/dL (0.2-1.3); CALCIUM 8.3 mg/dL (8.5-10.1); CARBON DIOXIDE 25.9 mmol/L (21.0-32.0); CREATININE - SERUM 1.5 mg/dL (0.6-1.3); PROTEIN - SERUM 6.1 g/dL (6.4-8.2)
[2019-07-02 06:28] LABS: ANION GAP 13.9 mmol/L (8-16); POTASSIUM - SERUM 5.8 mmol/L (3.5-5.1)
--- NOTE | 2019-07-02 07:40 | NUR ---
PRESENTS IN WHEELCHAIR THROUGH HALLWAY.RR EVEN AND UNLABORED. DENIES NEEDS AT THIS TIME. WILL CONTINUE TO MONITOR.
[2019-07-02 08:45] VITALS: BP 103/64
--- NOTE | 2019-07-02 12:12 | NUR ---
D/C INSTRUCTIONS REVIEWED WITH PT AND SPOUSE. VERBALIZED UNDERSTANDING AND NO FURTHER QUESTIONS. ALL BELONGINGS SENT WITH PT. HEART MONITOR REMOVED AND GIVEN BACK TO INTRANET SPECIALIST. IV D/C WITH CATHETER TIP INTACT. PT WHEELED OUT VIA WHEELCHAIR TO PERSONAL VEHICLE.
--- NOTE | 2019-07-04 09:20 | MORECARE ---
CASE MANAGEMENT DISCHARGE SUMMARY PATIENT: TRACY WEST UNIT: [id number] ADM DATE: 07/01/19 AGE: 79 : [birth year] SEX: M ROOM/BED: D.2132 AUTHOR: EDIE HENNESSY PHYSICIAN: REFERRING PHYSICIAN: LIZZY WILSON MD DATE OF SERVICE: 07/04/19 Discharge Plan Patient Name: TRACY WEST [facility] [facility] 1940 Planned Disposition: Home Anticipated Discharge Date: 07/02/19 Discharge Date: 07/02/2019 Expected LOS: 1 Initial Reviewer: [email or web address] Initial Review Date: 07/04/2019 Generated: 07/04/19 10:19 am Patient Name: TRACY WEST Page 70078 at 0920 All edits/amendments must be made on the electronic document DICTATION DATE: 07/04/19918 IDEA WORKER: ROBBIE 07/04/19918 RPT#: [id number] DC DATE:07/02/19 STATUS: DIS IN [facility] [address] [place] [address] END OF REPORT
--- NOTE | 2019-07-06 14:31 | OP ---
PATIENT NAME: TRACY WEST MEDICAL RECORD: [id number] :[birth year] LOCATION:D.M2 D.2132 ADMISSION DATE:07/01/19 SURGEON: LIZZY WILSON MD DATE OF OPERATION: 07/01/2019 PROCEDURES: 1. PTCA stent LAD. 2. PTCA stent RCA. 3. Laser atherectomy RCA. 4. Left heart catheterization. 5. Selective coronary angiography. 6. Vein graft angiography. 7. HARTLEY angiography. INDICATION: Unstable angina. PROCEDURE IN DETAIL: After informed consent was obtained and after detailed description of risks, benefits as well as alternative therapies, the patient elected to proceed with angiogram and angioplasty. The right femoral area was prepped and draped in normal sterile fashion. Right femoral artery was cannulated via modified Seldinger technique with placement of 6-Luxembourgish sheath. All catheters exchanged through this sheath. FINDINGS: The left ventriculogram was performed in standard 30-degree IBRAHIM view, reveals global hypokinesis, ejection fraction 40%. SELECTIVE CORONARY ANGIOGRAPHY: 1. Left main showed no significant angiographic disease. 2. Left anterior descending is totally occluded. 3. Left circumflex is totally occluded. 4. The right coronary has previously placed stents. There is 95% in-stent restenosis. 5. Vein graft to the LAD diagonal is patent. Distal LAD diagonal is patent. 6. Vein graft to the circumflex is patent. Distal circumflex is patent. 7. HARTLEY to the LAD is patent. Distal LAD has 95% in-stent restenosis times 2. PTCA stent of the LAD through the patent HARTLEY graft. Stents used were 2.0 x 22 and 2.5 x 12 both Moncho stents. Result was 0% residual stenosis throughout. Laser atherectomy, PTCA stent of the RCA. Laser atherectomy was performed with a 0.9 mm catheter at 80/40. Multiple passes were made. Stenting was undertaken with a 2.5 x 38 mm [facility]. Result was 0% residual stenosis. OVERALL IMPRESSION: Successful percutaneous transluminal coronary angioplasty stent, laser atherectomy of the RCA. Successful percutaneous transluminal coronary angioplasty stent of the left anterior descending, both going from 95% initial stenosis to 0% residual. TRANSINT:[id number] Voice Confirmation ID: [id number] DOCUMENT ID: [id number] OPERATIVE REPORT [id number] TRACY WEST LIZZY WILSON MD at 1431 CC: [id number] DICTATION DATE: 07/01/19 1549 DUAL HOSE CEMENTER: 07/01/19 1859 DIS IN 07/02/19 [address] [facility] [place] [address]
--- NOTE | 2019-07-06 14:32 | DS ---
PATIENT:TRACY WEST :42 MEDICAL RECORD: [id number] DISCHARGE SUMMARY ADMISSION DATE: 07/01/19 DISCHARGE DATE: 07/02/19 DIAGNOSES: 1. Unstable angina. 2. Coronary artery disease. 3. Percutaneous transluminal coronary angioplasty stent left anterior descending and right coronary artery this admission. HOSPITAL COURSE: Mr. West presents with unstable anginal symptomatology, found to have significant disease of the LAD and RCA, underwent successful PTCA stent of both territories with no further angina. Discharged home to continue medications as he is already on aspirin and Plavix. We will follow up with [facility] in 1 month. TRANSINT:[id number] Voice Confirmation ID: [id number] DOCUMENT ID: [id number] LIZZY WILSON MD at 1432 CC: [id number] DICTATION DATE: 07/02/19 1013 PEDIATRIC CLINICAL DIETICIAN: 07/02/19 1253 DIS IN 07/02/19 [id number] [place] [address]
== END 2019-07-02 12:15 | disposition home or self-care (01) | DRG 175 ==
LOC: D.ER 11:03 → D.M2 13:20
PROVIDERS: Family Medicine; ADMIT Internal Medicine Interventional Cardiology; ATTEND Internal Medicine Interventional Cardiology
PROC: 4A023N7 Measurement of Cardiac Sampling and Pressure, Left Heart, Percutaneous Approach (ICD-10-PCS; 2019-07-01)
PROC: B2121ZZ Fluoroscopy of Single Coronary Artery Bypass Graft using Low Osmolar Contrast (ICD-10-PCS; 2019-07-01)
PROC: B2181ZZ Fluoroscopy of Left Internal Mammary Bypass Graft using Low Osmolar Contrast (ICD-10-PCS; 2019-07-01)
PROC: B2151ZZ Fluoroscopy of Left Heart using Low Osmolar Contrast (ICD-10-PCS; 2019-07-01)
PROC: B2111ZZ Fluoroscopy of Multiple Coronary Arteries using Low Osmolar Contrast (ICD-10-PCS; 2019-07-01)
PROC: 027136Z Dilation of Coronary Artery, Two Arteries with Three Drug-eluting Intraluminal Devices, Percutaneous Approach (ICD-10-PCS; principal; 2019-07-01 14:40)
PROC: 02C03ZZ Extirpation of Matter from Coronary Artery, One Artery, Percutaneous Approach (ICD-10-PCS; 2019-07-01 14:40)
DX: I25.110 Atherosclerotic heart disease of native coronary artery with unstable angina pectoris (principal); J44.9 Chronic obstructive pulmonary disease, unspecified; I10 Essential (primary) hypertension
CPT/HCPCS: C9602; 93459; C9600 ×2

== ENCOUNTER 2019-09-08 15:03 | Emergency (ER) | payer MEDICARE, BC ==
[~2019-09-08] VITALS: Ht 172.7 cm; Wt 77.3 kg
[~2019-09-08 15:03] MED LIST changes: +KEFLEX500 MG PO; +ROXICODONE15 MG PO
[2019-09-08 15:42] VITALS: Ht 172.7 cm; Wt 77.3 kg
[2019-09-08 16:23] LABS: BASOPHILS 0.3 % (0-2); EOSINOPHILS 2.3 % (0-7); HEMATOCRIT 46.9 % (42.0-54.0); HEMOGLOBIN 15.7 g/dL (13.5-17.5); IMMATURE GRANULOCYTES 0.4 % (0-5); LYMPHOCYTES 29.1 % (15-50); MCH 31.5 pg (26.0-34.0); MCHC 33.5 g/dL (31.0-37.0); MEAN PLATELET VOLUME 8.9 fL (7.4-10.4); NEUTROPHILS 57.9 % (40-80); RBC 4.99 10x6/uL (4.20-6.10); RDW 13.3 % (11.5-14.5); WBC 9.2 10x3/uL (4.8-10.8)
[2019-09-08 16:26] LABS: PLATELET COUNT 340 10x3/uL (130-400)
[2019-09-08 16:33] LABS: CALC OSMOLALITY 277 mosm/kg (275-300); CALCIUM 9.3 mg/dL (8.5-10.1); CARBON DIOXIDE 30.9 mmol/L (21.0-32.0); CHLORIDE - SERUM 101 mmol/L (98-107); CREATININE - SERUM 1.6 mg/dL (0.6-1.3); GLUCOSE 115 mg/dL (74-106); POTASSIUM - SERUM 4.1 mmol/L (3.5-5.1); SODIUM 138 mmol/L (136-145); UREA NITROGEN 16 mg/dL (7-18); eGFR NON AFRICAN AMERICAN 45 mL/min (90-120)
[2019-09-08 16:34] LABS: APTT 34.6 SECONDS (22.8-39.4); INR 1.12 (0.85-1.17); PROTIME 13.9 SECONDS (11.6-15.0)
[2019-09-08 16:50] LABS: ALBUMIN 3.7 g/dL (3.4-5.0); ALKALINE PHOSPHATASE 88 U/L (46-116); ALT (SGPT) 25 U/L (10-68); BILIRUBIN - TOTAL 0.46 mg/dL (0.2-1.3); CKMB 0.5 U/L (0.0-3.6); CREATINE KINASE 38 UL (21-232); MAGNESIUM - SERUM 2.1 mg/dL (1.8-2.4); PROTEIN - SERUM 7.9 g/dL (6.4-8.2); THYROID STIMULATING HORMONE 3.09 uIU/mL (0.36-3.74); TROPONIN-I < 0.017 ng/mL (0.000-0.060)
[2019-09-08 17:43] LABS: APPEARANCE CLEAR (CLEAR); BILIRUBIN NEGATIVE (NEGATIVE); COLOR YELLOW (YELLOW); GLUCOSE NEGATIVE (NEGATIVE); KETONE NEGATIVE (NEGATIVE); NITRITE NEGATIVE (NEGATIVE); PROTEIN NEGATIVE (NEGATIVE); UROBILINOGEN NORMAL (NORMAL)
[2019-09-08 17:51] LABS: UDS - AMPHET NEGATIVE QUAL (NEGATIVE); UDS - BARB NEGATIVE QUAL (NEGATIVE); UDS - BENZO NEGATIVE QUAL (NEGATIVE); UDS - COCAINE NEGATIVE QUAL (NEGATIVE); UDS - OPIATE POSITIVE QUAL (NEGATIVE); UDS - PCP NEGATIVE QUAL (NEGATIVE); UDS - THC NEGATIVE QUAL (NEGATIVE)
[2019-09-08] MEDS ORDERED: CLEOCIN HCL300 MG PO (18:26)
[2019-09-08] MEDS ORDERED: FLUTICASONE PRO16 GM NASAL (18:26)
[2019-09-08 19:05] VITALS: BP 159/79
== END 2019-09-08 19:05 | disposition home or self-care (01) ==
LOC: D.ER 15:03
PROVIDERS: Family Medicine
DX: J01.90 Acute sinusitis, unspecified (principal); N18.3 Chronic kidney disease, stage 3 (moderate); R53.81 Other malaise; R53.83 Other fatigue; R53.1 Weakness; Z95.1 Presence of aortocoronary bypass graft; I25.10 Atherosclerotic heart disease of native coronary artery without angina pectoris; Z87.01 Personal history of pneumonia (recurrent); J84.10 Pulmonary fibrosis, unspecified